=== PATIENT | male | born 1955 | race Caucasian/White ===

== ENCOUNTER 2018-06-07 09:14 | Observation (INO) | payer OTHER ==
[2018-06-07] MEDS ORDERED: NITROGLYCERIN 0.4 MG/TAB SL ONE (09:34)
[2018-06-07] MEDS ORDERED: MORPHINE 4 MG/ML SYR ONE (09:34)
[2018-06-07] MEDS ORDERED: ONDANSETRON 4 MG/2 ML VIAL ONE (09:34)
[2018-06-07 09:40] LABS: Absolute Lymphocytes (CBC) 2.1 K/uL (0.7-4.9); Absolute Neutrophil 13.1 K/uL (1.8-8.0); Basophils % 0.5 % (0-1.3); Eosinophils % 2.1 % (0-4.4); Hematocrit 50.8 % (39.6-49.0); Lymphocytes % 12.6 % (15.3-44.8); RBC Red Blood Cell Count 5.46 M/uL (4.33-5.43)
[2018-06-07] MEDS ORDERED: FAMOTIDINE 20 MG/2 ML VIAL IV ONE (09:57)
[2018-06-07 09:59] LABS: Protime INR 0.97
[2018-06-07] MEDS ORDERED: FENTANYL CITR 100 MCG/2 ML ONE (10:04)
[2018-06-07 10:05] LABS: ALT/SGPT 112 U/L (12-78); AST/SGOT 50 U/L (15-37); Albumin 4.1 g/dL (3.4-5.0); Alkaline Phosphatase 109 U/L (45-117); BUN Blood Urea Nitrogen 12 mg/dL (7-18); Bicarbonate 28 mmol/L (21-32); Bilirubin Direct 0.1 mg/dL (0-0.2); Bilirubin Total 0.6 mg/dL (0.2-1.0); Glucose Level 91 mg/dL (74-106); Magnesium 2.2 mg/dL (1.8-2.4); NT PRO-BNP 6 pg/mL (<125); Potassium 4.6 mmol/L (3.5-5.1); Protein, Total 7.5 g/dL (6.4-8.2); Sodium Level 137 mmol/L (136-145); Troponin (Emerg Dept Use Only) < 0.02 ng/mL (0.0-0.045)
[2018-06-07 10:26] LABS: Blood Morphology Comment NOT SEEN (NOT SEEN); Platelet Estimate ADEQ
--- NOTE | 2018-06-07 10:53 | RAD REPORT ---
EXAM DESCRIPTION: CT - Chest Angio - 06/07/2018 10:25 am CLINICAL HISTORY: Chest pain COMPARISON: None. TECHNIQUE: Dynamically enhanced axial 3 mm thick images of the chest were obtained during administra tion of <100> mL Isovue 370 IV contrast. Coronal and oblique reconstruction images were generated and reviewed. Exam utilizes a protocol for optimal evaluation of pulmonary arterial tree. Maximum intensity projections 3D imaging was utilized All CT scans are performed using dose optimization technique as appropriate and may include automated exposure control or mA/KV adjustment according to patient size. FINDINGS: The opacification of the pulmonary arteries is suboptimal. A central pulmonary embolus is not seen. Evaluation of segmental and subsegmental branches is limited Ascending aorta has an AP diameter of 3.9 centimeters. A pleural effusion is not seen. A pericardial effusion is not seen. A lung consolidation is not present. A fatty liver is present. IMPRESSION: Negative for a central pulmonary embolus. Evaluation of segmental and subsegmental branc hes is limited
--- NOTE | 2018-06-07 11:09 | RAD REPORT ---
EXAM DESCRIPTION: Amanda Single View06/07/2018 9:44 am CLINICAL HISTORY: Chest pain COMPARISON: 2012 FINDINGS: The lungs appear clear of acute infiltrate. The heart is normal size IMPRESSION: No acute abnormalities displayed
[2018-06-07] MEDS ORDERED: NA CHLORIDE 0.9% 500 ML ONE (11:17)
--- NOTE | 2018-06-07 11:26 | EKG ---
Test Date: 2018-06-07 Test Time: 09:22:00 Collar Trimmer: JAYLENE MEASUREMENT RESULTS: Intervals: Rate: 100 WI: 186 QRSD: 84 QT: 348 QTc: 448 [place]: P: 59 WI: 186 QRS: -33 T: 44 INTERPRETIVE STATEMENTS: Normal sinus rhythm Left axis deviation Possible Inferior infarct, age undetermined Abnormal ECG Compared to ECG 04/25/2012 23:06:50 Left-axis deviation now present Myocardial infarct finding now present Incomplete right bundle-branch block no longer present Electronically Signed On 06-07-18 11:25:55 [employer] by Jose Jennings
--- NOTE | 2018-06-07 11:53 | ER ---
Nurse's Notes [facility] Name: Bandar Mayo Age: 63 yrs Sex: Male : 1955 Arrival Date: 06/07/2018 Time: 09:15 Bed 4 Private MD: Diagnosis: Chest pain, unspecified Presentation: 06/07 09:22 Presenting complaint: Patient states: Sudden onset severe substernal chest pain that hb radiates to right neck that started at 0300 today. Transition of care: patient was not received from another setting of care. Onset of symptoms was June 07, 2018. Risk Assessment: Do you want to hurt yourself or someone else? Patient reports no desire to harm self or others. Care prior to arrival: None. 09:22 Method Of Arrival: Ambulatory 09:22 Acuity: SAMUEL 2 hb 09:37 Initial Sepsis Screen: Does the patient meet any 2 criteria? No. Patient's initial ph sepsis screen is negative. Does the patient have a suspected source of infection? No. Patient's initial sepsis screen is negative. Triage Assessment: 09:24 General: Appears distressed, uncomfortable, Behavior is cooperative, anxious. Pain: hb Pain currently is 7 out of 10 on a pain scale. Neuro: Level of Consciousness is awake, alert, obeys commands, Oriented to person, place, time, situation. Cardiovascular: Reports chest pain, shortness of breath. Respiratory: Airway is patent Respiratory effort is even, pursed lip, Respiratory pattern is regular, symmetrical. Historical: - Allergies: 09:24 No Known Allergies; hb - Home Meds: 09:24 None [Active]; hb - PMHx: 09:24 None; hb - Immunization history:: Adult Immunizations up to date. - Social history:: Smoking status: Patient/guardian denies using tobacco. - Ebola Screening: : No symptoms or risks identified at this time. Screenin:37 Abuse screen: Denies threats or abuse. Denies injuries from another. Nutritional ph screening: No deficits noted. Tuberculosis screening: No symptoms or risk factors identified. Fall Risk None identified. Assessment: 09:30 General: Appears in no apparent distress. uncomfortable, obese, well groomed, Behavior ph is calm, cooperative, appropriate for age, Denies fever, feeling ill. Pain: Complains of pain in mid-sternal area Pain radiates to right supraclavicular area and back Pain currently is 8 out of 10 on a pain scale. Pain began 0300 today Aggravated by deep breathing. Neuro: Level of Consciousness is awake, alert, obeys commands, Oriented to person, place, time, situation. Cardiovascular: Reports chest pain, nausea, shortness of breath, Denies syncope, vomiting, Capillary refill < 3 seconds in bilateral fingers Patient's skin is warm and dry. Rhythm is sinus tachycardia Chest pain is described as severe, quality is pressure, is located in substernal area radiates to right back neck began suddenly, at 0300 this morning is aggravated by breathing. Respiratory: Airway is patent Respiratory effort is even, unlabored, Respiratory pattern is regular, symmetrical. GI: No signs and/or symptoms were reported involving the gastrointestinal system. Derm: Skin is intact, is healthy with good turgor, Skin is pink, warm \\T\\ dry. Musculoskeletal: Circulation, motion, and sensation intact. Range of motion: intact in all extremities. 09:42 Reassessment: Patient appears in no apparent distress at this time. Patient and/or ph family updated on plan of care and expected duration. Pain level reassessed. Patient is alert, oriented x 3, equal unlabored respirations, skin warm/dry/pink. Pt reports that pain has decreased to 1/10 after medications, BP also decreased to 122/87, rhythm remains sinus tach at 103 bpm. 10:01 Reassessment: Pt reports that pain is returning, states, " It's like at a 3 and then it ph shoots up to a 9, it comes and goes." ERP notified and at bedside, see MAR. 11:00 Reassessment: Patient appears in no apparent distress at this time. Patient and/or ph family updated on plan of care and expected duration. Pain level reassessed. Patient is alert, oriented x 3, equal unlabored respirations, skin warm/dry/pink. Pt rates pain 3/10 at this time, VSS, will continue to monitor. 12:00 Reassessment: Patient appears in no apparent distress at this time. Patient and/or ph family updated on plan of care and expected duration. Pain level reassessed. Patient is alert, oriented x 3, equal unlabored respirations, skin warm/dry/pink. Pt reports that pain is 2/10 at this time, denies nausea or SOB, awaiting room assignment, VSS, at bedside. 13:00 Reassessment: Patient appears in no apparent distress at this time. Patient and/or ph family updated on plan of care and expected duration. Pain level reassessed. Patient is alert, oriented x 3, equal unlabored respirations, skin warm/dry/pink. Pt resting quietly, reports pain 2/10 and ninfa nausea or SOB at this time. 14:00 Reassessment: Patient appears in no apparent distress at this time. Patient and/or ph family updated on plan of care and expected duration. Pain level reassessed. Patient is alert, oriented x 3, equal unlabored respirations, skin warm/dry/pink. Pt taken to inpatient room by tech, accompanied by family. Vital Signs: 09:23 BP 167 / 107; Pulse 104; Resp 20; Temp 98.2; Pulse Ox 97% on R/A; Pain 7/10; hb 09:36 BP 122 / 87; Pulse 112; Resp 20; Pulse Ox 95% on R/A; Pain 1/10; ph 11:00 BP 109 / 80; Pulse 79; Resp 18; Pulse Ox 96% on 2 lpm NC; ph 12:04 BP 125 / 72; Pulse 80; Resp 18; Pulse Ox 97% on 2 lpm NC; ph 13:00 BP 118 / 68; Pulse 81; Resp 18; Pulse Ox 99% on 2 lpm NC; ph 13:45 BP 120 / 71; Pulse 78; Resp 16; Temp 98.0; Pulse Ox 99% on 2 lpm NC; ph Vitals: 11:00 Cardiac Rhythm Assessment Sinus rhythm. ph ED Course: 09:15 Patient arrived in ED. as 09:21 Param Faust MD is Attending Physician. kdr 09:21 Preethi Nolan, GABRIELA is Primary Nurse. ph 09:22 Arm band placed on. hb 09:23 Triage completed. hb 09:25 Initial lab(s) drawn, by me, held in ED. Inserted saline lock: 20 gauge in right sg antecubital area, using aseptic technique. Blood collected. Oxygen administration via nasal cannula \\T\\ 2L/min. 09:28 EKG done, by business technology architect. reviewed by Param Faust MD. sm3 09:37 Patient has correct armband on for positive identification. Placed in gown. Bed in low ph position. Call light in reach. Side rails up X 1. bus monitor on. Pulse ox on. NIBP on. 09:38 X-ray completed. Portable x-ray completed in exam room. Patient tolerated procedure jb2 well. 09:41 XRAY Chest (1 view) In Process Unspecified. EDMS 10:23 CT completed. Patient tolerated procedure well. Patient moved to CT via wheelchair. Patient moved back from CT. 10:24 CT Chest Angio In Process Unspecified. EDMS 11:29 EKG done, by business technology architect. reviewed by Param Faust MD. sm3 11:51 Lorenza Mccain MD is Hospitalizing Provider. kdr 14:00 No provider procedures requiring assistance completed. Patient admitted, IV remains in ph place. Administered Medications: 09:33 Drug: Zofran 4 mg Route: IVP; Site: right antecubital; ph 09:35 Drug: morphine 4 mg Route: IVP; Site: right antecubital; ph 09:35 Drug: Nitroglycerin 0.4 mg Route: Sublingual; ph 09:55 Drug: Pepcid 20 mg Route: IVP; Site: right antecubital; ph 10:03 Drug: fentaNYL (PF) 25 mcg Route: IVP; Site: right antecubital; ph 12:40 Drug: fentaNYL (PF) 25 mcg Route: IVP; Site: right antecubital; ph 14:05 Not Given (Hemodynamic Parameters): NS 0.9% 500 ml IV at bolus once ph Outcome: 11:51 Decision to Hospitalize by Provider. kdr 14:05 Patient left the ED. ph 14:05 Admitted to Tele accompanied by tech, family with patient, via wheelchair, with oxygen, ph with chart. 14:05 Condition: stable 14:05 Instructed on the need for admit. Signatures: Dispatcher [employer] EDMS Maxx Lugo RN RN Param Faust MD MD [facility] Antony Renee Susan sj Martinez, Amelia as Hall, Patricia, RN RN Cecilia Worthy RN RN Vanessa Lange sm3
--- NOTE | 2018-06-07 11:53 | EDPHYS ---
Physician Documentation [facility] Name: Bandar Mayo Age: 63 yrs Sex: Male : 1955 Arrival Date: 06/07/2018 Time: 09:15 Bed 4 Private MD: ED Physician Param Faust HPI: 06/07 11:51 This 63 yrs old Male presents to ER via Ambulatory with complaints of Chest kdr Pain. 11:51 The patient or guardian reports chest pain that is located primarily in the substernal kdr area, anterior chest wall. Onset: acutely, suddenly, at 07:00. The pain radiates to neck, Associated signs and symptoms: Pertinent positives: nausea, shortness of breath, Pertinent negatives: abdominal pain, syncope, vomiting. The chest pain is described as aching, sharp, stabbing. Duration: The patient or guardian reports a single episode, that is still ongoing, and worsening. Modifying factors: The symptoms are alleviated by nothing. the symptoms are aggravated by activity, movement. Severity of pain: At its worst the pain was incapacitating in the emergency department the pain is unchanged Intermittent, waxes and wanes. The patient has not recently seen a physician. Historical: - Allergies: 09:24 No Known Allergies; hb - Home Meds: 09:24 None [Active]; hb - PMHx: 09:24 None; hb - Immunization history:: Adult Immunizations up to date. - Social history:: Smoking status: Patient/guardian denies using tobacco. - Ebola Screening: : No symptoms or risks identified at this time. ROS: 11:51 Constitutional: Negative for fever, chills, and weight loss, Eyes: Negative for injury, kdr pain, redness, and discharge, ENT: Negative for injury, pain, and discharge, Neck: Negative for injury, pain, and swelling, Respiratory: Negative for shortness of breath, cough, wheezing, and pleuritic chest pain, Abdomen/GI: Negative for abdominal pain, nausea, vomiting, diarrhea, and constipation, Back: Negative for injury and pain, : Negative for injury, bleeding, discharge, and swelling, MS/Extremity: Negative for injury and deformity, Skin: Negative for injury, rash, and discoloration, Neuro: Negative for headache, weakness, numbness, tingling, and seizure activity. Psych: Negative for depression, anxiety, suicide ideation, homicidal ideation, and hallucinations, Allergy/Immunology: Negative for hives, rash, and allergies, Endocrine: Negative for neck swelling, polydipsia, polyuria, polyphagia, and marked weight changes, Hematologic/Lymphatic: Negative for swollen nodes, abnormal bleeding, and unusual bruising. 11:51 Cardiovascular: Positive for chest pain, Negative for edema, orthopnea, palpitations, paroxysmal nocturnal dyspnea. Exam: 11:51 Constitutional: This is a well developed, well nourished patient who is awake, alert, kdr and in moderate to severe distress. Head/Face: Normocephalic, atraumatic. Eyes: Pupils equal round and reactive to light, extra-ocular motions intact. Lids and lashes normal. Conjunctiva and sclera are non-icteric and not injected. Cornea within normal limits. Periorbital areas with no swelling, redness, or edema. Neck: Trachea midline, no thyromegaly or masses palpated, and no cervical lymphadenopathy. Supple, full range of motion without nuchal rigidity, or vertebral point tenderness. No Meningismus. Chest/axilla: Normal chest wall appearance and motion. Nontender with no deformity. No lesions are appreciated. Cardiovascular: Regular rate and rhythm with a normal S1 and S2. No gallops, murmurs, or rubs. Normal PMI, no JVD. No pulse deficits. Respiratory: Lungs have equal breath sounds bilaterally, clear to auscultation and percussion. No rales, rhonchi or wheezes noted. No increased work of breathing, no retractions or nasal flaring. Abdomen/GI: Soft, non-tender, with normal bowel sounds. No distension or tympany. No guarding or rebound. No evidence of tenderness throughout. Back: No spinal tenderness. No costovertebral tenderness. Full range of motion. Skin: Warm, dry with normal turgor. Normal color with no rashes, no lesions, and no evidence of cellulitis. MS/ Extremity: Pulses equal, no cyanosis. Neurovascular intact. Full, normal range of motion. Neuro: Awake and alert, GCS 15, oriented to person, place, time, and situation. Cranial nerves II-XII grossly intact. Motor strength 5/5 in all extremities. Sensory grossly intact. Cerebellar exam normal. Normal gait. Psych: Awake, alert, with orientation to person, place and time. Behavior, mood, and affect are within normal limits. Vital Signs: 09:23 BP 167 / 107; Pulse 104; Resp 20; Temp 98.2; Pulse Ox 97% on R/A; Pain 7/10; hb 09:36 BP 122 / 87; Pulse 112; Resp 20; Pulse Ox 95% on R/A; Pain 1/10; ph 11:00 BP 109 / 80; Pulse 79; Resp 18; Pulse Ox 96% on 2 lpm NC; ph 12:04 BP 125 / 72; Pulse 80; Resp 18; Pulse Ox 97% on 2 lpm NC; ph 13:00 BP 118 / 68; Pulse 81; Resp 18; Pulse Ox 99% on 2 lpm NC; ph 13:45 BP 120 / 71; Pulse 78; Resp 16; Temp 98.0; Pulse Ox 99% on 2 lpm NC; ph MDM: 11:51 Patient medically screened. kdr 11:51 ROLANDA Risk Score: 1 - patient's age is greater or equal to 65 years. Data reviewed: [facility] vital signs, nurses notes. Counseling: I had a detailed discussion with the patient and/or guardian regarding: lab results, radiology results, the need for further work-up and treatment in the hospital. 06/07 09:21 Order name: Basic Metabolic Panel; Complete Time: 11:00 [facility] 06/07 09:21 Order name: CBC with Diff; Complete Time: 11:00 [facility] 06/07 09:21 Order name: LFT's; Complete Time: 11:00 [facility] 06/07 09:21 Order name: Magnesium; Complete Time: 11:00 [facility] 06/07 09:21 Order name: NT PRO-BNP; Complete Time: 11:00 [facility] 06/07 09:21 Order name: PT-INR; Complete Time: 11:00 [facility] 06/07 09:21 Order name: Troponin (emerg Dept Use Only); Complete Time: 11:00 [facility] 06/07 09:21 Order name: XRAY Chest (1 view); Complete Time: 11:42 kdr 06/07 09:30 Order name: CT Chest Angio; Complete Time: 11:42 kdr 06/07 10:00 Order name: Manual Differential; Complete Time: 11:00 EDMS 06/07 12:17 Order name: Echo with Doppler EDMS 06/07 12:17 Order name: Abdomen Exam Complete EDMS 06/07 09:21 Order name: EKG; Complete Time: 09:23 [facility] 06/07 09:21 Order name: Cardiac monitoring; Complete Time: :36 [facility] 06/07 09:21 Order name: EKG - Nurse/Tech; Complete Time: :36 [facility] 06/07 09:21 Order name: IV Saline Lock; Complete Time: :36 [facility] 06/07 09:21 Order name: Labs collected and sent; Complete Time: [facility] 06/07 09:21 Order name: O2 Per Protocol; Complete Time: :36 [facility] 06/07 09:21 Order name: O2 Sat Monitoring; Complete Time: :36 [facility] 06/07 11:31 Order name: EKG Electrocardiogram EDMS 06/07 12:17 Order name: CONS Physician Consult [facility] Administered Medications: 09:33 Drug: Zofran 4 mg Route: IVP; Site: right antecubital; ph 09:35 Drug: morphine 4 mg Route: IVP; Site: right antecubital; ph 09:35 Drug: Nitroglycerin 0.4 mg Route: Sublingual; ph 09:55 Drug: Pepcid 20 mg Route: IVP; Site: right antecubital; ph 10:03 Drug: fentaNYL (PF) 25 mcg Route: IVP; Site: right antecubital; ph 12:40 Drug: fentaNYL (PF) 25 mcg Route: IVP; Site: right antecubital; ph 14:05 Not Given (Hemodynamic Parameters): NS 0.9% 500 ml IV at bolus once ph Disposition: 06/07/18 11:51 Hospitalization ordered by Lorenza Mccain for Observation. Preliminary diagnosis is Chest pain, unspecified. - Bed requested for Telemetry/MedSurg (observation). - Status is Observation. ph - Condition is Fair. - Problem is new. - Symptoms have improved. UTI on Admission? No Signatures: Dispatcher [employer] [facility] Pam Chin RN RN dw Rittger, Kevin, MD MD [facility] Preethi Nolan RN RN Cecilia Worthy RN RN Corrections: (The following items were deleted from the chart) 12:54 11:51 Hospitalization Ordered by Lorenza Mccain MD for Observation. Preliminary diagnosis is Chest pain, unspecified. Bed requested for Telemetry/MedSurg (observation). Status is Observation. Condition is Fair. Problem is new. Symptoms have improved. UTI on Admission? No. kdr 14:05 12:54 06/07/2018 11:51 Hospitalization Ordered by Lorenza Mccain MD for Observation. ph Preliminary diagnosis is Chest pain, unspecified. Bed requested for Telemetry/MedSurg (observation). Status is Observation. Condition is Fair. Problem is new. Symptoms have improved. UTI on Admission? No. dw
--- NOTE | 2018-06-07 13:32 | RAD REPORT ---
EXAM DESCRIPTION: US - Abdomen Exam Complete - 06/07/2018 12:57 pm CLINICAL HISTORY: Abnormal LFTs COMPARISON: MRI May 2012 FINDINGS: Gallbladder is absent. Common bile duct is normal at 4 mm with no common duct stone identi fied. Liver is 17-18 cm in maximum dimension. There is a coarsened, increased echogenicity throughout the liver parenchyma with a poor sonographic penetrance. This is a common presentation of diffuse fa tty infiltration of the liver. Sensitivity for liver lesion detection is significantly reduced with t his degree of fatty infiltration. No focal liver lesions seen. No acute splenic finding. The pancreas is obscured. No hydronephrosis or suspicious mass in either kidney. Aorta and IVC are mostly obscured. No abnormality suspected. No ascites or bulky lymphadenopathy. IMPRESSION: Diffuse fatty infiltration of a prominent sized liver. The degree of fatty infiltration decreases sensitivity for liver lesion detection. Cholecystectomy changes are present. No biliary tree dilatation. Pancreas, IVC and aorta were too obscured to allow adequate assessment.
[2018-06-07] MEDS ORDERED: ONDANSETRON 4 MG/2 ML VIAL IV PRN (13:42)
--- NOTE | 2018-06-07 14:37 | P.HP ---
Certification for Inpatient Patient admitted to: Observation With expected LOS: <2 Midnights Patient will require the following post-hospital care: None Practitioner: I am a practitioner with admitting privileges, knowledge of patient current condition, hospital course, and medical plan of care. Services: Services provided to patient in accordance with Admission requirements found in Title 42 Section 412.3 of the Code of Federal Regulations Patient History Date of Service: 06/07/18 Reason for admission: Chest pain History of Present Illness: This is a 63-year-old male with significant past medical history of hypertension who presented to the ED complaining of having some chest pain and shortness of breath. Patient stated that last night he was sleeping and around 3:00 a.m. noted that he was having some sharp shooting chest pain and the epigastric area which was staying in the mid sternum area afterwards. Patient took Tylenol however did not help with chest pain eventually he did fall asleep and woke up around 6:00 a.m. again with sharp shooting chest pain and thus decided to come to the ER. Chest pain at its worst was a 10/10 and was sharp in nature. Patient has not had similar episodes in the past. Patient states that the pain does not radiate anywhere and remains in the substernal area. Patient also noted having some dyspnea along with chest pain. No other complaints to offer at this time. Denies having any nausea vomiting or any other acute abnormality. Patient is denies smoking or drugs however does state that he uses 2 beers of alcohol every night. Allergies No Known Allergies Allergy (Unverified 04/25/12 23:14) Home Medications: NK [No Home Meds] 06/07/18 - Past Medical/Surgical History Past Medical History: Reviewed- Non-Contributory -: Hypertension Past Surgical History: Patient denies surgical history - Family History Family History: Reviewed- Non-Contributory - Family History Father Notes: lung cancer - Social History Smoking Status: Never smoker Alcohol use: Yes CD- Drugs: No Caffeine use: No Place of Residence: Home Review of Systems 10-point ROS is otherwise unremarkable Physical Examination - Vital Signs Temperature: 98.2 F Blood Pressure: 122/87 Pulse: 112 Respirations: 20 - Physical Exam General: Alert, In no apparent distress HEENT: Atraumatic, PERRLA, Mucous membr. moist/pink, EOMI, Sclerae nonicteric Neck: Supple, 2+ carotid pulse no bruit, No LAD, Without JVD or thyroid abnormality Respiratory: Clear to auscultation bilaterally, Normal air movement Cardiovascular: Regular rate/rhythm, Normal S1 S2 Gastrointestinal: Normal bowel sounds, No tenderness Musculoskeletal: No tenderness Integumentary: No rashes Neurological: Normal gait, Normal speech, Normal strength at 5/5 x4 extr, Normal tone, Normal affect Lymphatics: No axilla or inguinal lymphadenopathy - Studies Laboratory Data (last 24 hrs) 06/07/18 09:30: PT 11.5, INR 0.97 06/07/18 09:30: WBC 16.6 H, Hgb 17.1, Hct 50.8 H, Plt Count 295 06/07/18 09:30: Sodium 137, Potassium 4.6, BUN 12, Creatinine 0.98, Glucose 91, Magnesium 2.2, Total Bilirubin 0.6, AST 50 H, ALT 112 H, Alkaline Phosphatase 109 Assessment and Plan - Problems (Diagnosis) (1) Chest pain Current Visit: Yes Status: Acute Plan: Chest pain most likely secondary to demand ischemia secondary to elevated blood pressure versus undiagnosed LEONA -troponin x2 ordered at this time -cardiology consulted. Appreciated recommendations -echocardiogram and stress test for tomorrow -started on aspirin and beta-lacy at this time -patient will need to get his blood pressure within normal ranges and have outpatient sleep study -will follow up with patient after echocardiogram and stress test was done Qualifiers: Chest pain type: unspecified Qualified Code(s): R07.9 - Chest pain, unspecified (2) Elevated LFTs Current Visit: Yes Status: Acute Plan: Elevated LFTs. Patient does have alcoholic beverage 2 beers every night. -abdominal ultrasound consistent with fatty infiltrate. -alcohol cessation given to the patient (3) Hypertension Current Visit: Yes Status: Chronic Plan: Will restart home medication at this time -elevated initially in the ER causing demand ischemia. Qualifiers: Hypertension type: essential hypertension Qualified Code(s): I10 - Essential (primary) hypertension (4) LEONA (obstructive sleep apnea) Current Visit: Yes Status: Acute Plan: Undiagnosed LEONA. -patient states that he does snore at night time and has been having tiredness during the daytime. -Patient's has noticed him having apneic episodes at night time as well. -patient will need outpatient sleep study done to be evaluated for LEONA and have a CPAP mask ordered if he does qualify for it. (5) Alcohol abuse Current Visit: Yes Status: Acute Plan: Patient takes about 2-3 bottles of beer every night. Has been doing it for more than 20 years. - Plan Patient will be admitted to medical-surgical floor for chest pain and elevated LFTs. Will get a echocardiogram and firm stress test done along with liver ultrasound. Will follow up with patient post diagnostic test. Discharge Plan: Home Plan to discharge in: 48 Hours - Advance Directives Does patient have a Living Will: No Does patient have a Durable POA for Healthcare: No - Code Status/Comfort Care Code Status Assessed: Yes Critical Care: No
[2018-06-07 14:52] VITALS: BMI 29.6
[2018-06-07] MEDS: ACETAMINOPHEN 500 MG TAB PO PRN ×2 (15:00→18:33)
[2018-06-07] MEDS: ENOXAPARIN 40 MG/0.4 ML SQ SCH (15:01)
[2018-06-07] MEDS ORDERED: INFLUENZA VACCINE (for 3y+) 0.5 ML DOSE IMVAC ONE (16:00)
[2018-06-07] MEDS ORDERED: PNEUMOCOCCAL VACCINE 0.5 ML IMVAC ONE (16:00)
[2018-06-07 18:02] LABS: Urine Appearance CLEAR; Urine Bilirubin NEGATIVE (NEG); Urine Blood NEGATIVE (NEG); Urine Color YELLOW; Urine Glucose NEGATIVE (NEG); Urine Protein NEGATIVE (NEG); Urine Specific Gravity >=1.030 (1.005-1.030); Urine Urobilinogen 0.2 mg/dL (0.2-1.0)
[2018-06-07 20:26] LABS: Urine Bacteria <20 /HPF (NONE SEEN); Urine Culture Reflex Order NOT NEEDED; Urine RBC <5 /HPF (NONE SEEN)
[2018-06-07] MEDS ORDERED: ATORVASTATIN 40 MG TAB PO SCH (21:00)
[2018-06-07 21:59] VITALS: O2SAT 94
[2018-06-08] MEDS ORDERED: METOPROLOL TAR 25 MG TAB PO SCH (06:00)
[2018-06-08 06:42] LABS: Albumin 3.4 g/dL (3.4-5.0); Potassium 4.5 mmol/L (3.5-5.1); Protein, Total 6.7 g/dL (6.4-8.2)
[2018-06-08] MEDS ORDERED: REGADENOSON 0.4 MG/5 ML SYR IV ONE (07:57)
[2018-06-08 08:49] VITALS: BP 127/69; TEMP 98
[2018-06-08] MEDS ORDERED: ASPIRIN EC 81 MG TAB PO SCH (09:00)
--- NOTE | 2018-06-08 09:35 | RAD REPORT ---
EXAM DESCRIPTION: NM - Rest Stress Cardiac Imaging - 06/08/2018 9:15 am CLINICAL HISTORY: CP Chest pain. COMPARISON: No comparisons TECHNIQUE: The patient was administered approximately 10mCi of Tc 99m Sestamibi prior to resting SPE CT imaging of the heart. The patient was then administered approximately 30 mCi of Tc 99m Sestamibi f ollowing exercise or pharmacologic stress. Multiplanar SPECT images were reviewed. FINDINGS: No stress induced ischemic defect is seen to suggest stress induced ischemia. No fixed def ect is seen to suggest hibernating myocardium or scarred myocardium. The end diastolic volume is 99 ml, the end systolic volume is 41 ml, and the ejection fraction is 58 %. IMPRESSION: No stress induced ischemia.
[2018-06-08] MEDS: ENOXAPARIN 40 MG/0.4 ML SQ SCH (09:45)
--- NOTE | 2018-06-08 13:20 | P.SSS ---
Patient History Date of Service: 06/08/18 Reason for admission: Chest pain History of Present Illness: This is a 63-year-old male with significant past medical history of hypertension who presented to the ED complaining of having some chest pain and shortness of breath. Patient stated that last night he was sleeping and around 3:00 a.m. noted that he was having some sharp shooting chest pain and the epigastric area which was staying in the mid sternum area afterwards. Patient took Tylenol however did not help with chest pain eventually he did fall asleep and woke up around 6:00 a.m. again with sharp shooting chest pain and thus decided to come to the ER. Chest pain at its worst was a 10/10 and was sharp in nature. Patient has not had similar episodes in the past. Patient states that the pain does not radiate anywhere and remains in the substernal area. Patient also noted having some dyspnea along with chest pain. No other complaints to offer at this time. Denies having any nausea vomiting or any other acute abnormality. Patient is denies smoking or drugs however does state that he uses 2 beers of alcohol every night. Allergies No Known Allergies Allergy (Unverified 04/25/12 23:14) Home Medications: NK [No Home Meds] 06/07/18 - Past Medical/Surgical History Has patient received pneumonia vaccine in the past: No Diabetic: No -: Hypertension -: Carpal Tunnel Surgery both hands -: Bilateral elbow surgery -: Bilateral Shoulder Tear Surgery -: Cholecystectomy -: Appendectomy -: Bilateral knee surgery - Family History Family History: Reviewed- Non-Contributory - Family History Father Notes: lung cancer - Social History Smoking Status: Never smoker Alcohol use: Yes CD- Drugs: No Caffeine use: No Place of Residence: Home Review of Systems 10-point ROS is otherwise unremarkable Physical Examination - Vital Signs Temperature: 98.0 F Blood Pressure: 127/69 Pulse: 65 Respirations: 18 Pulse Ox (%): 93 - Physical Exam General: Alert, In no apparent distress HEENT: Atraumatic, PERRLA, Mucous membr. moist/pink, EOMI, Sclerae nonicteric Neck: Supple, 2+ carotid pulse no bruit, No LAD, Without JVD or thyroid abnormality Respiratory: Clear to auscultation bilaterally, Normal air movement Cardiovascular: Regular rate/rhythm, Normal S1 S2 Gastrointestinal: Normal bowel sounds, No tenderness Musculoskeletal: No tenderness Integumentary: No rashes Neurological: Normal gait, Normal speech, Normal strength at 5/5 x4 extr, Normal tone, Normal affect Lymphatics: No axilla or inguinal lymphadenopathy - Diagnosis (Problem(s)) (1) Chest pain Onset Date: 06/08/18 Current Visit: Yes Status: Acute Qualifiers: Chest pain type: unspecified Qualified Code(s): R07.9 - Chest pain, unspecified (2) Elevated LFTs Onset Date: 06/08/18 Current Visit: Yes Status: Acute (3) Hypertension Onset Date: 06/08/18 Current Visit: Yes Status: Chronic Qualifiers: Hypertension type: essential hypertension Qualified Code(s): I10 - Essential (primary) hypertension (4) LEONA (obstructive sleep apnea) Onset Date: 06/08/18 Current Visit: Yes Status: Acute (5) Alcohol abuse Onset Date: 06/08/18 Current Visit: Yes Status: Acute Treatment Summary: Overall during the hospital stay patient remained stable The patient was initially admitted to the hospital for chest pain and elevated liver enzymes. Patient's troponin x2 was negative. EKG had nonspecific changes. Patient had ACS workup done here in the hospital with echocardiogram and stress test which were both within normal limits. Patient also had elevated liver enzymes most likely secondary to his alcohol abuse. Liver ultrasound was negative for any acute abnormality except fatty infiltration. Patient's chest pain was most likely secondary to demand ischemia from the elevated blood pressure and possible underlying LEONA that has been untreated. Patient was advised to follow up with primary care provider and get as outpatient sleep study done and have a better control of his blood pressure. Patient demonstrated understanding and thus was discharged home under stable condition. - Disposition Disposition: ROUTINE DISCHARGE Condition: GOOD Patient Discharge Instructions: Please f.u with PCP and Pulmonology in 1 to 2 week post discharge. No New medication. You Will need to F.u with PCP to get sleep study done to be evaluated for LEONA Diet: Regular Activity: Ad emilia
--- NOTE | 2018-06-08 14:05 | EKG ---
Test Date: 2018-06-07 Test Time: 11:11:08 Sash Repairer: JAYLENE MEASUREMENT RESULTS: Intervals: Rate: 77 MD: 218 QRSD: 90 QT: 368 QTc: 416 [place]: P: 51 MD: 218 QRS: 4 T: 38 INTERPRETIVE STATEMENTS: Sinus rhythm with 1st degree AV block Otherwise normal ECG Compared to ECG 06/07/2018 09:22:00 First degree AV block now present Left-axis deviation no longer present Myocardial infarct finding no longer present Electronically Signed On 06-08-18 13:59:16 CONCRETE FLOAT MAKER by Jose Jennings
--- NOTE | 2018-06-08 14:34 | ECHO ---
HEIGHT: 5 ft 8 in WEIGHT: 195 lb 2 oz DATE OF STUDY: 06/07/[address]: Lorenza Mccain MD 2-DIMENSIONAL: YES M.MODE: YES DOPPLER: YES COLOR FLOW: YES TDS: YES PORTABLE: DEFINITY: BUBBLE STUDY: DIAGNOSIS: CHEST PAIN CARDIAC HISTORY: CATHERIZATION: NO SURGERY: NO PROSTHETIC VALVE: NO PACEMAKER: NO MEASUREMENTS (cm) DIASTOLIC (NORMALS) SYSTOLIC (NORMALS) IVSd 1.2 (0.6-1.2) LA Diam 3.9 (1.9-4.0) LVEF 28% LVIDd 3.6 (3.5-5.7) LVIDs 2.6 (2.0-3.5) %FS 28% LVPWd 1.3 (0.6-1.2) Ao Diam 2.8 (2.0-3.7) 2 DIMENSIONAL ASSESSMENT: RIGHT ATRIUM: NORMAL LEFT ATRIUM: NORMAL RIGHT VENTRICLE: NORMAL LEFT VENTRICLE: NORMAL TRICUSPID VALVE: NORMAL MITRAL VALVE: NORMAL PULMONIC VALVE: NORMAL AORTIC VALVE: NORMAL PERICARDIAL EFFUSION: NONE AORTIC ROOT: NORMAL LEFT VENTRICULAR WALL MOTION: NORMAL DOPPLER/COLOR FLOW: NORMAL COMMENTS: NORMAL TWO DIMENSIONAL ECHOCARDIOGRAM WITH DOPPLER. NO WALL MOTION ABNORMALITY. NO EFFUSION. TECHNOLOGIST: STANLEY LEBLANC
--- NOTE | 2018-06-08 15:55 | TREADPHA ---
DX: CHEST PAIN Date of Study: 06/08/08 Ht: 5 8 Wt: 195 lb 2 oz Consulting Physician: DENAE MEDICATIONS: TYLENOL, ASPIRIN, LIPITOR, LOVENOX, LOPRESSOR, ZOFRAN. HISTORY: 63 YEAR MALE, COMPLAINTS OF CHEST PAIN, HISTORY, NONE. NON-SMOKER, DRINKS TWO BEERS DAILY. PHYSICIAL EXAMINATION: RESTING B.P.: 126/96 RESTING H.R.: 64 RESTING EKG: NORMAL SINUS RHYTHM, FIRST-DEGREE AV BLOCK. PROTOCOL: LEXISCAN EXERCISE TIME: 3:30 B.P. AT PEAK STRESS: 115/83 IMPRESSION: LEXISCAN INJECTED, FOLLOWED BY CARDIOLITE PER PROTOCOL, SEE NUCLEAR MEDICINE REPORT. NO SUPRAVENTRICULAR TACHYCARDIA. NO VENTRICULAR TACHYCARDIA. NO PREMATURE ATRIAL COMPLEXS. NO PREMATURE VENTRICULAR COMPLEXS. PATIENT REPORTED NO CHEST PAIN, OR TIGHTNESS THROUGHOUT PROCEDURE AND DURING RECOVERY.
[2018-06-08] MEDS ORDERED: PNEUMOCOCCAL VACCINE 0.5 ML IMVAC ONE (16:00)
[2018-06-08] MEDS ORDERED: INFLUENZA VACCINE (for 3y+) 0.5 ML DOSE IMVAC ONE (16:00)
--- NOTE | 2018-06-08 23:41 | CON ---
Date of Consultation: 06/08/[address] Mccain's service for chest pain on 06/07/2018. I saw the patient on 06/08/2018. Reason For Consultation: Chest pain. History Of Present Illness: Mr. Mayo is a 63-year-old male, has really no significant past medi juliana history. He developed a substernal chest pressure that has been going on for approximately 48 ho urs, radiating to the right neck and the back of his head. Had some nausea. No vomiting. No diapho resis. No shortness of breath. Denied PND, orthopnea, pedal edema, palpitation, or syncope. He had a white count of 16,000. Chest x-ray was negative. EKG showed possible old inferior NE. Chest thaddeus n persist. Past Medical History: Otherwise negative. Allergies: NONE. Review of Systems: Negative. Social History: Positive for tobacco. Family History: Negative. Medications: At home are none. Physical Examination: General: Mr. Mayo was still in mild discomfort, anxious. Vital Signs: Stable otherwise. Afebrile. HEENT: Negative. Neck: Supple with no bruit. Chest: Clear to auscultation and percussion. Cardiac: Revealed a regular rhythm and rate without any murmurs, gallops, or rubs. Abdomen: Benign. Extremities: Revealed no clubbing, cyanosis, or edema. Diagnostic Data: As stated earlier. Impression And Plan: Atypical chest pain in that symptoms have lasted for almost 2 days continuously without any relief and without any relationship to food, exertion. I think his symptoms are more li harrison to be related to gastroesophageal reflux disease. The patient actually woke up with his symptom s. Nevertheless, he is 63, smoker, and I think a stress test and an echocardiogram are necessary to rule out coronary artery disease. We will see what those show prior to making final decisions. SYDNIE/RAN Voice ID: [id number] Report ID: [id number]
== END 2018-06-08 15:35 | disposition home or self-care (01) ==
LOC: ER 09:14 → ERHOLD 12:14 → 4TH 13:30
PROVIDERS: ADMIT Family Medicine; ATTEND Family Medicine
DX: R07.9 Chest pain, unspecified (principal); I10 Essential (primary) hypertension; R79.89 Other specified abnormal findings of blood chemistry; F10.10 Alcohol abuse, uncomplicated; Z23 Encounter for immunization
CPT/HCPCS: 36415; 71045; 71275; 76700; 78452; 80048; 80053; 80061; 80076; 81001; 83036; 83735; 83880; 84484 ×3; 85025 ×2; 85610; 90670; 93005 ×2; 93017; 93306; 96374; 96375; A9500; G0008; G0009; G0378; J1650 ×2; J2405; J2785; J3010; Q2035; Q9967

== ENCOUNTER 2020-07-27 15:14 | Observation (INO) | payer OTHER ==
--- OUTSIDE RECORDS SUMMARY | 2020-07-27 15:17 | XMS REPORT | Continuity of Care Document ---
:1955 Author Organization [facility] t Address [address] [place] [address] Care Team Providers Name Role Phone Unavailable Unavailable Unavailable Problems This patient has no known problems. Allergies, Adverse Reactions, Alerts This patient has no known allergies or adverse reactions. Medications Ordered Filled Start Stop Current Ordering Indication Dosage Frequency Signature Comments Components Source Medication Medication Date Date Medication? Clinician (SIG) Name Name Vitamin D Vitamin D Yes Harinder [address] [facility] Magdalena Root Magdalena Root Yes Harinder as [facility] Tumersaid Tumersaid Yes Harinder not [facility] Glucosamine Glucosamine Yes Harinder not [facility] Procedures This patient has no known procedures. Encounters Start End Encounter Admission Attending Care Care Encounter Source Date/Time Date/Time Type Type Clinicians Facility Department ID 2020-06-11 2020-06-11 Outpatient [facility] [id number] [facility] 2020-06-11 2020-06-11 Outpatient [facility] [id number] [facility] 2020-06-01 2020-06-01 [id number] 2020-05-27 2020-05-27 [facility] [id number] [facility] 2020-05-18 2020-05-18 [facility] [id number] [facility] 2020-05-05 2020-05-05 [facility] [id number] [facility] 2020-05-04 2020-05-04 [facility] [id number] [facility] 2020-02-12 2020-02-12 [facility] [id number] [facility] 2019-11-18 2019-11-18 [facility] [id number] 2019-10-28 2019-10-28 [facility] [id number] 09:30[facility] 09[facility]30[facility] 2019-10-10 2019-10-10 [facility] [id number] [facility] 09:[facility]:[address] [facility] 2019-10-10 2019-10-10 [facility] [id number] 08[facility]45[facility] 08:45:[address] [facility] 2019-05-27 2019-05-27 [facility] [id number] 08:15:[facility] 08:15:[address] [facility] Results This patient has no known results.
[2020-07-27 16:21] LABS: Absolute Lymphocytes (CBC) 1.8 K/uL (0.7-4.9); Hematocrit 47.6 % (39.6-49.0); Lymphocytes % 24.4 % (15.3-44.8); MPV 8.6 fL (7.6-11.3); RBC Red Blood Cell Count 5.06 M/uL (4.33-5.43)
[2020-07-27 16:30] LABS: Protime INR 0.97
[2020-07-27 16:46] LABS: ALT/SGPT 109 U/L (12-78); AST/SGOT 45 U/L (15-37); Albumin 3.9 g/dL (3.4-5.0); Alkaline Phosphatase 114 U/L (45-117); BUN Blood Urea Nitrogen 11 mg/dL (7-18); Bicarbonate 26 mmol/L (21-32); Bilirubin Direct 0.1 mg/dL (0-0.2); Bilirubin Total 0.4 mg/dL (0.2-1.0); Glucose Level 93 mg/dL (74-106); Lipase 237 U/L (73-393); Magnesium 2.3 mg/dL (1.8-2.4); NT PRO-BNP 29 pg/mL (<125); Potassium 3.7 mmol/L (3.5-5.1); Protein, Total 7.3 g/dL (6.4-8.2); Sodium Level 141 mmol/L (136-145); Troponin (Emerg Dept Use Only) < 0.02 ng/mL (0.0-0.045)
--- NOTE | 2020-07-27 17:06 | ER ---
Nurse's Notes [facility] Name: Bandar Mayo Age: 65 yrs Sex: Male : 1955 Arrival Date: 07/27/2020 Time: 15:15 Bed 18 Private MD: Diagnosis: Chest pain, unspecified;Essential (primary) hypertension;Dyspnea Presentation: 07/27 15:28 Chief complaint: Patient states: CP for 2 weeks. CP and SOB got so severe today his ll1 made him come in. No fever or cough. Coronavirus screen: Client denies travel out of the [place] in the last 14 days. At this time, the client does not indicate any symptoms associated with coronavirus-19. Ebola Screen: Patient denies travel to an Ebola-affected area in the 21 days before illness onset. Initial Sepsis Screen: Does the patient meet any 2 criteria? No. Patient's initial sepsis screen is negative. Does the patient have a suspected source of infection? Yes: Other: chest pain. Risk Assessment: Do you want to hurt yourself or someone else? Patient reports no desire to harm self or others. Onset of symptoms was July 13, 2020. 15:28 Method Of Arrival: Wheelchair ll1 15:28 Acuity: SAMUEL 2 ll1 Triage Assessment: 19:51 General: Appears in no apparent distress. Behavior is calm, cooperative, appropriate ll2 for age. Pain: Complains of pain in chest and back and right scapular area. Historical: - Allergies: 15:30 No Known Allergies; ll1 - PMHx: 15:30 None; ll1 - PSHx: 15:30 None; ll1 - Immunization history:: Flu vaccine is up to date. - Social history:: Smoking status: Patient denies any tobacco usage or history of. - Family history:: not pertinent. Screenin:00 Abuse screen: Denies threats or abuse. Nutritional screening: No deficits noted. Tuberculosis screening: No symptoms or risk factors identified. Fall Risk None identified. Assessment: 15:42 Reassessment: Family Contact: Micaela Mayo [phone]. 16:00 Reassessment: Patient appears in no apparent distress at this time. No changes from previously documented assessment. Patient and/or family updated on plan of care and expected duration. Pain level reassessed. Patient is alert, oriented x 3, equal unlabored respirations, skin warm/dry/pink. Pain: Pain does not radiate. Pain began 4 hours ago. Cardiovascular: Reports chest pain, diaphoresis, shortness of breath. 17:00 Reassessment: Patient appears in no apparent distress at this time. No changes from bw previously documented assessment. Patient and/or family updated on plan of care and expected duration. Pain level reassessed. Patient is alert, oriented x 3, equal unlabored respirations, skin warm/dry/pink. 18:00 Reassessment: Patient appears in no apparent distress at this time. No changes from bw previously documented assessment. Patient and/or family updated on plan of care and expected duration. Pain level reassessed. Patient is alert, oriented x 3, equal unlabored respirations, skin warm/dry/pink. 19:51 Reassessment: Patient and/or family updated on plan of care and expected duration. Pain ll2 level reassessed. Patient is alert, oriented x 3, equal unlabored respirations, skin warm/dry/pink. report given to GABRIELA Hu. Vital Signs: 15:28 BP 168 / 96; Pulse 72; Resp 18; Temp 98.2; Pulse Ox 96% on R/A; Pain 10/10; ll1 16:05 BP 139 / 71; Pulse 70; Resp 18; Pulse Ox 98% on R/A; bw 17:05 BP 143 / 74; Pulse 18; Resp 20; Pulse Ox 97% on R/A; bw 18:05 BP 148 / 74; Pulse 67; Resp 20; Pulse Ox 98% ; bw 18:05 BP 142 / 79; Pulse 66; Resp 18; Pulse Ox 99% on R/A; bw 19:07 BP 141 / 77; Pulse 65; Resp 20; Pulse Ox 97% on R/A; bw 19:43 Weight 94.8 kg; ll2 ED Course: 15:15 Patient arrived in ED. ds1 15:26 Red Do MD is Attending Physician. candi 15:29 Triage completed. ll1 15:30 Arm band placed on Patient placed in an exam room, on a stretcher. ll1 15:52 XRAY Chest (1 view) In Process Unspecified. EDMS 15:55 Dania Cheek RN is Primary Nurse. bw 16:00 Patient has correct armband on for positive identification. Bed in low position. Call bw light in reach. residential monitor on. Pulse ox on. NIBP on. 16:00 No provider procedures requiring assistance completed. Inserted saline lock: 20 gauge bw in right antecubital area, using aseptic technique. Patient maintains SpO2 saturation greater than 95% on room air. 16:26 CT Aorta for Dissection In Process Unspecified. EDWA 17:03 Robbie Connolly MD is Hospitalizing Provider[facility] 18:26 Basic Metabolic Panel Sent. bw 20:21 Patient admitted, IV remains in place. ll2 Administered Medications: 18:00 Drug: Aspirin Chewable Tablet 324 mg Route: PO; bw 19:14 Follow up: Response: No adverse reaction bw 18:00 Drug: morphine 2 mg Route: IVP; Site: right antecubital; bw 19:14 Follow up: Response: No adverse reaction; Marked relief of symptoms bw 18:00 Drug: Zofran (Ondansetron) 4 mg Route: IVP; Site: right antecubital; bw 19:13 Follow up: Response: No adverse reaction bw 18:00 Drug: Lopressor (metoprolol TARTRATE) 50 mg Route: PO; bw 19:13 Follow up: Response: No adverse reaction bw 18:00 Drug: Pepcid 20 mg Route: IVP; Site: right antecubital; bw 19:13 Follow up: Response: No adverse reaction bw 19:13 Follow up: Response: No adverse reaction bw 18:00 Drug: Norvasc 10 mg Route: PO; bw 19:13 Follow up: Response: No adverse reaction bw 19:30 Drug: Lovenox 1 mg/kg Route: Sub-Q; Site: abdomen; ll2 Outcome: 17:05 Decision to Hospitalize by Provider. candi 20:20 Admitted to Tele accompanied by tech, via wheelchair, Report called to GABRIELA Hu ll2 20:20 Condition: stable 20:20 Instructed on the need for admit. 20:21 Patient left the ED. ll2 Signatures: Dispatcher [employer] Red Urena MD MD cha Sanford, Demi ds1 Cecilia Worthy RN RN Lily Fuentes RN RN ll2 Peggy Madden RN RN ll1 Dania Cheek RN RN Corrections: (The following items were deleted from the chart) 18:25 18:00 morphine 2 mg IVP in right antecubital bw bw
--- NOTE | 2020-07-27 17:06 | EDPHYS ---
Physician Documentation [facility] Name: Bandar Mayo Age: 65 yrs Sex: Male : 1955 Arrival Date: 07/27/2020 Time: 15:15 Bed 18 Private MD: ED Physician Red Do HPI: 07/27 15:42 This 65 yrs old Male presents to ER via Wheelchair with complaints of Chest candi Pain. 15:42 The patient or guardian reports chest pain that is located primarily in the anterior candi chest wall, bilaterally. Onset: this morning. The pain radiates to right scapular area. Associated signs and symptoms: Pertinent positives: lightheadedness, shortness of breath. The chest pain is described as a heaviness, sharp. Modifying factors: The symptoms are alleviated by remaining still, the symptoms are aggravated by deep breath. Severity of pain: At its worst the pain was moderate in the emergency department the pain has improved mildly. The patient has not experienced similar symptoms in the past. Historical: - Allergies: 15:30 No Known Allergies; ll1 - PMHx: 15:30 None; ll1 - PSHx: 15:30 None; ll1 - Immunization history:: Flu vaccine is up to date. - Social history:: Smoking status: Patient denies any tobacco usage or history of. - Family history:: not pertinent. ROS: 15:42 Constitutional: Negative for fever, chills, and weight loss, Eyes: Negative for injury, candi pain, redness, and discharge, ENT: Negative for injury, pain, and discharge, Neck: Negative for injury, pain, and swelling, Abdomen/GI: Negative for abdominal pain, nausea, vomiting, diarrhea, and constipation, Back: Negative for injury and pain, : Negative for injury, bleeding, discharge, and swelling, MS/Extremity: Negative for injury and deformity, Skin: Negative for injury, rash, and discoloration, Neuro: Negative for headache, weakness, numbness, tingling, and seizure, Psych: Negative for depression, anxiety, suicide ideation, homicidal ideation, and hallucinations, Allergy/Immunology: Negative for hives, rash, and allergies, Endocrine: Negative for neck swelling, polydipsia, polyuria, polyphagia, and marked weight changes, Hematologic/Lymphatic: Negative for swollen nodes, abnormal bleeding, and unusual bruising. 15:42 Cardiovascular: Positive for chest pain, of the chest. 15:42 Respiratory: Positive for pleurisy, shortness of breath, at rest. 15:42 MS/extremity: Negative for acute changes, injury or acute deformity, abrasion, bite, contusion, decreased range of motion, deformity, ecchymosis, erythema, laceration. Exam: 15:42 Constitutional: This is a well developed, well nourished patient who is awake, alert, candi and in no acute distress. Head/Face: Normocephalic, atraumatic. Eyes: Pupils equal round and reactive to light, extra-ocular motions intact. Lids and lashes normal. Conjunctiva and sclera are non-icteric and not injected. Cornea within normal limits. Periorbital areas with no swelling, redness, or edema. ENT: Nares patent. No nasal discharge, no septal abnormalities noted. Tympanic membranes are normal and external auditory canals are clear. Oropharynx with no redness, swelling, or masses, exudates, or evidence of obstruction, uvula midline. Mucous membranes moist. Neck: Trachea midline, no thyromegaly or masses palpated, and no cervical lymphadenopathy. Supple, full range of motion without nuchal rigidity, or vertebral point tenderness. No Meningismus. Chest/axilla: Normal chest wall appearance and motion. Nontender with no deformity. No lesions are appreciated. Cardiovascular: Regular rate and rhythm with a normal S1 and S2. No gallops, murmurs, or rubs. Normal PMI, no JVD. No pulse deficits. Respiratory: Lungs have equal breath sounds bilaterally, clear to auscultation and percussion. No rales, rhonchi or wheezes noted. No increased work of breathing, no retractions or nasal flaring. Abdomen/GI: Soft, non-tender, with normal bowel sounds. No distension or tympany. No guarding or rebound. No evidence of tenderness throughout. Back: No spinal tenderness. No costovertebral tenderness. Full range of motion. Male : Normal genitalia with no discharge or lesions. Skin: Warm, dry with normal turgor. Normal color with no rashes, no lesions, and no evidence of cellulitis. MS/ Extremity: Pulses equal, no cyanosis. Neurovascular intact. Full, normal range of motion. Neuro: Awake and alert, GCS 15, oriented to person, place, time, and situation. Cranial nerves II-XII grossly intact. Motor strength 5/5 in all extremities. Sensory grossly intact. Cerebellar exam normal. Normal gait. Psych: Awake, alert, with orientation to person, place and time. Behavior, mood, and affect are within normal limits. 17:14 ECG was reviewed by the Attending Physician. candi Vital Signs: 15:28 BP 168 / 96; Pulse 72; Resp 18; Temp 98.2; Pulse Ox 96% on R/A; Pain 10/10; ll1 16:05 BP 139 / 71; Pulse 70; Resp 18; Pulse Ox 98% on R/A; bw 17:05 BP 143 / 74; Pulse 18; Resp 20; Pulse Ox 97% on R/A; bw 18:05 BP 148 / 74; Pulse 67; Resp 20; Pulse Ox 98% ; bw 18:05 BP 142 / 79; Pulse 66; Resp 18; Pulse Ox 99% on R/A; bw 19:07 BP 141 / 77; Pulse 65; Resp 20; Pulse Ox 97% on R/A; bw 19:43 Weight 94.8 kg; ll2 MDM: 15:26 Patient medically screened. candi 15:45 Differential diagnosis: abnormal EKG, acute myocardial infarction, acute pericarditis, candi congestive heart failure cholecystitis, Cholelithiasis costochondritis, esophagitis, herpes zoster, hiatal hernia, myocarditis, pancreatitis, pericarditis, pleurisy, pneumonia, pneumothorax, pulmonary embolus, stable angina, thoracic aortic disection, unstable angina. HEART Score: History: Moderately Suspicious (1), ECG: Non specific repolarization disturbance / LBTB / PM (1), Age: > or = 65 years (2), Risk Factors: > or = 3 Risk factors for atherosclerotic disease (2), [Hypertension] [+ Family HX] [Obesity] Troponin: < or = 1 x Normal Limit (0). The patient was given aspirin in the Emergency Department. The patient's deep vein thrombosis risk score was calculated as follows: Total Score: 0. This patient was found to be at low risk for a deep vein thrombosis by using the Well's assessment criteria. The patient's pulmonary embolism risk score was calculated as follows: Total Score: 0-2 points. This patient was found to be at low risk for a pulmonary embolism by using the Well's assessment criteria. ROLANDA Risk Score: 1 - patient's age is greater or equal to 65 years, 1 - Three or more CAD risk factors, TOTAL SCORE = 2. Data reviewed: vital signs, nurses notes, lab test result(s), EKG, radiologic studies, CT scan, plain films. 07/27 15:41 Order name: Basic Metabolic Panel [facility] 07/27 15:41 Order name: CBC with Diff; Complete Time: 16:59 [facility] 07/27 15:41 Order name: LFT's; Complete Time: 16:59 [facility] 07/27 15:41 Order name: Magnesium; Complete Time: 16:59 [facility] 07/27 15:41 Order name: NT PRO-BNP; Complete Time: 16:59 [facility] 07/27 15:41 Order name: PT-INR; Complete Time: 16:59 [facility] 07/27 15:41 Order name: Troponin (emerg Dept Use Only); Complete Time: 16:59 [facility] 07/27 15:41 Order name: Lipase; Complete Time: 16:59 [facility] 07/27 15:42 Order name: Basic Metabolic Panel; Complete Time: 16:59 [facility] 07/27 17:16 Order name: SARS-COV-2 RT PCR [facility] 07/27 18:17 Order name: Basic Metabolic Panel [facility] 07/27 18:17 Order name: Basic Metabolic Panel [facility] 07/27 18:17 Order name: Lipid Profile [facility] 07/27 15:41 Order name: XRAY Chest (1 view) [facility] 07/27 15:41 Order name: CT Aorta for Dissection [facility] 07/27 18:17 Order name: Echo with Doppler [facility] 07/27 18:17 Order name: Lipid Profile [facility] 07/27 18:17 Order name: Troponin I [facility] 07/27 18:17 Order name: Troponin I [facility] 07/27 18:17 Order name: Troponin I [facility] 07/27 18:17 Order name: CBC with Automated Diff [facility] 07/27 18:17 Order name: CBC with Automated Diff [facility] 07/27 15:41 Order name: EKG; Complete Time: 15:43 [facility] 07/27 15:41 Order name: Cardiac monitoring; Complete Time: 18:26 [facility] 07/27 15:41 Order name: EKG - Nurse/Tech; Complete Time: 18:26 [facility] 07/27 15:41 Order name: IV Saline Lock; Complete Time: 18:26 [facility] 07/27 15:41 Order name: Labs collected and sent; Complete Time: 18:26 [facility] 07/27 15:41 Order name: O2 Per Protocol; Complete Time: 18: [facility] 07/27 15:41 Order name: O2 Sat Monitoring; Complete Time: 18:26 [facility] 07/27 15:42 Order name: Urine Dipstick-Ancillary (obtain specimen); Complete Time: 19:11 [facility] 07/27 18:17 Order name: CONS Physician Consult [facility] 07/27 18:17 Order name: Heart Healthy [facility] 07/27 18:17 Order name: EKG Electrocardiogram [facility] 07/27 18:17 Order name: EKG Electrocardiogram [facility] EC:14 Rate is 66 beats/min. Rhythm is regular. QRS [place] is Normal. AL interval is normal. QRS candi interval is normal. QT interval is normal. No Q waves. T waves are Normal. No ST changes noted. Clinical impression: NSR w/ Non-specific ST/T Changes and No evidence of ischemia. Interpreted by me. Reviewed by me. Administered Medications: 18:00 Drug: Aspirin Chewable Tablet 324 mg Route: PO; bw 19:14 Follow up: Response: No adverse reaction bw 18:00 Drug: morphine 2 mg Route: IVP; Site: right antecubital; bw 19:14 Follow up: Response: No adverse reaction; Marked relief of symptoms bw 18:00 Drug: Zofran (Ondansetron) 4 mg Route: IVP; Site: right antecubital; bw 19:13 Follow up: Response: No adverse reaction bw 18:00 Drug: Lopressor (metoprolol TARTRATE) 50 mg Route: PO; bw 19:13 Follow up: Response: No adverse reaction bw 18:00 Drug: Pepcid 20 mg Route: IVP; Site: right antecubital; bw 19:13 Follow up: Response: No adverse reaction bw 19:13 Follow up: Response: No adverse reaction bw 18:00 Drug: Norvasc 10 mg Route: PO; bw 19:13 Follow up: Response: No adverse reaction bw 19:30 Drug: Lovenox 1 mg/kg Route: Sub-Q; Site: abdomen; ll2 Disposition: 07/27/20 17:05 Hospitalization ordered by Robbie Connolly for Observation. Preliminary diagnosis are Chest pain, unspecified, Essential (primary) hypertension, Dyspnea. - Bed requested for Telemetry/MedSurg (observation). - Status is Observation. ll2 - Condition is Fair. - Problem is new. - Symptoms have improved. Signatures: Dispatcher [employer] EDMS Selam Jaramillo Red Garcia MD MD cha [place], Lacie, RN RN ll2 Peggy Madden RN RN ll1 Dania Cheek RN RN Corrections: (The following items were deleted from the chart) 16:35 15:42 CORONAVIRUS+MR.LAB.BRZ ordered. EDMS EDMS 17:29 17:08 Abdomen Limited+US.RAD.BRZ ordered. [facility] EDMS 18:43 17:05 Hospitalization Ordered by Robbie Connolly MD for Observation. Preliminary bd diagnosis is Chest pain, unspecified; Essential (primary) hypertension; Dyspnea. Bed requested for Telemetry/MedSurg (observation). Status is Observation. Condition is Fair. Problem is new. Symptoms have improved. [facility] 20:21 18:43 07/27/2020 17:05 Hospitalization Ordered by Robbie Connolly MD for Observation. ll2 Preliminary diagnosis is Chest pain, unspecified; Essential (primary) hypertension; Dyspnea. Bed requested for Telemetry/MedSurg (observation). Status is Observation. Condition is Fair. Problem is new. Symptoms have improved. bd
--- NOTE | 2020-07-27 17:21 | RAD REPORT ---
EXAM DESCRIPTION: CT - Angio Aorta For Dissection - 07/27/2020 4:26 pm CLINICAL HISTORY: Chest pain radiating to the back. CHEST PAIN COMPARISON: No comparisons TECHNIQUE: CT angiography of the aorta was performed with MIPs. All CT scans are performed using dose optimization technique as appropriate and may include automated exposure control or mA/KV adjustment according to patient size. FINDINGS: A left aortic arch is present with normal branching pattern of the great vessels.No acute aortic finding is seen such as aneurysm, penetrating ulcer or dissection. The celiac axis, SMA, SONAL and renal arteries are patent. No evidence of pulmonary embolism. The lungs are clear. Diffuse fatty liver is present. Cholecystectomy clips are evident.The spleen, pancreas, adrenal gland s and kidneys are within normal limits for arterial phase imaging. No bowel obstruction, free fluid or abscess.No pathologic enlarged lymphadenopathy identified. Hardware is in place lower lumbar spine with degenerative changes noted. IMPRESSION: No acute aortic finding is demonstrated.No evidence of pulmonary thromboembolism. Diffuse fatty liver.
--- NOTE | 2020-07-27 17:27 | RAD REPORT ---
EXAM DESCRIPTION: RAD - Chest Single View - 07/27/2020 3:52 pm CLINICAL HISTORY: CHEST PAIN Chest pain. COMPARISON: Chest Single View dated 06/07/2018; CHEST PA AND LAT 2 VIEW dated 10/29/2012; CHEST SINGLE VIEW dated 04/25/2012 FINDINGS: Portable technique limits examination quality. The lungs are grossly clear. The heart is upper limit of normal in size. No displaced fractures.
[2020-07-27] MEDS ORDERED: MORPHINE 2 MG/ML SYR ONE (17:56)
[2020-07-27] MEDS ORDERED: METOPROLOL TAR 50 MG TAB ONE (17:56)
[2020-07-27] MEDS ORDERED: ASPIRIN 81 MG CHEWABLE TABLET ONE (17:56)
[2020-07-27] MEDS ORDERED: AMLODIPINE 10 MG TAB ONE (17:57)
[2020-07-27] MEDS ORDERED: FAMOTIDINE 20 MG/2 ML VIAL IV ONE (17:57)
[2020-07-27] MEDS ORDERED: ONDANSETRON 4 MG/2 ML VIAL ONE (17:57)
[2020-07-27] MEDS ORDERED: ENOXAPARIN 100 MG/ML SYR SQ ONE (17:57)
[2020-07-27] MEDS ORDERED: ALPRAZOLAM 0.25 MG TABLET PO PRN (18:14)
[2020-07-27] MEDS ORDERED: ACETAMINOPHEN 500 MG TAB PO PRN (18:14)
[2020-07-27] MEDS ORDERED: MORPHINE 4 MG/ML SYR IV PRN (18:14)
[2020-07-27] MEDS: ENOXAPARIN 40 MG/0.4 ML SQ SCH (20:00)
[2020-07-27] MEDS: METOPROLOL TAR 25 MG TAB PO SCH ×2 (20:51→21:00)
[2020-07-27 22:15] VITALS: BMI 31.6
[2020-07-28 04:57] LABS: Absolute Lymphocytes (CBC) 2.7 K/uL (0.7-4.9); Basophils % 0.7 % (0-1.3); Hematocrit 45.4 % (39.6-49.0); Lymphocytes % 30.5 % (15.3-44.8); MPV 9.4 fL (7.6-11.3); RBC Red Blood Cell Count 4.77 M/uL (4.33-5.43)
[2020-07-28 05:25] LABS: BUN Blood Urea Nitrogen 11 mg/dL (7-18); Bicarbonate 25 mmol/L (21-32); Glucose Level 79 mg/dL (74-106); HDL Cholesterol 81 mg/dL (40-60); LDL Cholesterol, Calculated 77 (<130); Sodium Level 139 mmol/L (136-145); Troponin I < 0.02 ng/mL (0.0-0.045)
--- NOTE | 2020-07-28 07:10 | P.HP ---
Certification for Inpatient Patient admitted to: Observation With expected LOS: <2 Midnights Patient will require the following post-hospital care: None Practitioner: I am a practitioner with admitting privileges, knowledge of patient current condition, hospital course, and medical plan of care. Services: Services provided to patient in accordance with Admission requirements found in Title 42 Section 412.3 of the Code of Federal Regulations Patient History Date of Service: 07/27/20 Reason for admission: Chest pain rule out acute coronary syndrome History of Present Illness: Patient is a 65-year-old gentleman who came to the hospital with chest discomfort. Pain was mainly in the sternal region. It was more towards the right side of the chest. Patient came to the hospital for further evaluation. In the emergency room, patient had CT scan of the chest that was negative. There was no pulmonary embolism were no other abnormalities. Patient also has some lab testing that was unremarkable. Serial troponins and EKGs have been negative. Patient still having some pressure to the right side of the chest. Patient was also having some diaphoresis. Patient will be admitted to the hospital and will be worked up. Allergies No Known Allergies Allergy (Unverified 04/25/12 23:14) Home Medications: NK [No Home Meds] 07/27/20 - Past Medical/Surgical History Has patient received pneumonia vaccine in the past: Yes Diabetic: No -: Hypertension -: Carpal Tunnel Surgery both hands -: Bilateral elbow surgery -: Bilateral Shoulder Tear Surgery -: Cholecystectomy -: Appendectomy -: Bilateral knee surgery - Family History Father Notes: lung cancer - Social History Smoking Status: Former smoker Alcohol use: Yes CD- Drugs: No Caffeine use: Yes Place of Residence: Home Review of Systems 10-point ROS is otherwise unremarkable Physical Examination - Vital Signs Temperature: 97.3 F Blood Pressure: 114/55 Pulse: 56 Respirations: 20 Pulse Ox (%): 96 - Physical Exam General: Alert, In no apparent distress, Oriented x3 HEENT: Atraumatic, PERRLA, Mucous membr. moist/pink, EOMI, Sclerae nonicteric Neck: Supple, 2+ carotid pulse no bruit, No LAD, Without JVD or thyroid abn ormality Respiratory: Clear to auscultation bilaterally, Normal air movement Cardiovascular: Regular rate/rhythm, Normal S1 S2, No murmurs Gastrointestinal: Normal bowel sounds, Soft and benign, Non-distended, No tenderness Musculoskeletal: No clubbing, No swelling, No tenderness Integumentary: No rashes Neurological: Normal gait, Normal speech, Normal strength at 5/5 x4 extr, Normal tone, Sensation intact, Cranial nerves 3-12 intact Lymphatics: No axilla or inguinal lymphadenopathy - Studies Laboratory Data (last 24 hrs) 07/27/20 16:05: PT 11.1, INR 0.97 07/27/20 16:05: WBC 7.60, Hgb 16.0, Hct 47.6, Plt Count 225 07/27/20 16:05: Sodium 141, Potassium 3.7, BUN 11, Creatinine 0.75, Glucose 93, Magnesium 2.3, Total Bilirubin 0.4, AST 45 H, ALT 109 H, Alkaline Phosphatase 114, Lipase 237 Assessment & Plan - Problems (Diagnosis) (1) Chest pain, rule out acute myocardial infarction Current Visit: Yes Status: Acute (2) History of alcohol abuse Current Visit: Yes Status: Acute (3) Hypertension Onset Date: 06/08/18 Current Visit: No Status: Chronic Qualifiers: Hypertension type: essential hypertension Qualified Code(s): I10 - Essential (primary) hypertension - Plan 1. Serial troponins and EKG 2. Cardiology consultation 3. Echocardiogram and stress test 4. Anti-platelet therapy, anti coagulation, beta-lacy, statin, and O2 as needed 5. IV morphine for pain 6. Nitro p.r.n. 7. GI and DVT prophylaxis Discharge Plan: Home Plan to discharge in: 24 Hours - Advance Directives Does patient have a Living Will: Yes Does patient have a Durable POA for Healthcare: Yes - Code Status/Comfort Care Code Status Assessed: Yes Code Status: Full Code Critical Care: No Time Spent Managing PTS Care (In Minutes): 45
[2020-07-28] MEDS: ENOXAPARIN 40 MG/0.4 ML SQ SCH (08:35)
[2020-07-28] MEDS: METOPROLOL TAR 25 MG TAB PO SCH (08:36)
[2020-07-28] MEDS ORDERED: ASPIRIN EC 81 MG TAB PO SCH (09:00)
[2020-07-28] MEDS ORDERED: REGADENOSON 0.4 MG/5 ML SYR IV ONE (09:16)
--- NOTE | 2020-07-28 10:57 | CON ---
Date of Consultation: 07/28/2020 Reason For Consultation: Atypical chest pain. History Of Present Illness: Mr. Mayo is a 65-year-old white male. He is a patient of Dr. Michael Mccain. He is actually pretty healthy. Does not have any past medical history of any significance. He came in with right-sided chest pressure fullness that radiated to the right shoulder and the rig ht back without any nausea, vomiting, diaphoresis, PND, orthopnea, pedal edema, palpitations, or sync ope. Symptoms are sometimes exertional, sometimes not exertional. Denied any fever or chills or cou gh. In May 2018, he underwent a normal echocardiogram and a normal stress test. He is asymptoma tic right now. Past Medical History: None. Allergies: NONE. Review of Systems: Negative. Social History: Negative. Family History: Negative. Medications: At home none. Physical Examination: Vital Signs: Stable, afebrile. HEENT: Negative. Neck: Supple with no bruit. Chest: Clear to auscultation and percussion. Cardiac: revealed a regular rhythm and rate. No murmurs, gallops, or rubs. Abdomen: Benign. Extremities: Reveal no clubbing, cyanosis or edema. Diagnostic Data: All within normal limit. Impression And Plan: Atypical chest pain. A stress test has already been ordered by Dr. Connolly. We w ill see what that shows before making further decisions. We will make a plan for continuing his pres ent regimen now and we will hold his Lovenox after tonight. Hopefully, the stress test will be teodora l, if not, we will do a catheterization in the morning. SYDNIE/RAN Voice ID: [id number] Report ID: [id number]
[2020-07-28 12:06] VITALS: BP 100/55; TEMP 97.9
[2020-07-28 12:18] VITALS: O2SAT 100
--- NOTE | 2020-07-28 13:17 | RAD REPORT ---
EXAM DESCRIPTION: NM - Rest Stress Cardiac Imaging - 07/28/2020 1:01 pm CLINICAL HISTORY: Chest pain COMPARISON: May 2018 TECHNIQUE: The patient was administered 10.9 mCi of Tc 99m Sestamibi prior to resting SPECT imaging of the heart. The patient was then administered 31.6 mCi of Tc 99m Sestamibi following exercise or ph armacologic stress. Multiplanar SPECT images were reviewed. FINDINGS: The end diastolic volume is 120 ml, the end systolic volume is 51 ml, and the ejection fra ction is 58 %. End-diastolic volume is increased slightly from comparison. Ejection fraction remains stable. No stress-induced ischemic changes identifiable. Anteroseptal wall near the apex shows small mildly a noa of diminished activity not clearly different between the rest and stress sequencing. This could b e scarring, soft tissue attenuation artifact or a combination. No other areas of fixed defects. IMPRESSION: No stress-induced ischemic change identifiable. End-diastolic volume is 120 mL, increase from 99 mL seen on the 2019 study. Ejection fraction is 58% similar to the prior examination.
[2020-07-28] MEDS ORDERED: METHYLPREDNISOLONE 125 MG INJ IV ONE (14:17)
--- NOTE | 2020-07-29 05:04 | EKG ---
Test Date: 2020-07-28 Test Time: 07:25:20 Electrical Laboratory Technician: KOFI MEASUREMENT RESULTS: Intervals: Rate: 51 SC: 230 QRSD: 98 QT: 424 QTc: 390 [place]: P: 39 SC: 230 QRS: -24 T: 20 INTERPRETIVE STATEMENTS: Sinus bradycardia with 1st degree AV block Otherwise normal ECG Compared to ECG 07/27/2020 16:13:54 First degree AV block now present Sinus rhythm no longer present Incomplete right bundle-branch block no longer present Electronically Signed On 07-29-20 05:03:41 APPRENTICE by Jose Jennings
--- NOTE | 2020-07-29 05:04 | EKG ---
Test Date: 2020-07-28 Test Time: 07:27:14 Sheather: KOFI MEASUREMENT RESULTS: Intervals: Rate: 0 ND: QRSD: 0 QT: 0 QTc: 0 [place]: P: ND: QRS: 0 T: 0 INTERPRETIVE STATEMENTS: No QRS complexes found, no ECG analysis possible Compared to ECG 07/28/2020 07:25:20 Sinus bradycardia no longer present First degree AV block no longer present Electronically Signed On 07-29-20 05:03:40 PROOF OPERATOR by Jose Jennings
--- NOTE | 2020-07-29 05:05 | EKG ---
Test Date: 2020-07-27 Test Time: 16:13:54 Crime Analyst: TAWANA MEASUREMENT RESULTS: Intervals: Rate: 66 ND: 206 QRSD: 100 QT: 392 QTc: 410 [place]: P: 48 ND: 206 QRS: -23 T: 30 INTERPRETIVE STATEMENTS: Normal sinus rhythm Incomplete right bundle branch block Borderline ECG Compared to ECG 06/07/2018 11:11:08 Incomplete right bundle-branch block now present First degree AV block no longer present Electronically Signed On 07-29-20 05:03:51 HEATER PLANER OPERATOR by Jose Jennings
--- NOTE | 2020-07-29 08:44 | ECHO ---
HEIGHT: 5 ft 8 in WEIGHT: 208 lb 3.2 oz DATE OF STUDY: 07/28/[address]: Robbie Connolly MD 2-DIMENSIONAL: YES M.MODE: YES DOPPLER: YES COLOR FLOW: YES TDS: YES PORTABLE: NO DEFINITY: NO BUBBLE STUDY: NO DIAGNOSIS: CHEST PAIN, RULE OUT ACS CARDIAC HISTORY: CATHERIZATION: NO SURGERY: NO PROSTHETIC VALVE: NO PACEMAKER: NO MEASUREMENTS (cm) DIASTOLIC (NORMALS) SYSTOLIC (NORMALS) IVSd (0.6-1.2) LA Diam (1.9-4.0) LVEF 55-60 % LVIDd (3.5-5.7) LVIDs (2.0-3.5) %FS % LVPWd (0.6-1.2) Ao Diam (2.0-3.7) 2 DIMENSIONAL ASSESSMENT: RIGHT ATRIUM: NORMAL LEFT ATRIUM: NORMAL RIGHT VENTRICLE: NORMAL LEFT VENTRICLE: NORMAL TRICUSPID VALVE: NORMAL MITRAL VALVE: NORMAL PULMONIC VALVE: NORMAL AORTIC VALVE: NORMAL PERICARDIAL EFFUSION: NONE AORTIC ROOT: NORMAL LEFT VENTRICULAR WALL MOTION: NORMAL DOPPLER/COLOR FLOW: NORMAL COMMENTS: TECHNICALLY DIFFICULT STUDY. NORMAL LEFT VENTRICULAR SIZE AND FUNCTION. LEFT VENTRICULAR EJECTION FRACTION 55-60%. NO WALL MOTION ABNORMALITY. TECHNOLOGIST: Beto MOON
--- NOTE | 2020-07-29 09:11 | TREADPHA ---
DX: CHEST PAIN Date of Study: 07/28/2020 Ht: 5' 8 " Wt: 208 lb 3.2 oz Consulting Physician: DENAE MEDICATIONS: TYLENOL, ASPIRIN, LOVENOX, LOPRESSOR, XANAX HISTORY: PHYSICIAL EXAMINATION: RESTING B.P.: 131/86 RESTING H.R.: 54 RESTING EKG: SINUS RHYTHM PROTOCOL: LEXISCAN EXERCISE TIME: 3:30 B.P. AT PEAK STRESS: 125/80 IMPRESSION: SEE REPORT.
--- NOTE | 2020-08-18 00:36 | P.DS ---
Discharge Date: 07/28/20 Disposition: ROUTINE DISCHARGE Discharge Condition: GOOD Reason for Admission: Chest pain rule out acute coronary syndrome - Problems (1) Chest pain, rule out acute myocardial infarction Status: Acute (2) History of alcohol abuse Status: Acute (3) Hypertension Onset Date: 06/08/18 Status: Chronic Qualifiers: Hypertension type: essential hypertension Qualified Code(s): I10 - Essential (primary) hypertension Brief History of Present Illness: Patient is a 65-year-old gentleman who came to the hospital with chest discomfort. Pain was mainly in the sternal region. It was more towards the right side of the chest. Patient came to the hospital for further evaluation. In the emergency room, patient had CT scan of the chest that was negative. There was no pulmonary embolism were no other abnormalities. Patient also has some lab testing that was unremarkable. Serial troponins and EKGs have been negative. Patient still having some pressure to the right side of the chest. Patient was also having some diaphoresis. Patient will be admitted to the hospital and will be worked up. Hospital Course: Patient had a stress test and was ruled out for acute coronary syndrome. Donovan jessica's stress test was unremarkable. Patient's echocardiogram was unremarkable. At this time, patient is stable for discharge home. Vital Signs/Physical Exam: Temp Pulse Resp BP Pulse Ox 97.9 F 65 20 100/55 L 95 07/28/20 12:00 07/28/20 12:00 07/28/20 12:00 07/28/20 12:00 07/28/20 12:00 General: Alert, In no apparent distress, Oriented x3 Laboratory Data at Discharge: WBC 9.00 K/uL (4.3-10.9) D 07/28/20 03:25 Hgb 15.1 g/dL (13.6-17.9) 07/28/20 03:25 Hct 45.4 % (39.6-49.0) 07/28/20 03:25 Plt Count 218 K/uL (152-406) 07/28/20 03:25 PT 11.1 SECONDS (9.5-12.5) 07/27/20 16:05 INR 0.97 07/27/20 16:05 Sodium 139 mmol/L (136-145) 07/28/20 03:39 Potassium 4.0 mmol/L (3.5-5.1) 07/28/20 03:39 BUN 11 mg/dL (7-18) 07/28/20 03:39 Creatinine 0.75 mg/dL (0.55-1.3) 07/28/20 03:39 Glucose 79 mg/dL (74-106) 07/28/20 03:39 Magnesium 2.3 mg/dL (1.8-2.4) 07/27/20 16:05 Total Bilirubin 0.4 mg/dL (0.2-1.0) 07/27/20 16:05 AST 45 U/L (15-37) H 07/27/20 16:05 ALT 109 U/L (12-78) H 07/27/20 16:05 Alkaline Phosphatase 114 U/L (45-117) 07/27/20 16:05 Troponin I < 0.02 ng/mL (0.0-0.045) 07/28/20 03:39 Triglycerides Cancelled 07/28/20 05:00 Cholesterol Cancelled 07/28/20 05:00 HDL Cholesterol Cancelled 07/28/20 05:00 Cholesterol/HDL Ratio Cancelled 07/28/20 05:00 Lipase 237 U/L (73-393) 07/27/20 16:05 Home Medications: Aspirin [Aspirin EC 81 MG] 81 mg PO DAILY #30 tablet. 07/28/20 Codeine/APAP [Tylenol W/Codeine #3 tab] 1 tab PO Q6HP PRN #30 tab 07/28/20 New Medications: Aspirin [Aspirin EC 81 MG] 81 mg PO DAILY #30 tablet. Codeine/APAP [Tylenol W/Codeine #3 tab] 1 tab PO Q6HP PRN #30 tab PRN Reason: Pain Physician Discharge Instructions: OK TO DC IV AND DC HOME FOLLOW-UP WITH PRIMARY CARE PROVIDER IN 1-2 WEEKS FOLLOW-UP WITH CARDIOLOGY IN 1-2 weeks if symptoms do not resolve RETURN TO THE ER IF symptoms worsen CALL or TEXT DR. CHAN AT [phone] IF ANY QUESTIONS REGARDING HOSPITAL STAY. PLEASE CALL THE FLOOR AT [phone] IF ANY MEDICATION OR NURSING QUESTIONS. Diet: AHA Activity: Fall precautions Followup: Jose Jennings MD [ACTIVE - CAN ADMIT] - 1-2 Weeks (Call for appointment) Unknown,U [Primary Care Provider] - 1-2 Weeks (call for appointment) Time spent managing pt's care (in minutes): 35
== END 2020-07-28 15:45 | disposition home or self-care (01) ==
LOC: ER 15:14 → ERHOLD 18:14 → 4TH 19:51
PROVIDERS: ADMIT Hospitalist; ATTEND Hospitalist
DX: R07.89 Other chest pain (principal); I10 Essential (primary) hypertension; Z87.891 Personal history of nicotine dependence; Z20.822 Contact with and (suspected) exposure to COVID-19
CPT/HCPCS: 93005 ×2; 93306; 85025 ×2; 80048 ×2; 36415; 83735; 85610; 80061; 82565; 80076; 84484 ×3; 83690; 83880; 71275; 74175; 71045; 78452; 96375; 96372; 96374; 99285; U0003; Q9967; J1650; J2270; J2785; J2930; J2405; A9500; G0378 ×3; 93017

== ENCOUNTER 2022-07-29 08:56 | Emergency (ER) | payer OTHER ==
--- OUTSIDE RECORDS SUMMARY | 2022-07-29 09:04 | XMS REPORT | Continuity of Care Document ---
:1955 Author Organization [facility] t Address [address] [facility] [address] [place] [address] Care Team Providers Name Role Phone Pcp, Patient Does Not Have A Primary Care Physician [id number] Earl Mccain Attending Clinician Unavailable KATHIA DE LA VEGA Attending Clinician Unavailable Eugenio FINLEY, Kathia Attending Clinician Payers Payer Name Policy Type Policy Number Effective Date Expiration Date S eun MEDICARE PART A [id number] 2018 \T\ B 00:00:00 COMMERCIAL [id number] 2021 NON-CONTRACT 00:00:00 GENERIC MEDICARE NOVITAS MB [id number] [facility] [place] [id number] [facility] - [facility] [place] [id number] [facility] - [facility] MEDICARE NOVITAS MB [id number] [facility] Problems Condition Condition Condition Status Onset Resolution Last Treating Co mments Source Name Details Category Date Date Treatment Clinician Date [id number] Primary Problem Comm on osteoarthr Spirit itis, - [facility] right [facility] shoulder [facility] [id number] Tear of Problem Commo n right Spirit rotator - [facility] cuff[facility] extent, Center unspecifie d whether traumatic Incomplete Problem Co mmon tear of Spirit right - [facility] rotator [facility] cuff, [facility] whether Center traumatic [id number] Alcohol Problem Common use Spirit disorder, - [facility] mild, [facility] [id number] Fatigue, Problem Commo n unspecifie Spirit d type - [facility] [id number] [place] [address] heavy Spirit tobacco - [facility] smoker [facility] [id number] Fatty Problem Common liver, Spirit alcoholic - [facility] [id number] Mixed Problem Common hyperlipid Spirit emia - [facility] [id number] HTN Problem Common (hypertens Spirit ion), - [facility] benign [facility] [id number] LEONA Problem Common (obstructi Spirit ve sleep - CHI apnea) [facility] [id number] Primary Problem Comm on osteoarthr Spirit itis of - [facility] left [facility] [id number] Adult BMI Problem Com mon 31.0-31.9 Spirit kg/sq m - [facility] [id number] Diverticul Problem C ommon 078247 osis large Spirit intestine - [facility] w/o perforatio [facility] n or Medical abscess Center w/bleeding [id number] Repetitive Problem Co mmon intrusions Spirit of sleep - [facility] [id number] Vitamin D Problem Comm on deficiency Spirit disease [facility] [id number] Other Problem Common chronic Spirit pain - [facility] [id number] 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 tear Center extent No known No known Disease Unive rs active active ity of problems problems [facility] Allergies, Adverse Reactions, Alerts This patient has no known allergies or adverse reactions. Social History Social Habit Start Date Stop Date Quantity Comments Source History of [facility] - Tobacco Use [facility] Sex Assigned At Common Sp kami - [facility] Exposure to 2021-12-15 2021-12-25 Yes University of SARS-CoV-2 00:00:00 17:05:00 [facility] (event) Branch Tobacco use and 2021-12-25 2021-12-25 Smokeless tobacco Un iversity of exposure 00:00:00 00:00:00 non-user [facility] Smoking Status Start Date Stop Date Source Former Smoker 2022-06-10 00:00:00 2022-06-10 00:00:00 Common S pirit - [facility] Medications Ordered Filled Start Stop Current Ordering Indication Dosage Frequency Signature Comments Components Source Medication Medication Date Date Medication? Clinician (SIG) Name Name Ralph Rosas 0 No 40mg Common (Triamcinol (Triamcinol 8-25 S pirit one) one) 00:00: - [facility] Bupivicaine Bupivicaine 2021-0 No 5mg [facility] Spirit 00:00: - [facility] Ralph Rosas 2021-0 No 40mg Common (Triamcinol (Triamcinol 8-25 S pirit one) one) 00:00: - [facility] Bupivicaine Bupivicaine 2021-0 No 5mg [facility] [place] 8[facility]25 Spirit 00:00: - [facility] Ralph Rosas 2021-0 No 40mg Common (Triamcinol (Triamcinol 8-25 S pirit one) one) 00:00: - [facility] Bupivicaine Bupivicaine 2021-0 No 5mg [facility] 8[facility]25 Spirit 00:00: - [facility] 00 [facility] Ralph Rosas 2021-0 No 40mg Common (Triamcinol (Triamcinol 8-25 S pirit one) one) 00:00: - [facility] Bupivicaine Bupivicaine 2-0 No 5mg [facility] [place] 8-25 Spirit 00:00: - [facility] 00 [facility] Ralph Rosas 2021-0 No 40mg Common (Triamcinol (Triamcinol 8-25 S pirit one) one) 00:00: - [facility] Bupivicaine Bupivicaine 2-0 No 5mg [facility] [place] 8-25 Spirit 00:00: - [facility] Ralph Rosas 2021-0 No 40mg Common (Triamcinol (Triamcinol 8-25 S pirit one) one) 00:00: - CHI 00 [facility] Bupivicaine Bupivicaine 2021-0 No 5mg [facility] [place] 8-25 Spirit 00:00: - [facility] Kenalog Kenalog 2021-0 No 40mg Common (Triamcinol (Triamcinol 8-25 S pirit one) one) 00:00: - CHI 00 [facility] Bupivicaine Bupivicaine 2021-0 No 5mg [facility] [place] 8-25 Spirit 00:00: - [facility] 00 [facility] bromphenira 2021-0 Yes [id number] 5mL Take 5 mL Univers mine-pseudo 8-06 by mouth 4 it y of ephedrine-D 00:00: ([place] (BROMF[place] 00 times Medical DM) 2-30-10 daily as Bran ch mg/5 mL needed for syrup Congestion /Allergies . nirmatrelvi 0 Yes [id number] 3{tbl} Take 3 Univers r-ritonavir 8-06 tablets by it y of (PAXLOVID, 00:00: mouth in [place] as EUA,) 150 00 the Medical mg x 2- 100 morning Branc h mg tablet and 3 tablets in the evening. Kenalog Kenalog 0 No 40mg Common (Triamcinol (Triamcinol 6-06 S pirit one) one) 00:00: - [facility] Bupivicaine Bupivicaine 2021-0 No 2.5mg [facility] [place] [facility] [place] 6-06 Spirit 00:00: - [facility] Kenalog Kenalog 2021-0 No 40mg Common (Triamcinol (Triamcinol 6-06 S pirit one) one) 00:00: - [facility]I 00 [facility] Bupivicaine Bupivicaine 2021-0 No 2.5mg [facility] [place] 6-06 Spirit 00:00: - [facility] Kenalog Kenalog 2021-0 No 40mg Common (Triamcinol (Triamcinol 6-06 S pirit one) one) 00:00: - [facility] Bupivicaine Bupivicaine 2021-0 No 2.5mg [facility] [place] 6-06 Spirit 00:00: - [facility]I 00 [facility] Kenalog Kenalog 2-0 No 40mg Common (Triamcinol (Triamcinol 6-06 S pirit one) one) 00:00: - CHI 00 [facility] Bupivicaine Bupivicaine 2-0 No 2.5mg [facility] [place] 6-06 Spirit 00:00: - [facility]I 00 [facility] Kenalog Kenalog 2-0 No 40mg Common (Triamcinol (Triamcinol 6-06 S pirit one) one) 00:00: - [facility]I 00 [facility] Bupivicaine Bupivicaine 2-0 No 2.5mg [facility] [place] [facility] [place] 6-06 Spirit 00:00: - [facility]I 00 [facility] Kenalog Kenalog 2-0 No 40mg Common (Triamcinol (Triamcinol 6-06 S pirit one) one) 00:00: - [facility]I 00 [facility] Bupivicaine Bupivicaine 2-0 No 2.5mg [facility] [place] 6-06 Spirit 00:00: - [facility]I 00 [facility] Kenalog Kenalog 2-0 No 40mg Common (Triamcinol (Triamcinol 6-06 S pirit one) one) 00:00: - CHI 00 [facility] Bupivicaine Bupivicaine 2-0 No 2.5mg [facility] [place] 6-06 Spirit 00:00: - [facility]I 00 [facility] Kenalog Kenalog 2-0 No 40mg Common (Triamcinol (Triamcinol 6-06 S pirit one) one) 00:00: - [facility]I 00 [facility] Bupivicaine Bupivicaine 2-0 No 2.5mg [facility] [place] [facility] [place] 6-06 Spirit 00:00: - [facility]I 00 [facility] Kenalog Kenalog 2-0 No 40mg Common (Triamcinol (Triamcinol 6-06 S pirit one) one) 00:00: - [facility]I 00 [facility] Bupivicaine Bupivicaine 2-0 No 2.5mg [facility] [place] 6-06 Spirit 00:00: - [facility]I 00 [facility] Kenalog Kenalog 2021-0 No 40mg Common (Triamcinol (Triamcinol 6-06 S pirit one) one) 00:00: - [facility]I 00 [facility] Bupivicaine Bupivicaine 2021-0 No 2.5mg [facility] [place] [facility] [place] 6- Spirit 00:00: - [facility]I 00 [facility] Kenalog Kenalog 2021-0 No 40mg Common (Triamcinol (Triamcinol 6-06 S pirit one) one) 00:00: - [facility]I 00 [facility] Bupivicaine Bupivicaine 2021-0 No 2.5mg [facility] [place] [facility] [place] 6- Spirit 00:00: - [facility]I 00 [facility] Bupivicaine Bupivicaine 2020-0 No 2.5mg [facility] [place] [facility] [place] - Spirit 00:00: - [facility]I 00 [facility] Alexanderalog Kenalog 2020-0 No 40mg Common (Triamcinol (Triamcinol 1-21 S pirit one) one) 00:00: - CHI 00 [facility] Bupivicaine Bupivicaine 2020-0 No 2.5mg [facility] [place] - Spirit 00:00: - [facility]I 00 [facility] Alexanderalog Kenalog 2020-0 No 40mg Common (Triamcinol (Triamcinol 1-21 S pirit one) one) 00:00: - CHI 00 [facility] Bupivicaine Bupivicaine 2020-0 No 2.5mg [facility] [place] [facility] [place] -21 Spirit 00:00: - [facility]I 00 [facility] Kenalog Kenalog 2020-0 No 40mg Common (Triamcinol (Triamcinol 1-21 S pirit one) one) 00:00: - [facility]I 00 [facility] Bupivicaine Bupivicaine 2020-0 No 2.5mg [facility] [place] 1-21 Spirit 00:00: - [facility] 00 [facility] Kenalog Kenalog 2020-0 No 40mg Common (Triamcinol (Triamcinol 1-21 S pirit one) one) 00:00: - CHI 00 [facility] Bupivicaine Bupivicaine 2020-0 No 2.5mg [facility] [place] 1-21 Spirit 00:00: - [facility]I 00 [facility] Kenalog Kenalog 2020-0 No 40mg Common (Triamcinol (Triamcinol 1-21 S pirit one) one) 00:00: - CHI 00 [facility] Bupivicaine Bupivicaine 2020-0 No 2.5mg [facility] [place] 1-21 Spirit 00:00: - [facility]I 00 [facility] Kenalog Kenalog 2020-0 No 40mg Common (Triamcinol (Triamcinol 1-21 S pirit one) one) 00:00: - CHI 00 [facility] Bupivicaine Bupivicaine 2020-0 No 2.5mg [facility] [place] [facility] [place] 1-21 Spirit 00:00: - [facility]I 00 [facility] Kenalog Kenalog 2020-0 No 40mg Common (Triamcinol (Triamcinol 1-21 S pirit one) one) 00:00: - CHI 00 [facility] Bupivicaine Bupivicaine 2020-0 No 2.5mg [facility] [place] 1-21 Spirit 00:00: - [facility]I 00 [facility] Kenalog Kenalog 2020-0 No 40mg Common (Triamcinol (Triamcinol 1-21 S pirit one) one) 00:00: - CHI 00 [facility] Bupivicaine Bupivicaine 2020-0 No 2.5mg [facility] [place] [facility] [place] 1-21 Spirit 00:00: - [facility]I 00 [facility] Kenalog Kenalog 2020-0 No 40mg Common (Triamcinol (Triamcinol 1-21 S pirit one) one) 00:00: - [facility]I 00 [facility] Bupivicaine Bupivicaine 2020-0 No 2.5mg [facility] [place] 1-21 Spirit 00:00: - [facility] 00 [facility] Kenalog Kenalog 2020-0 No 40mg Common (Triamcinol (Triamcinol 1-21 S pirit one) one) 00:00: - [facility]I 00 [facility] Bupivicaine Bupivicaine 2020-0 No 2.5mg [facility] [place] [facility] [place] 1-21 Spirit 00:00: - [facility]I 00 [facility] Kenalog Kenalog 2020-0 No 40mg Common (Triamcinol (Triamcinol 1-21 S pirit one) one) 00:00: - [facility]I 00 [facility] Bupivicaine Bupivicaine 2020-0 No 5mL [facility] [place] 6-29 Spirit 00:00: - [facility] 00 [facility] Kenalog Kenalog 2020-0 No 40mg Common (Triamcinol (Triamcinol 6-29 S pirit one) one) 00:00: - [facility]I 00 [facility] Bupivicaine Bupivicaine 2020-0 No 5mL [facility] [place] [facility] [place] 6-29 Spirit 00:00: - [facility] 00 [facility] Kenalog Kenalog 2020-0 No 40mg Common (Triamcinol (Triamcinol 6-29 S pirit one) one) 00:00: - [facility]I 00 [facility] Bupivicaine Bupivicaine 2020-0 No 5mL [facility] [place] [facility] [place] 6-29 Spirit 00:00: - [facility]I 00 [facility] Kenalog Kenalog 2020-0 No 40mg Common (Triamcinol (Triamcinol 6-29 S pirit one) one) 00:00: - [facility]I 00 [facility] Bupivicaine Bupivicaine 2020-0 No 5mL [facility] [place] 6-29 Spirit 00:00: - [facility]I 00 [facility] Kenalog Kenalog 2020-0 No 40mg Common (Triamcinol (Triamcinol 6-29 S pirit one) one) 00:00: - [facility]I 00 [facility] Bupivicaine Bupivicaine 2020-0 No 5mL [facility] [place] [facility] [place] 6-29 Spirit 00:00: - [facility]I 00 [facility] Kenalog Kenalog 2020-0 No 40mg Common (Triamcinol (Triamcinol 6-29 S pirit one) one) 00:00: - [facility]I 00 [facility] Bupivicaine Bupivicaine 2020-0 No 5mL [facility] [place] [facility] [place] 6-29 Spirit 00:00: - [facility]I 00 [facility] Kenalog Kenalog 2020-0 No 40mg Common (Triamcinol (Triamcinol 6-29 S pirit one) one) 00:00: - CHI 00 [facility] Bupivicaine Bupivicaine 2020-0 No 5mL [facility] [place] [facility] [place] 6-29 Spirit 00:00: - [facility]I 00 [facility] Kenalog Kenalog 2020-0 No 40mg Common (Triamcinol (Triamcinol 6-29 S pirit one) one) 00:00: - [facility]I 00 [facility] Bupivicaine Bupivicaine 2020-0 No 5mL [facility] [place] [facility] [place] 6-29 Spirit 00:00: - [facility]I 00 [facility] Kenalog Kenalog 2020-0 No 40mg Common (Triamcinol (Triamcinol 6-29 S pirit one) one) 00:00: - [facility]I 00 [facility] Bupivicaine Bupivicaine 2020-0 No 5mL [facility] [place] [facility] [place] 6-29 Spirit 00:00: - [facility]I 00 [facility] Kenalog Kenalog 2020-0 No 40mg Common (Triamcinol (Triamcinol 6-29 S pirit one) one) 00:00: - CHI 00 [facility] Bupivicaine Bupivicaine 2020-0 No 5mL [facility] [place] [facility] [place] 6-29 Spirit 00:00: - [facility]I 00 [facility] Kenalog Kenalog 2020-0 No 40mg Common (Triamcinol (Triamcinol 6-29 S pirit one) one) 00:00: - [facility]I 00 [facility] Bupivicaine Bupivicaine 2020-0 No 5mL [facility] [place] 6-29 Spirit 00:00: - [facility]I 00 [facility] Kenalog Kenalog 2020-0 No 40mg Common (Triamcinol (Triamcinol 6-29 S pirit one) one) 00:00: - CHI 00 [facility] Vitamin D Vitamin D Yes Harinder 1 tablet Common Zaman [facility] Magdalena Root Magdalena Root Yes Harinder as Common Zaman directed [facility] Tumersaid Tumersaid Yes Harinder not Co mmon Zaman defined [facility] Glucosamine Glucosamine Yes Harinder not Common Zaman defined [facility] Magdalena Root Magdalena Root No Magdalena 550 MG 550 MG Root 550 MG Vitamin D Vitamin D No 1{table QD Vitamin D 2000 UNIT 2000 UNIT t} 2000 UNIT Tumersaid Tumersaid No Tumersaid Zinc Zinc No Zinc Vitamin D Vitamin D No 1{table QD Vitamin D 2000 UNIT 1999 UNIT t} 1999 UNIT Magdalena Root Magdalena Root No Magdalena 550 MG 550 MG Root 550 MG Glucosamine Glucosamine No Glucosamin e Vitamin D Vitamin D No 1{table QD Vitamin D 2000 UNIT 1999 UNIT t} 2000 UNIT Tumersaid Tumersaid No Tumersaid Zinc Zinc No Zinc Glucosamine Glucosamine No Glucosamin e Magdalena Root Magdalena Root No Magdalena 550 MG 550 MG Root 550 MG Vitamin D Vitamin D No 1{table QD Vitamin D 2000 UNIT 1999 UNIT t} 2000 UNIT Tumersaid Tumersaid No Tumersaid Zinc Zinc No Zinc Glucosamine Glucosamine No Glucosamin e Magdalena Root Magdalena Root No Magdalena 550 MG 550 MG Root 550 MG Vitamin D Vitamin D No 1{table QD Vitamin D 2000 UNIT 2000 UNIT t} 2000 UNIT Tumersaid Tumersaid No Tumersaid Zinc Zinc No Zinc Glucosamine Glucosamine No Glucosamin e Magdalena Root Magdalena Root No Magdalena 550 MG 550 MG Root 550 MG Zinc Zinc No Zinc Glucosamine Glucosamine No Glucosamin e Magdalena Root Magdalena Root No Magdalena 550 MG 550 MG Root 550 MG Vitamin D Vitamin D No 1{table QD Vitamin D 2000 UNIT 2000 UNIT t} 2000 UNIT Tumersaid Tumersaid No Tumersaid Zinc Zinc No Zinc Glucosamine Glucosamine No Glucosamin e Magdalena Root Magdalena Root No Magdalena 550 MG 550 MG Root 550 MG Vitamin D Vitamin D No 1{table QD Vitamin D 2000 UNIT 2000 UNIT t} 2000 UNIT Tumersaid Tumersaid No Tumersaid Glucosamine Glucosamine No Glucosamin e Zinc Zinc No Zinc Magdalena Root Magdalena Root No Magdalena 550 MG 550 MG Root 550 MG Tumersaid Tumersaid No Tumersaid Vitamin D Vitamin D No 1{table QD Vitamin D 2000 UNIT 2000 UNIT t} 2000 UNIT Glucosamine Glucosamine No Glucosamin e Zinc Zinc No Zinc Magdalena Root Magdalena Root No Magdalena 550 MG 550 MG Root 550 MG Tumersaid Tumersaid No Tumersaid Vitamin D Vitamin D No 1{table QD Vitamin D 2000 UNIT 2000 UNIT t} 2000 UNIT Vitamin D Vitamin D No 1{table QD Vitamin D 2000 UNIT 2000 UNIT t} 2000 UNIT Magdalena Root Magdalena Root No Magdalena 550 MG 550 MG Root 550 MG Glucosamine Glucosamine No Glucosamin e Zinc Zinc No Zinc Tumersaid Tumersaid No Tumersaid Vitamin D Vitamin D No 1{table QD Vitamin D 2000 UNIT 2000 UNIT t} 2000 UNIT Magdalena Root Magdalena Root No Magdalena 550 MG 550 MG Root 550 MG Glucosamine Glucosamine No Glucosamin e Zinc Zinc No Zinc Tumersaid Tumersaid No Tumersaid Tumersaid Tumersaid No Tumersaid Vitamin D Vitamin D No 1{table QD Vitamin D 2000 UNIT 2000 UNIT t} 2000 UNIT Zinc Zinc No Zinc Magdalena Root Magdalena Root No Magdalena 550 MG 550 MG Root 550 MG Glucosamine Glucosamine No Glucosamin e Glucosamine Glucosamine No Glucosamin e Zinc Zinc No Zinc Tumersaid Tumersaid No Tumersaid Magdalena Root Magdalena Root No Magdalena 550 MG 550 MG Root 550 MG Vitamin D Vitamin D No 1{table QD Vitamin D 2000 UNIT 2000 UNIT t} 2000 UNIT Glucosamine Glucosamine No Glucosamin e Zinc Zinc No Zinc Tumersaid Tumersaid No Tumersaid Immunizations Ordered Immunization Filled Immunization Date Status Commen ts Source Name Name [facility] [place] [facility] [place] 2020-06-11 Completed [facility] 16:37:00 - [facility] [place] [facility] [place] 2020-06-11 Completed [facility] 16:37:00 [facility] Ralph Rosas 2020-06-11 Completed [facility] (Triamcinolone) (Triamcinolone) 16:36:00 [facility] Kenwendy Rosas 2020-06-11 Completed [facility] (Triamcinolone) (Triamcinolone) 16:36:00 [facility] FluAD FluAD 2020-02-12 Completed [facility] 08:25:00 - [facility] FluAD FluAD 2020-02-12 Completed [facility] 08:25:00 - [facility] FluAD FluAD 2020-02-12 Completed [facility] 08:25:00 - [facility] FluAD FluAD 2020-02-12 Completed [facility] 08:25:00 - [facility] FluAD FluAD 2020-02-12 Completed [facility] 08:25:00 - [facility] FluAD FluAD 2020-02-12 Completed [facility] 08:25:00 - [facility] FluAD FluAD 2020-02-12 Completed [facility] 08:25:00 - [facility] FluAD FluAD 2020-02-12 Completed [facility] 08:25:00 - [facility] FluAD FluAD 2020-02-12 Completed [facility] 08:25:00 - [facility] FluAD FluAD 2020-02-12 Completed [facility] 08:25:00 - [facility] FluAD FluAD 2020-02-12 Completed [facility] 08:25:00 - [facility] FluAD FluAD 2020-02-12 Completed [facility] 08:25:00 - [facility] FluAD FluAD 2020-02-12 Completed [facility] 08:25:00 - [facility] Kenalog Kenalog 2019-11-18 Completed [facility] (Triamcinolone) (Triamcinolone) 08:43:00 [facility] Kenalog Kenalog 2019-11-18 Completed [facility] (Triamcinolone) (Triamcinolone) 08:43:00 [facility] [place] [facility] [place] 2019-11-18 Completed [facility] 08:42:00 - [facility]ivicaine [facility] [place] B[facility]aine [facility] [place] 2019-11-18 Completed [facility] 08:42:00 - [facility] FLUZONE HIGH DOSE FLUZONE HIGH DOSE 2019-01-28 Completed [facility] OVER 65 OVER 65 08:37:00 - [facility] FLUZONE HIGH DOSE FLUZONE HIGH DOSE 2019-01-28 Completed [facility] OVER 65 OVER 65 08:37:00 - [facility] FLUZONE HIGH DOSE FLUZONE HIGH DOSE 2019-01-28 Completed [facility] OVER 65 OVER 65 08:37:00 - [facility] FLUZONE HIGH DOSE FLUZONE HIGH DOSE 2019-01-28 Completed [facility] OVER 65 OVER 65 08:37:00 - [facility] FLUZONE HIGH DOSE FLUZONE HIGH DOSE 2019-01-28 Completed [facility] OVER 65 OVER 65 08:37:00 - [facility] FLUZONE HIGH DOSE FLUZONE HIGH DOSE 2019-01-28 Completed [facility] OVER 65 OVER 65 08:37:00 - [facility] FLUZONE HIGH DOSE FLUZONE HIGH DOSE 2019-01-28 Completed [facility] OVER 65 OVER 65 08:37:00 - [facility] FLUZONE HIGH DOSE FLUZONE HIGH DOSE 2019-01-28 Completed [facility] OVER 65 OVER 65 08:37:00 - [facility] FLUZONE HIGH DOSE FLUZONE HIGH DOSE 2019-01-28 Completed [facility] OVER 65 OVER 65 08:37:00 - [facility] FLUZONE HIGH DOSE FLUZONE HIGH DOSE 2019-01-28 Completed [facility] OVER 65 OVER 65 08:37:00 - [facility] FLUZONE HIGH DOSE FLUZONE HIGH DOSE 2019-01-28 Completed [facility] OVER 65 OVER 65 08:37:00 - [facility] FLUZONE HIGH DOSE FLUZONE HIGH DOSE 2019-01-28 Completed [facility] OVER 65 OVER 65 08:37:00 - [facility] FLUZONE HIGH DOSE FLUZONE HIGH DOSE 2019-01-28 Completed [facility] OVER 65 OVER 65 08:37:00 - [facility] Vital Signs Vital Name Observation Time Observation Value Comments Source height 2022-06-16 08:20:00 68 [in_i] [facility] weight 2022-06-16 08:20:00 211.4 [lb_av] [facility] temperature 2022-06-16 08:20:00 97.2 [degF] [facility] bmi 2022-06-16 08:20:00 32.14 kg/m2 [facility] oximetry 2022-06-16 08:20:00 98 % [facility] respiratory rate 2022-06-16 08:20:00 18 /min Comm on [facility] blood pressure 2022-06-16 08:20:00 138 mm[Hg] Common [facility] - systolic [facility] blood pressure 2022-06-16 08:20:00 79 mm[Hg] Common [facility] - diastolic [facility] height 2022-03-14 08:00:00 68 [in_i] Common [facility] weight 2022-03-14 08:00:00 210.0 [lb_av] [facility] - [facility] temperature 2022-03-14 08:00:00 97.9 [degF] Common S pirit - [facility] bmi 2022-03-14 08:00:00 31.93 kg/m2 Common S pirit [facility] blood pressure 2022-03-14 08:00:00 134 mm[Hg] [facility] - systolic [facility] blood pressure 2022-03-14 08:00:00 84 mm[Hg] [facility] - diastolic [facility] height 2022-01-31 13:45:00 68 [in_i] Common [facility] weight 2022-01-31 13:45:00 207.7 [lb_av] [facility] temperature 2022-01-31 13:45:00 96.3 [degF] [facility] bmi 2022-01-31 13:45:00 31.58 kg/m2 [facility] S pirit [facility] blood pressure 2022-01-31 13:45:00 138 mm[Hg] [facility] - systolic [facility] blood pressure 2022-01-31 13:45:00 84 mm[Hg] [facility] - diastolic [facility] height 2022-01-27 08:50:00 66.5 [in_i] Common S [facility] weight 2022-01-27 08:50:00 203 [lb_av] Common S [facility] temperature 2022-01-27 08:50:00 98.3 [degF] Common [facility] bmi 2022-01-27 08:50:00 32.27 kg/m2 [facility] oximetry 2022-01-27 08:50:00 95 % [facility] S pirit [facility] respiratory rate 2022-01-27 08:50:00 18 /min Comm on [facility] blood pressure 2022-01-27 08:50:00 136 mm[Hg] Common [facility] - systolic [facility] blood pressure 2022-01-27 08:50:00 82 mm[Hg] [facility] - diastolic [facility] height 2022-01-27 09:00:00 68 [in_i] Common [facility] weight 2022-01-27 09:00:00 203 [lb_av] Common [facility] temperature 2022-01-27 09:00:00 98.3 [degF] Common [facility] bmi 2022-01-27 09:00:00 30.86 kg/m2 [facility] oximetry 2022-01-27 09:00:00 95 % [facility] respiratory rate 2022-01-27 09:00:00 18 /min Comm on [facility] blood pressure 2022-01-27 09:00:00 136 mm[Hg] Common [facility] - systolic [facility] blood pressure 2022-01-27 09:00:00 82 mm[Hg] Common [facility] - diastolic [facility] height 2022-01-13 08:15:00 68 [in_i] Common [facility] weight 2022-01-13 08:15:00 209 [lb_av] [facility] temperature 2022-01-13 08:15:00 97.6 [degF] [facility] bmi 2022-01-13 08:15:00 31.77 kg/m2 Common [facility] blood pressure 2022-01-13 08:15:00 138 mm[Hg] Common [facility] - systolic [facility] blood pressure 2022-01-13 08:15:00 84 mm[Hg] Common [facility] - diastolic [facility] Systolic blood 2021-12-25 22:09:00 157 mm[Hg] [facility] Diastolic blood 2021-12-25 22:09:00 85 mm[Hg] [facility] Heart rate 2021-12-25 22:09:00 76 /min [facility] Body temperature 2021-12-25 22:09:00 37 [facility] Respiratory rate 2021-12-25 22:09:00 18 /min [facility] Body height 2021-12-25 22:09:00 172.7 cm [facility] Body weight 2021-12-25 22:09:[address] [facility] BMI 2021-12-25 22:09:00 31.63 kg/m2 [facility] Oxygen saturation in 2021-12-25 22:09:00 97 /min [facility] Arterial blood by [facility] Pulse oximetry Branch height 2021-12-21 08:00:00 68 [in_i] Common [facility] weight 2021-12-21 08:00:00 209.1 [lb_av] Common [facility] temperature 2021-12-21 08:00:00 97.2 [degF] Common [facility] bmi 2021-12-21 08:00:00 31.79 kg/m2 Common [facility] blood pressure 2021-12-21 08:00:00 138 mm[Hg] [facility] - systolic [facility] blood pressure 2021-12-21 08:00:00 84 mm[Hg] [facility] - diastolic [facility] height 2021-10-25 08:00:00 68 [in_i] Common [facility] weight 2021-10-25 08:00:00 207 [lb_av] Common [facility] temperature 2021-10-25 08:00:00 97.3 [degF] Common [facility] bmi 2021-10-25 08:00:00 31.47 kg/m2 Common [facility] blood pressure 2021-10-25 08:00:00 146 mm[Hg] [facility] - systolic [facility] blood pressure 2021-10-25 08:00:00 84 mm[Hg] [facility] - diastolic [facility] height 2021-02-08 08:40:00 68 [in_i] [facility] weight 2021-02-08 08:40:00 209.1 [lb_av] [facility] temperature 2021-02-08 08:40:00 98.0 [degF] [facility] bmi 2021-02-08 08:40:00 31.79 kg/m2 [facility] oximetry 2021-02-08 08:40:00 97 % [facility] respiratory rate 2021-02-08 08:40:00 18 /min Comm on [facility] blood pressure 2021-02-08 08:40:00 138 mm[Hg] Common [facility] systolic [facility] blood pressure 2021-02-08 08:40:00 72 mm[Hg] [facility] diastolic [facility] Procedures Procedure Date / Time Performed Performing Clinician Sourc e POCT SARS-COV-2 2021-12-25 22:20:00 Maria Guadalupe Cardozo [facility] ANTIGEN (BINAX NOW) Medical Bran ch Encounters Start End Encounter Admission Attending Care Care Encounter Source Date/Time Date/Time Type Type Clinicians Facility Department ID 2022-07-28 Outpatient Mccain, STLMLC STLC [id number] Common 10:49:01 Earl 82421 [facility] 2022-06-16 Outpatient Mccain, STLMLC STLC [id number] Common 07:33:00 Earl [id number] [facility] 2022-01-17 Outpatient Mccain, STLMLC STLC [id number] Common 11:09:01 Earl 06039 [facility] 2021-10-25 Outpatient Mccain, STLMLC STLC [id number] Common 07:53:00 Earl 32084 [facility] 2021-06-16 Outpatient Mccain, STLMLC STLC [id number] Common 14:27:53 Earl [id number] [facility] 2021-06-16 Outpatient Mccain, STLMLC STLMLC [id number] Common 13:51:26 Earl 85580 [facility] 2021-06-16 Outpatient Mccain, STLMLC STLMLC [id number] Common 13:50:23 Earl 25015 [facility] 2021-06-16 Outpatient Mccain, STLMLC STLMLC [id number] Common 13:03:35 Earl 27603 [facility] 2021-06-16 Outpatient Mccain, STLMLC STLMLC [id number] Common 12:43:15 Earl 20520 [facility] 2021-06-16 Outpatient Mccain, STLMLC STLMLC [id number] Common 12:25:45 Earl 42781 [facility] 2021-06-16 Outpatient Mccain, STLMLC STLMLC [id number] Common 12:23:39 Earl 54607 [facility] 2021-06-16 Outpatient Mccain, STLMLC STLMLC [id number] Common 12:23:14 Earl [id number] [facility] 2021-06-16 Outpatient Mccain, STLMLC STLMLC [id number] Common 12:22:53 Earl [id number] [facility] 2021-06-16 Outpatient Mccain, STLMLC STLMLC [id number] Common 12:18:10 Earl 62289 [facility] 2021-06-16 Outpatient Mccain, STLMLC STLMLC [id number] Common 12:13:36 Earl [id number] [facility] 2021-06-16 Outpatient Mccain, STLMLC STLMLC [id number] Common 11:28:23 Earl [id number] [facility] 2022-06-16 2022-06-16 OFFICE STLMLC STLMLC [id number] Co mmon 00:00:00 00:00:00 VISIT Spirit ESTAB PT - CHI LEVEL 4 [facility] 2022-03-14 2022-03-14 OFFICE STLMLC STLMLC [id number] Co mmon 00:00:00 00:00:00 VISIT EST Spir it PT LEVEL 3 - CHI [facility] 2022-01-31 2022-01-31 OFFICE STLMLC STLMLC [id number] Co mmon 00:00:00 00:00:00 VISIT Spirit ESTAB PT - CHI LEVEL 4 [facility] 2022-01-27 2022-01-27 OFFICE STLMLC STLMLC [id number] Co mmon 00:00:00 00:00:00 VISIT Spirit ESTAB PT - CHI LEVEL 4 [facility] 2022-01-27 2022-01-27 SUB ANNUAL STLMLC STLMLC [id number] Common 00:00:00 00:00:00 MCR Spirit WELLNESS - CHI VISIT [facility] 2022-01-13 2022-01-13 OFFICE STLMLC STLMLC [id number] Co mmon 00:00:00 00:00:00 VISIT Spirit ESTAB PT - CHI LEVEL 4 [facility] 2021-12-27 2021-12-27 (TEL) [facility] STLC [id number] Co mmon 00:00:00 00:00:00 [facility] 2021-12-25 2021-12-25 Outpatient R EUGENIO [facility] [id number] Univers 17:00:00 17:25:45 [facility] 2021-12-25 2021-12-25 [facility] [id number] Univers 17:00:00 17:25:45 Care [facility] [id number] it y [facility] [id number] [place] as TIERRA?BLEA [id number] [address] MEDICAL OFFICE BUILDING 2021-12-21 2021-12-21 (TEL) STLC STLC [id number] Co mmon 00:00:00 00:00:00 Spirit [facility] 2021-12-21 2021-12-21 OFFICE STLMLC STLMLC [id number] Co mmon 00:00:00 00:00:00 VISIT [facility] ESTAB PT - CHI LEVEL 4 [facility] 2021-11-12 2021-11-12 (TEL) STLMLC STLMLC [id number] Co mmon 00:00:00 00:00:00 [facility] 2021-10-25 2021-10-25 OFFICE STLMLC STLMLC [id number] Co mmon 00:00:00 00:00:00 VISIT [facility] PT - [facility] LEVEL 4 [facility] 2021-03-10 2021-03-10 (TEL) STLMLC STLMLC [id number] Co mmon 00:00:00 00:00:00 [facility] 2021-02-08 2021-02-08 OFFICE STLMLC STLMLC [id number] Co mmon 00:00:00 00:00:00 VISIT [facility] PT - [facility] 4 [facility] 2020-10-05 2020-10-05 Outpatient STLMLC STLMLC [id number] Common 00:00:00 00:00:00 [facility] 2020-10-05 2020-10-05 Outpatient STLMLC STLMLC [id number] Common 00:00:00 00:00:00 [facility] 2020-08-12 2020-08-12 Outpatient STLMLC STLMLC [id number] Common 00:00:00 00:00:00 [facility] 2020-07-28 2020-07-28 Outpatient STLMLC STLMLC [id number] Common 00:00:00 00:00:00 [facility] 2020-06-11 2020-06-11 Outpatient STLMLC STLMLC [id number] Common 00:00:00 00:00:00 [facility] 2020-06-11 2020-06-11 Outpatient STLMLC STLMLC [id number] Common 00:00:00 00:00:00 [facility] 2020-06-01 2020-06-01 Outpatient STLMLC STLMLC [id number] Common 00:00:00 00:00:00 [facility] 2020-05-27 2020-05-27 Outpatient STLMLC STLMLC [id number] Common 00:00:00 00:00:00 [facility] 2020-05-18 2020-05-18 Outpatient STLMLC STLMLC [id number] Common 00:00:00 00:00:00 [facility] 2020-05-05 2020-05-05 Outpatient STLMLC STLMLC [id number] Common 00:00:00 00:00:00 [facility] 2020-05-04 2020-05-04 Outpatient STLMLC STLMLC [id number] Common 00:00:00 00:00:00 [facility] 2020-02-12 2020-02-12 Outpatient STLMLC STLMLC [id number] Common 00:00:00 00:00:00 [facility] 2019-11-18 2019-11-18 [facility] [id number] Common 08:15:00 08:15:00 [facility] 2019-10-28 2019-10-28 [facility] [id number] Common 09:30:00 09:30:00 [facility] 2019-10-10 2019-10-10 [facility] [id number] Common 09:00:00 09:00:[address] [place] [address] [facility] 2019-10-10 2019-10-10 [facility] [id number] Common 08:45:00 08:45:[address] [place] [address] [facility] 2019-05-27 2019-05-27 [facility] [id number] Common 08:15:00 08:15:[address] [place] [address] [facility] Results Test Description Test Time Test Comments Results Result Comments Source POCT SARS-COV-2 ANTIGEN (BINAX NOW) 2021-12-25 22:20:00 Test Item Value Reference Range Interpretation Comme nts POCT SARS-COV-2 ANTIGEN (test code Positive Not Detected A = 5076) On board controls acceptable with Yes C Line (test code = 3574) RAYO (test code = RAYO) accurate development and interpretation of all internal controls Lab Interpretation (test code = Abnormal 97195-4) [facility] ContMRI Shoulder Rt Wo Cont
[2022-07-29 09:56] LABS: Absolute Lymphocytes (CBC) 1.5 K/uL (0.7-4.9); Hematocrit 47.2 % (39.6-49.0); Lymphocytes % 22.8 % (15.3-44.8); MCV 94.1 fL (80-100); RBC Red Blood Cell Count 5.02 M/uL (4.33-5.43)
[2022-07-29 10:18] LABS: Albumin 3.9 g/dL (3.4-5.0); Bilirubin Total 0.7 mg/dL (0.2-1.0); Potassium 4.3 mmol/L (3.5-5.1); Protein, Total 6.8 g/dL (6.4-8.2)
[2022-07-29] MEDS ORDERED: ONDANSETRON 4 MG/2 ML VIAL ONE (10:18)
[2022-07-29] MEDS ORDERED: dexAMETHasone 10 MG/ML VIAL ONE (10:18)
[2022-07-29] MEDS ORDERED: MORPHINE 4 MG/ML SYR ONE ×2 (10:18→11:26)
[2022-07-29 10:32] LABS: Urine Blood Negative (Negative); Urine Glucose Negative (Negative); Urine Protein Negative (Negative)
--- NOTE | 2022-07-29 10:47 | RAD REPORT ---
EXAM DESCRIPTION: CTAbdomen Pelvis W Contrast - 07/29/2022 10:33 am CLINICAL HISTORY: back pain with radiation COMPARISON: No comparisonsAngio Aorta For Dissection dated 07/27/2020 TECHNIQUE: CT of the abdomen and pelvis was performed with IV contrast. All CT scans are performed using dose optimization technique as appropriate and may include automated exposure control or mA/KV adjustment according to patient size. FINDINGS: Lower chest: Coronary artery stent. Liver: Hepatic steatosis. Unchanged low-density liver lesions which are statistically benign. Biliary: Cholecystectomy Stomach: No significant focal abnormality. Duodenum: No significant focal abnormality. Pancreas: No significant abnormality. Spleen: No significant abnormality. Adrenal: No suspicious lesions. Kidney/ureter: No hydronephrosis. No renal calculi. Too small to characterize and/or benign appearing renal lesions are noted. Retroperitoneum: No retroperitoneal adenopathy. Vascular: No aneurysm. Atherosclerosis Bowel: No significant focal abnormality. Peritoneum: No ascites or free air. Bladder: Grossly unremarkable. Reproductive: No adnexal masses. Bones: No acute fracture. L5-S1 fusion. Multilevel degenerative changes are present in the spine. Other: n/a IMPRESSION: No acute intra-abdominal or pelvic finding. No renal or ureteral calculi identified.
[2022-07-29] MEDS ORDERED: KETOROLAC 30 MG/ML INJ ONE (11:27)
[2022-07-29 12:35] VITALS: TEMP 98.3
[2022-07-29 12:39] VITALS: BP 158/79; O2SAT 98
--- NOTE | 2022-08-12 16:27 | EDPHYS ---
Physician Documentation [facility] Name: Bandar Mayo Age: 67 yrs Sex: Male : 1955 Arrival Date: 07/29/2022 Time: 09:01 Bed 11 Private MD: Frantz Mccainh ED Physician Hardik You HPI: 07/29 10:14 This 67 yrs old Male presents to ER via Wheelchair with complaints of Back Pain. rn 10:14 The patient presents with pain that is acute, with no known mechanism of injury. rn 10:14 The symptoms are located in the low back. Onset: The symptoms/episode began/occurred 2 rn day(s) ago. The pain radiates to the left leg. Associated signs and symptoms: Pertinent positives: tingling, Pertinent negatives: abdominal pain, chest pain, fever, incontinence, urinary retention, weakness. Modifying factors: The patient symptoms are alleviated by remaining still, the patient symptoms are aggravated by any movement, movement. Severity of symptoms: At their worst the symptoms were moderate, in the emergency department the symptoms are unchanged. The patient has experienced a previous episode. The patient has not recently seen a physician. Pt reports low back pain, began 2 days ago, has had back problems before with surgery. No weakness. No fever. NO bowel/bladder problems. . Historical: - Allergies: 09:11 No Known Allergies; ph - Immunization history:: Adult Immunizations unknown. - Family history:: not pertinent. - Social history:: Smoking status: Patient denies any tobacco usage or history of. - Hospitalizations: : No recent hospitalization is reported. ROS: 10:19 Constitutional: Negative for fever, chills, and weight loss, Cardiovascular: Negative rn for chest pain, palpitations, and edema, Respiratory: Negative for shortness of breath, cough, wheezing, and pleuritic chest pain, Abdomen/GI: Negative for abdominal pain, nausea, vomiting, diarrhea, and constipation, Back: Negative for injury MS/Extremity: Negative for injury and deformity, Skin: Negative for injury, rash, and discoloration, Neuro: Negative for headache, weakness, and seizure. Exam: 10:19 Constitutional: This is a well developed, well nourished patient who is awake, alert, rn appears uncomfortable Head/Face: Normocephalic, atraumatic. Cardiovascular: Bradycardic, regular. No pulse deficits. Respiratory: No increased work of breathing, no retractions or nasal flaring. Abdomen/GI: Soft, non-tender Back: No spinal tenderness. No CVA. + bilateral perilumbar tenderness, no skin changes, no masses Skin: Warm, dry MS/ Extremity: Pulses equal, no cyanosis. Neurovascular intact. Full, normal range of motion. Equal circumference. Neuro: Awake and alert, GCS 15, oriented to person, place, time, and situation. Motor strength 5/5 in all extremities. Sensory grossly intact. Vital Signs: 09:15 BP 165 / 74; Pulse 58; Resp 18; Temp 98.3; Pulse Ox 100% on R/A; Weight 93.89 kg; ph Height 5 ft. 8 in. ; 10:36 BP 143 / 96; Pulse 74; Resp 18; Pulse Ox 99% on R/A; ph 11:25 BP 159 / 87; Pulse 58; Resp 18; Pulse Ox 97% ; Pain 3/10; nj1 12:00 BP 158 / 79; Pulse 65; Resp 18; Pulse Ox 98% on R/A; Pain 1/10; nj1 09:15 Body Mass Index 31.47 (93.89 kg, 172.72 cm) ph 11:25 Pain Scale: Adult nj1 12:00 Pain Scale: Adult nj1 11:25 Pt rates pain at 3/10 currently with no movement, states if he attempts to move to nj1 reposition self, pain increases to "15" out of 10. MDM: 09:08 Patient medically screened. rn 11:14 Differential diagnosis: arthritis, Osteoarthritis Pyelonephritis ruptured disc, spinal rn injury, sprain, Ureterolithiasis vertebral fracture, radiculopathy, disc disorder, muscle spasm. Data reviewed: vital signs, nurses notes, lab test result(s), radiologic studies, CT scan, and as a result, I will discharge patient. I considered the following discharge prescriptions or medication management in the emergency department Medications were administered in the Emergency Department. See MAR. Counseling: I had a detailed discussion with the patient and/or guardian regarding: the historical points, exam findings, and any diagnostic results supporting the discharge/admit diagnosis, lab results, radiology results, the need for outpatient follow up, to return to the emergency department if symptoms worsen or persist or if there are any questions or concerns that arise at home. Special discussion: I discussed with the patient/guardian in detail that at this point there is no indication for admission to the hospital. It is understood, however, that if the symptoms persist or worsen the patient needs to return immediately for re-evaluation. Further emergent ED testing is not indicated at this point in time. I discussed with the patient/guardian in detail the need to arrange with the PCP or specialist further outpatient testing, MRI, Based on the history and exam findings, there is no indication for further emergent testing or inpatient evaluation. I discussed with the patient/guardian the need to see the back specialist for further evaluation of the symptoms. 11:16 ED course: Pt already on muscle relaxer, recommend addition of steroids and pain academic intern as well as OTC anti-inflammatories and heating pad. Return precautions given and understood.. 07/29 09:16 Order name: CBC with Diff; Complete Time: 10:37 rn 07/29 09:16 Order name: CMP; Complete Time: 10:37 rn 07/29 09:16 Order name: Lipase; Complete Time: 10:37 rn 07/29 10:32 Order name: Urine Dipstick-Ancillary; Complete Time: 10:37 EDMS 07/29 09:16 Order name: CT Abd/Pelvis - IV Contrast Only; Complete Time: 10:52 rn 07/29 09:16 Order name: IV Saline Lock; Complete Time: 09:49 rn 07/29 09:16 Order name: Labs collected and sent; Complete Time: 09:50 rn 07/29 09:16 Order name: Urine Dipstick-Ancillary (obtain specimen); Complete Time: 10:35 rn Administered Medications: 10:15 Drug: Ondansetron IVP 4 mg Route: IVP; Site: right antecubital; ph 10:38 Follow up: Response: No adverse reaction ph 10:20 Drug: Decadron - Dexamethasone IVP 10 mg Route: IVP; Site: right antecubital; ph 10:38 Follow up: Response: No adverse reaction ph 10:38 Drug: morphine IVP or IV 4 mg Route: IVP; Infused Over: 4 mins; Site: right antecubital;ph 10:38 Follow up: Response: No adverse reaction; Pain is decreased; RASS: Alert and Calm (0) ph 11:25 Drug: morphine IVP or IV 4 mg Route: IVP; Infused Over: 4 mins; Site: right antecubital;nj1 12:00 Follow up: Response: No adverse reaction; Pain is decreased nj1 11:25 Drug: Ketorolac IVP 15 mg Route: IVP; Site: right antecubital; nj1 12:00 Follow up: Response: No adverse reaction; Pain is decreased nj1 Disposition Summary: 07/29/22 11:16 Discharge Ordered Location: Home rn Problem: new rn Symptoms: have improved rn Condition: Stable rn Diagnosis - Low back pain rn - Muscle spasm of back rn Followup: rn - With: Private Physician - When: As needed - Reason: Recheck today's complaints, Re-evaluation by your physician Discharge Instructions: - Discharge Summary Sheet rn - Acute Back Pain, Adult rn - Muscle Cramps and Spasms rn - Back Exercises rn Forms: - Medication Reconciliation Form rn - Thank You Letter rn - Antibiotic it intern - Prescription Opioid Use rn Prescriptions: - Tramadol 50 mg Oral Tablet - take 1 tablet by ORAL route every 8 hours as needed; 12 tablet; Refills: 0, rn Product Selection Permitted - Medrol (Redd) 4 mg Oral Tablets, Dose Pack - take 1 tablet by ORAL route as directed - follow package instructions; 1 rn packet; Refills: 0, Product Selection Permitted Signatures: Dispatcher [employer] Hardik Chairez MD MD rn Hall, Patricia, RN RN ph Jaco, Norma, RN RN nj1
--- NOTE | 2022-08-12 16:27 | ER ---
Nurse's Notes [facility] Name: Bandar Mayo Age: 67 yrs Sex: Male : 1955 Arrival Date: 07/29/2022 Time: 09:01 Bed 11 Private MD: Earl Mccain Diagnosis: Low back pain;Muscle spasm of back Presentation: 07/29 09:09 Chief complaint: Patient states: Hx of back issues, started having upper back pain Wed ph that progressively got worse, went to see Dr Mccain and "got an injection" and prescriptions that have not helped, was told to come to ED. Ebola Screen: No symptoms or risks identified at this time. Initial Sepsis Screen: Does the patient meet any 2 criteria? No. Patient's initial sepsis screen is negative. Does the patient have a suspected source of infection? No. Patient's initial sepsis screen is negative. Risk Assessment: Do you want to hurt yourself or someone else? Patient reports no desire to harm self or others. Onset of symptoms was July 29, 2022. 09:09 Method Of Arrival: Wheelchair ph 09:09 Acuity: SAMUEL 3 ph 09:15 Coronavirus screen: Vaccine status: Patient reports receiving the 2nd dose of the covid ph vaccine. Triage Assessment: 09:11 General: Appears in no apparent distress. ph Historical: - Allergies: 09:11 No Known Allergies; ph - Immunization history:: Adult Immunizations unknown. - Family history:: not pertinent. - Social history:: Smoking status: Patient denies any tobacco usage or history of. - Hospitalizations: : No recent hospitalization is reported. Screenin:35 [facility] ED Fall Risk Assessment (Adult) History of falling in the last 3 months, ph including since admission No falls in past 3 months (0 pts) Confusion or Disorientation No (0 pts) Intoxicated or Sedated No (0 pts) Impaired Gait Yes (1 pt) Mobility Assist Device Used Yes (1 pt) Altered Elimination No (0 pt) Score/Fall Risk Level 0 - 2 = Low Risk Oriented to surroundings, Maintained a safe environment, Hourly rounding (assess needs \\T\\ fall precautionary measures) done. Abuse screen: Denies threats or abuse. Denies injuries from another. Nutritional screening: No deficits noted. Tuberculosis screening: No symptoms or risk factors identified. Assessment: 10:34 General: Appears in no apparent distress. uncomfortable, Behavior is calm, cooperative, ph appropriate for age, Denies fever, feeling ill. Pain: Complains of pain in lumbar area. Neuro: Shanks Agitation-Sedation Scale (RASS): 0 - Alert and Calm Level of Consciousness is awake, alert, obeys commands, Oriented to person, place, time, situation. Cardiovascular: Capillary refill < 3 seconds in bilateral fingers Patient's skin is warm and dry. Respiratory: Airway is patent Respiratory effort is even, unlabored. GI: No signs and/or symptoms were reported involving the gastrointestinal system. Derm: Skin is healthy with good turgor, Skin is pink, warm \\T\\ dry. Musculoskeletal: Reports pain in back. 10:39 Reassessment: Patient appears in no apparent distress at this time. Patient and/or ph family updated on plan of care and expected duration. Pain level reassessed. Patient is alert, oriented x 3, equal unlabored respirations, skin warm/dry/pink. Pt returned from CT, reports that pain improved after IV pain medication, RASS 0. 11:25 Reassessment: Patient appears in no apparent distress at this time. Patient and/or nj1 family updated on plan of care and expected duration. Pain level reassessed. Patient is alert, oriented x 3, equal unlabored respirations, skin warm/dry/pink. Family/friend at bedside. 12:00 Reassessment: Patient appears in no apparent distress at this time. Patient and/or nj1 family updated on plan of care and expected duration. Pain level reassessed. Patient is alert, oriented x 3, equal unlabored respirations, skin warm/dry/pink. Patient states feeling better. Vital Signs: 09:15 BP 165 / 74; Pulse 58; Resp 18; Temp 98.3; Pulse Ox 100% on R/A; Weight 93.89 kg; ph Height 5 ft. 8 in. ; 10:36 BP 143 / 96; Pulse 74; Resp 18; Pulse Ox 99% on R/A; ph 11:25 BP 159 / 87; Pulse 58; Resp 18; Pulse Ox 97% ; Pain 3/10; nj1 12:00 BP 158 / 79; Pulse 65; Resp 18; Pulse Ox 98% on R/A; Pain 1/10; nj1 09:15 Body Mass Index 31.47 (93.89 kg, 172.72 cm) ph 11:25 Pain Scale: Adult nj1 12:00 Pain Scale: Adult nj1 11:25 Pt rates pain at 3/10 currently with no movement, states if he attempts to move to nj1 reposition self, pain increases to "15" out of 10. ED Course: 09:01 Patient arrived in ED. mr 09:01 Earl Mccain, is Private Physician. mr 09:08 Hardik You MD is Attending Physician. rn 09:11 Triage completed. ph 09:16 Arm band placed on Patient placed in an exam room. ph 09:50 CBC with Diff Sent. zm 09:50 CMP Sent. zm 09:50 Lipase Sent. zm 09:50 Inserted saline lock: 20 gauge in right antecubital area, using aseptic technique. zm Blood collected. 10:07 Preethi Nolan, RN is Primary Nurse. ph 10:35 CT Abd/Pelvis - IV Contrast Only In Process Unspecified. EDMS 10:36 Patient has correct armband on for positive identification. Bed in low position. Call ph light in reach. Side rails up X 1. Pulse ox on. NIBP on. Door closed. Noise minimized. Warm blanket given. 12:00 No provider procedures requiring assistance completed. nj1 12:00 IV discontinued, bleeding controlled. nj1 Administered Medications: 10:15 Drug: Ondansetron IVP 4 mg Route: IVP; Site: right antecubital; ph 10:38 Follow up: Response: No adverse reaction ph 10:20 Drug: Decadron - Dexamethasone IVP 10 mg Route: IVP; Site: right antecubital; ph 10:38 Follow up: Response: No adverse reaction ph 10:38 Drug: morphine IVP or IV 4 mg Route: IVP; Infused Over: 4 mins; Site: right antecubital;ph 10:38 Follow up: Response: No adverse reaction; Pain is decreased; RASS: Alert and Calm (0) ph 11:25 Drug: morphine IVP or IV 4 mg Route: IVP; Infused Over: 4 mins; Site: right antecubital;nj1 12:00 Follow up: Response: No adverse reaction; Pain is decreased nj1 11:25 Drug: Ketorolac IVP 15 mg Route: IVP; Site: right antecubital; nj1 12:00 Follow up: Response: No adverse reaction; Pain is decreased nj1 Medication: 10:35 VIS not applicable for this client. ph Outcome: 11:16 Discharge ordered by . rn 12:05 Discharged to home via wheelchair. nj1 12:05 Condition: stable 12:05 Discharge instructions given to patient, family, friend, Instructed on discharge nj1 instructions, follow up and referral plans. medication usage, safety practices, Demonstrated understanding of instructions, follow-up care, medications, Prescriptions given X 2. 12:13 Patient left the ED. nj1 Signatures: Dispatcher [employer] Elayne Dixon Roman, MD MD rn Hall, Patricia, RN RN Tye, Maria Victoria Clancy RN RN nj1
== END 2022-07-29 12:13 | disposition home or self-care (01) ==
LOC: ER 08:56
DX: M54.50 Low back pain, unspecified (principal); M62.830 Muscle spasm of back
CPT/HCPCS: 85025; 36415; 81003; 83690; 80053; 74177; 96375; 96374; 99284; Q9967; J1100; J2405

== ENCOUNTER 2023-03-27 12:34 | Inpatient (IN) | payer OTHER ==
--- OUTSIDE RECORDS SUMMARY | 2023-03-27 12:38 | XMS REPORT | Continuity of Care Document ---
:1955 Author Organization [facility] t Address [address] [place] [address] [address] [place] [address] Care Team Providers Name Role Phone Pcp, Patient Does Not Have A Primary Care Physician [id number] Earl Mccain Attending Clinician Unavailable ANT BURT Attending Clinician Unavailable Ant Lezama Attending Clinician Unknown, Attending Attending Clinician Unavailable Doctor Unassigned, Siren Attending Clinician Unavailable KATHIA DE LA VEGA Attending Clinician Unavailable Kathia De La Vega MD Attending Clinician Payers Payer Name Policy Type Policy Number Effective Date Expiration Date S eun MEDICARE PART A [id number] 2018 \T\ B 00:00:00 COMMERCIAL [id number] 2022 NON-CONTRACT 00:00:00 GENERIC MEDICARE LAWITAS MB [id number] [facility] C1 [id number] Common INS[facility]ANCE [facility] - [facility] COMPANY [facility] C1 [id number] [facility] - [facility] MEDICARE NOVITAS MB [id number] [facility] Problems Condition Condition Condition Status Onset Resolution Last Treating Co mments Source Name Details Category Date Date Treatment Clinician Date No known No known Disease Unive rs active active ity of problems problems [facility] [id number] Primary Problem Comm on osteoarthr Spirit itis, - CHI right [facility] [id number] Tear of Problem Commo n right Spirit rotator [facility], Center unspecifie d whether traumatic [id number] Incomplete Problem Co mmon tear of Spirit right - CHI rotator [facility] cuff, [facility] unspecifie Medica l d whether Center traumatic [id number] Alcohol Problem Common use Spirit disorder, - [facility]I mild, [facility] [id number] Fatigue, Problem Commo n unspecifie Spirit d type - [facility]I [facility] [id number] [place] [address] heavy Spirit tobacco - CHI smoker [facility] [id number] Fatty Problem Common liver, Spirit alcoholic - [facility] [id number] Mixed Problem Common hyperlipid Spirit emia [facility] [id number] HTN Problem Common (hypertens Spirit ion), [facility] benign [facility] [id number] LEONA Problem Common (obstructi Spirit ve sleep - CHI apnea) [facility] [id number] Primary Problem Comm on osteoarthr Spirit itis of - CHI left [facility] [id number] Adult BMI Problem Com mon 31.0-31.9 Spirit kg/sq m - [facility] [id number] Diverticul Problem C ommon 800650 osis large Spirit intestine - 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 unspecifie Medica l d tear Center extent Allergies, Adverse Reactions, Alerts Allergy Allergy Status Severity Reaction(s) Onset Inactive Treating Comm ents Source Name Type Date Date Clinician NO KNOWN Drug Active Univers ALLERGIE Class ity of S [facility] Social History Social Habit Start Date Stop Date Quantity Comments Source History of [facility] - Tobacco Use [facility] Sex Assigned At Common Sp kami - [facility] Exposure to 2021-12-15 2021-12-25 Yes University SARS-CoV-2 00:00:00 17:05:00 [facility] (event) Branch Tobacco use and 2021-12-25 2021-12-25 Smokeless tobacco Un iversity of exposure 00:00:00 00:00:00 non-user [facility] Smoking Status Start Date Stop Date Source Ex-smoker 2021-12-25 00:00:00 2021-12-25 00:00:00 Universi ty of [facility] Medications Ordered Filled Start Stop Current Ordering Indication Dosage Frequency Signature Comments Components Source Medication Medication Date Date Medication? Clinician (SIG) Name Name ciprofloxac 2022- No [id number] 500mg Take 1 Univers in HCl 500 11-26 tablet by ity of mg tablet 00:00: 04:59 mouth [place] 00 :00 every 12 Medical (twelve) Branch hours for 7 days. ciprofloxac 2022- No [id number] 500mg Take 1 Univers in HCl 500 11-26 tablet by ity of mg tablet 00:00: 04:59 mouth [place] 00 :00 every 12 Medical (twelve) Branch hours for 7 days. ciprofloxac 2022- No [id number] 500mg Take 1 Univers in HCl 500 11-26 tablet by ity of mg tablet 00:00: 04:59 mouth [place] 00 :00 every 12 Medical (twelve) Branch hours for 7 days. Kenalog Kenalog No 40mg Common (Triamcinol (Triamcinol 3-09 S pirit one) one) 00:00: - CH[facility] Kenalog Kenalog No 40mg Common (Triamcinol (Triamcinol 3-09 S pirit one) one) 00:00: - CHI [facility] Kenalog Kenalog No 40mg Common (Triamcinol (Triamcinol 8-25 S pirit one) one) 00:00: - [facility] Bupivicaine Bupivicaine No 5mg Common [place] 8-25 Spirit 00:00: - CHI [facility] Kenalog Kenalog 2021-0 No 40mg Common (Triamcinol (Triamcinol 8-25 S pirit one) one) 00:00: - CHI 00 [facility] Bupivicaine Bupivicaine 2-0 No 5mg Common [place] 8-25 Spirit 00:00: - CHI 00 [facility] Kenalog Kenalog 2021-0 No 40mg Common (Triamcinol (Triamcinol 8-25 S pirit one) one) 00:00: - CHI 00 [facility] Bupivicaine Bupivicaine 2021-0 No 5mg Common [place] 8-25 Spirit 00:00: - CHI 00 [facility] Kenalog Kenalog 2021-0 No 40mg Common (Triamcinol (Triamcinol 8-25 S pirit one) one) 00:00: - CHI 00 [facility] Bupivicaine Bupivicaine 2-0 No 5mg Common [place] 8-25 Spirit 00:00: - CHI 00 [facility] Kenalog Kenalog 2021-0 No 40mg Common (Triamcinol (Triamcinol 8-25 S pirit one) one) 00:00: - CHI 00 [facility] Bupivicaine Bupivicaine 2021-0 No 5mg Common [place] 8-25 Spirit 00:00: - CHI 00 [facility] Kenalog Kenalog 2-0 No 40mg Common (Triamcinol (Triamcinol 8-25 S pirit one) one) 00:00: - CHI 00 [facility] Bupivicaine Bupivicaine 2-0 No 5mg Common [place] 8-25 Spirit 00:00: - CHI 00 [facility] Kenalog Kenalog 2-0 No 40mg Common (Triamcinol (Triamcinol 8-25 S pirit one) one) 00:00: - CHI 00 [facility] Bupivicaine Bupivicaine 2-0 No 5mg Common [place] 8-25 Spirit 00:00: - CHI 00 [facility] Kenalog Kenalog 2-0 No 40mg Common (Triamcinol (Triamcinol 8-25 S pirit one) one) 00:00: - CHI [facility] Bupivicaine Bupivicaine 2021-0 No 5mg Common [place] 8-25 Spirit 00:00: - CHI [facility] Kenalog Kenalog 2021-0 No 40mg Common (Triamcinol (Triamcinol 8-25 S pirit one) one) 00:00: - CHI [facility] Bupivicaine Bupivicaine 2021-0 No 5mg Common [place] 8-25 Spirit 00:00: - [facility] nirmatrelvi 2021-0 Yes [id number] 3{tbl} Take 3 Univers r-ritonavir 8-06 tablets by it y of (PAXLOVID, 00:00: mouth in [place] as EUA,) 150 00 the Medical mg x 2- 100 morning Branc h mg tablet and 3 tablets in the evening. bromphenira 2021-0 Yes [id number] 5mL Take 5 mL Univers mine-pseudo 8-06 by mouth 4 it y of ephedrine-D 00:00: [place] ([place]OMF[place] 00 times Medical DM) 2-30-10 daily as Bran ch mg/5 mL needed for syrup Congestion /Allergies . nirmatrelvi 0 Yes [id number] 3{tbl} Take 3 Univers r-ritonavir 8-06 tablets by it y of (PAXLOVID, 00:00: mouth in [place] as EUA,) 150 00 the Medical mg x 2- 100 morning Branc h mg tablet and 3 tablets in the evening. bromphenira 2021-0 Yes [id number] 5mL Take 5 mL Univers mine-pseudo 8-06 by mouth 4 it y of ephedrine-D 00:00: ([place] (BROMF[place] 00 times Medical DM) 2-30-10 daily as Bran ch mg/5 mL needed for syrup Congestion /Allergies . nirmatrelvi 0 Yes [id number] 3{tbl} Take 3 Univers r-ritonavir 8-06 tablets by it y of (PAXLOVID, 00:00: mouth in [place] as EUA,) 150 00 the Medical mg x 2- 100 morning Branc h mg tablet and 3 tablets in the evening. bromphenira 2021-0 Yes [id number] 5mL Take 5 mL Univers mine-pseudo 8-06 by mouth 4 it y of ephedrine-D 00:00: ([place] (BROMF[place] 00 times Medical DM) 2-30-10 daily as Bran ch mg/5 mL needed for syrup Congestion /Allergies . nirmatrelvi 2021-0 Yes [id number] 3{tbl} Take 3 Univers r-ritonavir 8-06 tablets by it y of (PAXLOVID, 00:00: mouth in [place] as EUA,) 150 00 the Medical mg x 2- 100 morning Branc h mg tablet and 3 tablets in the evening. bromphenira 2021-0 Yes [id number] 5mL Take 5 mL Univers mine-pseudo 8-06 by mouth 4 it y of ephedrine-D 00:00: (four[place] (BROMF[place] 00 times Medical DM) 2-30-10 daily as Bran ch mg/5 mL needed for syrup Congestion /Allergies . nirmatrelvi 2021-0 Yes [id number] 3{tbl} Take 3 Univers r-ritonavir 8-06 tablets by it y of (PAXLOVID, 00:00: mouth in [place] as EUA,) 150 00 the Medical mg x 2- 100 morning Branc h mg tablet and 3 tablets in the evening. bromphenira 2021-0 Yes [id number] 5mL Take 5 mL Univers mine-pseudo 8-06 by mouth 4 it y of ephedrine-D 00:00: (four[place] (BROMFED 00 times Medical DM) 2-30-10 daily as Bran ch mg/5 mL needed for syrup Congestion /Allergies . Kenalog Kenalog 2021-0 No 40mg Common (Triamcinol (Triamcinol 6-06 S pirit one) one) 00:00: - CHI 00 [facility] Bupivicaine Bupivicaine 2-0 No 2.5mg Common [place] 6-06 Spirit 00:00: - CHI 00 [facility] Kenalog Kenalog 2-0 No 40mg Common (Triamcinol (Triamcinol 6-06 S pirit one) one) 00:00: - CHI 00 [facility] Bupivicaine Bupivicaine 2-0 No 2.5mg Common [place] 6-06 Spirit 00:00: - CHI 00 [facility] Kenalog Kenalog 2021-0 No 40mg Common (Triamcinol (Triamcinol 6-06 S pirit one) one) 00:00: - CHI 00 [facility] Bupivicaine Bupivicaine 2-0 No 2.5mg Common [place] 6-06 Spirit 00:00: - CHI 00 [facility] Kenalog Kenalog 2021-0 No 40mg Common (Triamcinol (Triamcinol 6-06 S pirit one) one) 00:00: - CHI 00 [facility] Bupivicaine Bupivicaine 2-0 No 2.5mg Common [place] 6- Spirit 00:00: - CHI 00 [facility] Kenalog Kenalog 2021-0 No 40mg Common (Triamcinol (Triamcinol 6-06 S pirit one) one) 00:00: - CHI 00 [facility] Bupivicaine Bupivicaine 2-0 No 2.5mg Common [place] 6- Spirit 00:00: - CHI 00 [facility] Kenalog Kenalog 2021-0 No 40mg Common (Triamcinol (Triamcinol 6-06 S pirit one) one) 00:00: - CHI 00 [facility] Bupivicaine Bupivicaine 2-0 No 2.5mg Common [place] 6- Spirit 00:00: - CHI 00 [facility] Kenalog Kenalog 2-0 No 40mg Common (Triamcinol (Triamcinol 6-06 S pirit one) one) 00:00: - CHI 00 [facility] Bupivicaine Bupivicaine 2-0 No 2.5mg Common [place] 6-06 Spirit 00:00: - CHI 00 [facility] Kenalog Kenalog 2-0 No 40mg Common (Triamcinol (Triamcinol 6-06 S pirit one) one) 00:00: - CHI 00 [facility] Bupivicaine Bupivicaine 2-0 No 2.5mg Common [place] 6-06 Spirit 00:00: - CHI 00 [facility] Kenalog Kenalog 2021-0 No 40mg Common (Triamcinol (Triamcinol 6-06 S pirit one) one) 00:00: - CHI 00 [facility] Bupivicaine Bupivicaine 2-0 No 2.5mg Common [place] 6-06 Spirit 00:00: - CHI 00 [facility] Kenalog Kenalog 2021-0 No 40mg Common (Triamcinol (Triamcinol 6-06 S pirit one) one) 00:00: - CHI 00 [facility] Bupivicaine Bupivicaine 2021-0 No 2.5mg Common [place] 6-06 Spirit 00:00: - CHI 00 [facility] Kenalog Kenalog 2021-0 No 40mg Common (Triamcinol (Triamcinol 6-06 S pirit one) one) 00:00: - CHI 00 [facility] Bupivicaine Bupivicaine 2021-0 No 2.5mg Common [place] 6-06 Spirit 00:00: - CHI 00 [facility] Kenalog Kenalog 2021-0 No 40mg Common (Triamcinol (Triamcinol 6-06 S pirit one) one) 00:00: - CHI 00 [facility] Bupivicaine Bupivicaine 2021-0 No 2.5mg Common [place] 6-06 Spirit 00:00: - CHI 00 [facility] Kenalog Kenalog 2021-0 No 40mg Common (Triamcinol (Triamcinol 6-06 S pirit one) one) 00:00: - CHI 00 [facility] Bupivicaine Bupivicaine 2021-0 No 2.5mg Common [place] 6-06 Spirit 00:00: - CHI 00 [facility] Bupivicaine Bupivicaine 2020-0 No 2.5mg Common [place] 1-21 Spirit 00:00: - CHI 00 [facility] Kenalog Kenalog 2020-0 No 40mg Common (Triamcinol (Triamcinol 1-21 S pirit one) one) 00:00: - CHI 00 [facility] Bupivicaine Bupivicaine 2020-0 No 2.5mg Common [place] 1-21 Spirit 00:00: - CHI 00 [facility] Kenalog Kenalog 2020-0 No 40mg Common (Triamcinol (Triamcinol 1-21 S pirit one) one) 00:00: - CHI 00 [facility] Bupivicaine Bupivicaine 2020-0 No 2.5mg Common [place] 1-21 Spirit 00:00: - CHI 00 [facility] Kenalog Kenalog 2020-0 No 40mg Common (Triamcinol (Triamcinol 1-21 S pirit one) one) 00:00: - CHI 00 [facility] Bupivicaine Bupivicaine 2020-0 No 2.5mg Common [place] 1-21 Spirit 00:00: - CHI 00 [facility] Alexanderalog Kenalog 2020-0 No 40mg Common (Triamcinol (Triamcinol 1-21 S pirit one) one) 00:00: - CHI 00 [facility] Bupivicaine Bupivicaine 2020-0 No 2.5mg Common [place] 1-21 Spirit 00:00: - CHI 00 [facility] Alexanderalog Kenalog 2020-0 No 40mg Common (Triamcinol (Triamcinol 1-21 S pirit one) one) 00:00: - CHI 00 [facility] Bupivicaine Bupivicaine 2020-0 No 2.5mg Common [place] 1-21 Spirit 00:00: - CHI 00 [facility] Kenalog Kenalog 2020-0 No 40mg Common (Triamcinol (Triamcinol 1-21 S pirit one) one) 00:00: - CHI 00 [facility] Bupivicaine Bupivicaine 2020-0 No 2.5mg Common [place] 1-21 Spirit 00:00: - CHI 00 [facility] Kenalog Kenalog 2020-0 No 40mg Common (Triamcinol (Triamcinol 1-21 S pirit one) one) 00:00: - CHI 00 [facility] Bupivicaine Bupivicaine 2020-0 No 2.5mg Common [place] 1-21 Spirit 00:00: - CHI 00 [facility] Kenalog Kenalog 2020-0 No 40mg Common (Triamcinol (Triamcinol 1-21 S pirit one) one) 00:00: - CHI 00 [facility] Bupivicaine Bupivicaine 2020-0 No 2.5mg Common [place] 1-21 Spirit 00:00: - CHI 00 [facility] Kenalog Kenalog 2020-0 No 40mg Common (Triamcinol (Triamcinol 1-21 S pirit one) one) 00:00: - CHI 00 [facility] Bupivicaine Bupivicaine 2020-0 No 2.5mg Common [place] 1-21 Spirit 00:00: - CHI 00 [facility] Kenalog Kenalog 2020-0 No 40mg Common (Triamcinol (Triamcinol 1-21 S pirit one) one) 00:00: - CHI 00 [facility] Bupivicaine Bupivicaine 2020-0 No 2.5mg Common [place] 1-21 Spirit 00:00: - CHI 00 [facility] Kenalog Kenalog 2020-0 No 40mg Common (Triamcinol (Triamcinol 1-21 S pirit one) one) 00:00: - CHI 00 [facility] Bupivicaine Bupivicaine 2020-0 No 2.5mg Common [place] 1-21 Spirit 00:00: - CHI 00 [facility] Kenalog Kenalog 2020-0 No 40mg Common (Triamcinol (Triamcinol 1-21 S pirit one) one) 00:00: - CHI 00 [facility] Bupivicaine Bupivicaine 2020-0 No 2.5mg Common [place] 1-21 Spirit 00:00: - CHI 00 [facility] Kenalog Kenalog 2020-0 No 40mg Common (Triamcinol (Triamcinol 1-21 S pirit one) one) 00:00: - CHI 00 [facility] Bupivicaine Bupivicaine 2020-0 No 5mL Common [place] 6-29 Spirit 00:00: - CHI 00 [facility] Kenalog Kenalog 2020-0 No 40mg Common (Triamcinol (Triamcinol 6-29 S pirit one) one) 00:00: - CHI 00 [facility] Bupivicaine Bupivicaine 2020-0 No 5mL Common [place] 6-29 Spirit 00:00: - CHI 00 [facility] Kenalog Kenalog 2020-0 No 40mg Common (Triamcinol (Triamcinol 6-29 S pirit one) one) 00:00: - CHI 00 [facility] Bupivicaine Bupivicaine 2020-0 No 5mL Common [place] 6-29 Spirit 00:00: - CHI 00 [facility] Kenalog Kenalog 2020-0 No 40mg Common (Triamcinol (Triamcinol 6-29 S pirit one) one) 00:00: - CHI 00 [facility] Bupivicaine Bupivicaine 2020-0 No 5mL Common [place] 6-29 Spirit 00:00: - CHI 00 [facility] Kenalog Kenalog 2020-0 No 40mg Common (Triamcinol (Triamcinol 6-29 S pirit one) one) 00:00: - CHI 00 [facility] Bupivicaine Bupivicaine 2020-0 No 5mL Common [place] 6-29 Spirit 00:00: - CHI 00 [facility] Kenalog Kenalog 2020-0 No 40mg Common (Triamcinol (Triamcinol 6-29 S pirit one) one) 00:00: - CHI 00 [facility] Bupivicaine Bupivicaine 2020-0 No 5mL Common [place] 6-29 Spirit 00:00: - CHI 00 [facility] Kenalog Kenalog 2020-0 No 40mg Common (Triamcinol (Triamcinol 6-29 S pirit one) one) 00:00: - CHI 00 [facility] Bupivicaine Bupivicaine 2020-0 No 5mL Common [place] 6-29 Spirit 00:00: - CHI 00 [facility] Kenalog Kenalog 2020-0 No 40mg Common (Triamcinol (Triamcinol 6-29 S pirit one) one) 00:00: - CHI 00 [facility] Bupivicaine Bupivicaine 2020-0 No 5mL Common [place] 6-29 Spirit 00:00: - CHI 00 [facility] Kenalog Kenalog 2020-0 No 40mg Common (Triamcinol (Triamcinol 6-29 S pirit one) one) 00:00: - CHI 00 [facility] Bupivicaine Bupivicaine 2020-0 No 5mL Common [place] 6-29 Spirit 00:00: - CHI 00 [facility] Kenalog Kenalog 2020-0 No 40mg Common (Triamcinol (Triamcinol 6-29 S pirit one) one) 00:00: - CHI 00 [facility] Bupivicaine Bupivicaine 2020-0 No 5mL Common [place] 6-29 Spirit 00:00: - CHI 00 [facility] Kenalog Kenalog 2020-0 No 40mg Common (Triamcinol (Triamcinol 6-29 S pirit one) one) 00:00: - CHI 00 [facility] Bupivicaine Bupivicaine 2020-0 No 5mL Common [place] 6-29 Spirit 00:00: - CHI 00 [facility] Kenalog Kenalog 2020-0 No 40mg Common (Triamcinol (Triamcinol 6-29 S pirit one) one) 00:00: - CHI 00 [facility] Bupivicaine Bupivicaine 2020-0 No 5mL Common [place] 6-29 Spirit 00:00: - CHI 00 [facility] Kenalog Kenalog 2020-0 No 40mg Common (Triamcinol (Triamcinol 6-29 S pirit one) one) 00:00: - CHI 00 [facility] Bupivicaine Bupivicaine 2020-0 No 5mL Common [place] 6-29 Spirit 00:00: - CHI 00 [facility] Kenalog Kenalog 2020-0 No 40mg Common (Triamcinol (Triamcinol 6-29 S pirit one) one) 00:00: - CHI 00 [facility] Vitamin D Vitamin D Yes Harinder 1 tablet Common [facility] - [facility] Magdalena Root Magdalena Root Yes Harinder as Common Zaman directed Spirit - CH[facility] Tumersaid Tumersaid Yes Harinder not Co mmon Zaman defined Spirit - [facility] Glucosamine Glucosamine Yes Harinder not Common Zaman defined Spirit - [facility] Magdalena Root Magdalena Root No Magdalena 550 [...] No Glucosamin e Zinc Zinc No Zinc Cyclobenzap Cyclobenzap No 1{table QD Cyclobenza rine HCl 10 rine HCl 10 t_at_be radha HCl MG MG dtime_a 10 MG s_neede d} Vitamin D Vitamin D No 1{table QD Vitamin D 2000 UNIT 2000 UNIT t} 2000 UNIT Glucosamine Glucosamine No Glucosamin e Magdalena Root Magdalena Root No Madgalena 550 MG 550 MG Root 550 MG Tumersaid Tumersaid No Tumersaid Zinc Zinc No Zinc Cyclobenzap Cyclobenzap No 1{table QD Cyclobenza rine HCl 10 rine HCl 10 t_at_be radha HCl MG MG dtime_a 10 MG s_neede d} Vitamin D Vitamin D No 1{table QD Vitamin D 2000 UNIT 2000 UNIT t} 2000 UNIT Glucosamine Glucosamine No Glucosamin e Magdalena Root Magdalena Root No Magdalena 550 MG 550 MG Root 550 MG Tumersaid Tumersaid No Tumersaid Glucosamine Glucosamine No Glucosamin e Zinc Zinc No Zinc Tumersaid Tumersaid No Tumersaid Mag[place]ena Root Magdalena Root No Magdalena 550 MG 550 MG Root 550 MG Vitamin D Vitamin D No 1{table QD Vitamin D 2000 UNIT 2000 UNIT t} 2000 UNIT Glucosamine Glucosamine No Glucosamin e Zinc Zinc No Zinc Tumersaid Tumersaid No Tumersaid Immunizations Ordered Filled Date Status Comments Source Immunization Name Immunization Name TDAP 2022-11-26 Completed [facility] 00:00:00 [facility] TDAP 2022-11-26 Completed [facility] 00:00:00 [facility] TDAP 2022-11-26 Completed [facility] 00:00:00 [facility] Bupivicaine [place] Bupivicaine [place] 2020-06-11 Completed [facility] - 16:37:00 [facility] Bupivicaine [place] Bupivicaine [place] 2020-06-11 Completed [facility] - 16:37:00 [facility] Kenalog Kenalog 2020-06-11 Completed [facility] - (Triamcinolone) (Triamcinolone) 16:36:00 [facility] Kenalog Kenalog 2020-06-11 Completed [facility] - (Triamcinolone) (Triamcinolone) 16:36:00 [facility] FluAD FluAD 2020-02-12 Completed [facility] - 08:25:00 [facility] FluAD FluAD 2020-02-12 Completed [facility] - 08:25:00 [facility] FluAD FluAD 2020-02-12 Completed [facility] - 08:25:00 [facility] FluAD FluAD 2020-02-12 Completed [facility] - 08:25:00 [facility] FluAD FluAD 2020-02-12 Completed [facility] - 08:25:00 [facility] FluAD FluAD 2020-02-12 Completed [facility] - 08:25:00 [facility] FluAD FluAD 2020-02-12 Completed [facility] - 08:25:00 [facility] FluAD FluAD 2020-02-12 Completed [facility] - 08:25:00 [facility] FluAD FluAD 2020-02-12 Completed [facility] - 08:25:00 [facility] FluAD FluAD 2020-02-12 Completed [facility] - 08:25:00 [facility] FluAD FluAD 2020-02-12 Completed [facility] - 08:25:00 [facility] FluAD FluAD 2020-02-12 Completed [facility] - 08:25:00 [facility] FluAD FluAD 2020-02-12 Completed [facility] - 08:25:00 [facility] Kenalog Kenalog 2019-11-18 Completed [facility] - (Triamcinolone) (Triamcinolone) 08:43:00 [facility] Kenalog Kenalog 2019-11-18 Completed [facility] - (Triamcinolone) (Triamcinolone) 08:43:00 [facility] Bupivicaine [place] Bupivicaine [place] 2019-11-18 Completed [facility] - 08:42:00 [facility] Bupivicaine [place] Bupivicaine [place] 2019-11-18 Completed [facility] - 08:42:00 [facility] FLUZONE HIGH DOSE FLUZONE HIGH DOSE 2019-01-28 Completed [facility] - OVER 65 OVER 65 08:37:00 [facility] FLUZONE HIGH DOSE FLUZONE HIGH DOSE 2019-01-28 Completed [facility] - OVER 65 OVER 65 08:37:00 [facility] FLUZONE HIGH DOSE FLUZONE HIGH DOSE 2019-01-28 Completed [facility] - OVER 65 OVER 65 08:37:00 [facility] FLUZONE HIGH DOSE FLUZONE HIGH DOSE 2019-01-28 Completed [facility] - OVER 65 OVER 65 08:37:00 [facility] FLUZONE HIGH DOSE FLUZONE HIGH DOSE 2019-01-28 Completed [facility] - OVER 65 OVER 65 08:37:00 [facility] FLUZONE HIGH DOSE FLUZONE HIGH DOSE 2019-01-28 Completed [facility] - OVER 65 OVER 65 08:37:00 [facility] FLUZONE HIGH DOSE FLUZONE HIGH DOSE 2019-01-28 Completed [facility] - OVER 65 OVER 65 08:37:00 [facility] FLUZONE HIGH DOSE FLUZONE HIGH DOSE 2019-01-28 Completed [facility] - OVER 65 OVER 65 08:37:00 [facility] FLUZONE HIGH DOSE FLUZONE HIGH DOSE 2019-01-28 Completed [facility] - OVER 65 OVER 65 08:37:00 [facility] FLUZONE HIGH DOSE FLUZONE HIGH DOSE 2019-01-28 Completed [facility] - OVER 65 OVER 65 08:37:00 [facility] FLUZONE HIGH DOSE FLUZONE HIGH DOSE 2019-01-28 Completed [facility] - OVER 65 OVER 65 08:37:00 [facility] FLUZONE HIGH DOSE FLUZONE HIGH DOSE 2019-01-28 Completed [facility] - OVER 65 OVER 65 08:37:00 [facility] FLUZONE HIGH DOSE FLUZONE HIGH DOSE 2019-01-28 Completed [facility] - OVER 65 OVER 65 08:37:00 [facility] FluAD FluAD Unknown Completed [facility] FLUZONE HIGH DOSE FLUZONE HIGH DOSE Unknown Completed [facility] - OVER 65 OVER 65 [facility] FluAD FluAD Unknown Completed [facility] FLUZONE HIGH DOSE FLUZONE HIGH DOSE Unknown Completed [facility] - OVER 65 OVER 65 [facility] Vital Signs Vital Name Observation Time Observation Value Comments Source Systolic blood 2022-11-26 15:49:00 184 mm[Hg] [facility]iver [facility] Diastolic blood 2022-11-26 15:49:00 92 mm[Hg] Unive rsity [facility] Heart rate 2022-11-26 15:49:00 73 /min [facility] Body temperature 2022-11-26 15:49:00 36.83 [facility] Res[facility] rate 2022-11-26 15:49:00 14 /min [facility] Body height 2022-11-26 15:49:00 172.7 cm [facility] Body weight 2022-11-26 15:49:00 93.532 kg [facility] BMI 2022-11-26 15:49:00 31.35 kg/m2 [facility] Oxygen saturation in 2022-11-26 15:49:00 96 /min [facility] blood by [facility] Pulse oximetry Branch height 2022-07-28 11:00:00 68 [in_i] [facility] weight 2022-07-28 11:00:00 211 [lb_av] [facility] temperature 2022-07-28 11:00:00 98.1 [degF] [facility] bmi 2022-07-28 11:00:00 32.08 kg/m2 [facility] oximetry 2022-07-28 11:00:00 94 % [facility] respiratory rate 2022-07-28 11:00:00 16 /min Comm on [facility] blood pressure 2022-07-28 11:00:00 137 mm[Hg] [facility] - systolic [facility] blood pressure 2022-07-28 11:00:00 78 mm[Hg] [facility] - diastolic [facility] height 2022-06-16 08:20:00 68 [in_i] [facility] weight 2022-06-16 08:20:00 211.4 [lb_av] [facility] temperature 2022-06-16 08:20:00 97.2 [degF] [facility] bmi 2022-06-16 08:20:00 32.14 kg/m2 [facility] oximetry 2022-06-16 08:20:00 98 % [facility] respiratory rate 2022-06-16 08:20:00 18 /min Comm on [facility] blood pressure 2022-06-16 08:20:00 138 mm[Hg] [facility] - [facility] blood pressure 2022-06-16 08:20:00 79 mm[Hg] [facility] - diastolic [facility] height 2022-03-14 08:00:00 68 [in_i] [facility] weight 2022-03-14 08:00:00 210.0 [lb_av] Common [facility] temperature 2022-03-14 08:00:00 97.9 [degF] [facility] bmi 2022-03-14 08:00:00 31.93 kg/m2 [facility] blood pressure 2022-03-14 08:00:00 134 mm[Hg] [facility] - systolic [facility] blood pressure 2022-03-14 08:00:00 84 mm[Hg] [facility] - diastolic [facility] height 2022-01-31 13:45:00 68 [in_i] [facility] weight 2022-01-31 13:45:00 207.7 [lb_av] [facility] - [facility] temperature 2022-01-31 13:45:00 96.3 [degF] [facility] bmi 2022-01-31 13:45:00 31.58 kg/m2 [facility] blood pressure 2022-01-31 13:45:00 138 mm[Hg] [facility] - systolic [facility] blood pressure 2022-01-31 13:45:00 84 mm[Hg] [facility] - [facility] height 2022-01-27 08:50:00 66.5 [in_i] [facility] weight 2022-01-27 08:50:00 203 [lb_av] [facility] temperature 2022-01-27 08:50:00 98.3 [degF] [facility] bmi 2022-01-27 08:50:00 32.27 kg/m2 [facility] oximetry 2022-01-27 08:50:00 95 % [facility] respiratory rate 2022-01-27 08:50:00 18 /min [facility] blood pressure 2022-01-27 08:50:00 136 mm[Hg] [facility] - systolic [facility] blood pressure 2022-01-27 08:50:00 82 mm[Hg] [facility] - [facility] height 2022-01-27 09:00:00 68 [in_i] [facility] weight 2022-01-27 09:00:00 203 [lb_av] [facility] temperature 2022-01-27 09:00:00 98.3 [degF] [facility] bmi 2022-01-27 09:00:00 30.86 kg/m2 [facility] oximetry 2022-01-27 09:00:00 95 % [facility] respiratory rate 2022-01-27 09:00:00 18 /min [facility] blood pressure 2022-01-27 09:00:00 136 mm[Hg] [facility] - systolic [facility] blood pressure 2022-01-27 09:00:00 82 mm[Hg] [facility] - diastolic [facility] height 2022-01-13 08:15:00 68 [in_i] [facility] weight 2022-01-13 08:15:00 209 [lb_av] [facility] temperature 2022-01-13 08:15:00 97.6 [degF] [facility] bmi 2022-01-13 08:15:00 31.77 kg/m2 [facility] blood pressure 2022-01-13 08:15:00 138 mm[Hg] [facility] - [facility] blood pressure 2022-01-13 08:15:00 84 mm[Hg] [facility] - diastolic [facility] Systolic blood 2021-12-25 22:09:00 157 mm[Hg] [facility] Diastolic blood 2021-12-25 22:09:00 85 mm[Hg] [facility] Heart rate 2021-12-25 22:09:00 76 /min [facility] Body temperature 2021-12-25 22:09:00 37 [facility] Respiratory rate 2021-12-25 22:09:00 18 /min [facility] Body height 2021-12-25 22:09:00 172.7 cm [facility] Body weight 2021-12-25 22:09:00 94.348 kg [facility] BMI 2021-12-25 22:09:00 31.63 kg/m2 [facility] Oxygen saturation in 2021-12-25 22:09:00 97 /min [facility] blood by [facility] Pulse oximetry Branch height 2021-12-21 08:00:00 68 [in_i] [facility] weight 2021-12-21 08:00:00 209.1 [lb_av] [facility] temperature 2021-12-21 08:00:00 97.2 [degF] [facility] bmi 2021-12-21 08:00:00 31.79 kg/m2 [facility] blood pressure 2021-12-21 08:00:00 138 mm[Hg] [facility] - [facility] blood pressure 2021-12-21 08:00:00 84 mm[Hg] [facility] - diastolic [facility] height 2021-10-25 08:00:00 68 [in_i] [facility] weight 2021-10-25 08:00:00 207 [lb_av] [facility] temperature 2021-10-25 08:00:00 97.3 [degF] [facility] bmi 2021-10-25 08:00:00 31.47 kg/m2 [facility] blood pressure 2021-10-25 08:00:00 146 mm[Hg] [facility] - [facility] blood pressure 2021-10-25 08:00:00 84 mm[Hg] [facility] - diastolic [facility] height 2021-02-08 08:40:00 68 [in_i] Common [facility] weight 2021-02-08 08:40:00 209.1 [lb_av] [facility] temperature 2021-02-08 08:40:00 98.0 [degF] [facility] bmi 2021-02-08 08:40:00 31.79 kg/m2 [facility] oximetry 2021-02-08 08:40:00 97 % [facility] respiratory rate 2021-02-08 08:40:00 18 /min [facility] on [facility] blood pressure 2021-02-08 08:40:00 138 mm[Hg] [facility] - systolic [facility] blood pressure 2021-02-08 08:40:00 72 mm[Hg] [facility] - diastolic [facility] Procedures Procedure Date / Time Performed Performing Clinician Sourc e XR FOOT <3 VW RIGHT 2022-11-26 16:16:08 Ant Burt [facility] TDAP VACCINE, >11 YRS, 2022-11-26 16:01:50 Ant Burt [facility] ASSIGNMENT OF BENEFITS 2022-11-26 15:37:21 Doctor Unassigned, No General acute hospital POCT SARS-COV-2 2021-12-25 22:20:00 [facility] ANTIGEN (BINAX NOW) Medical Bran ch Encounters Start End Encounter Admission Attending Care Care Encounter Source Date/Time Date/Time Type Type Clinicians Facility Department ID 2022-09-14 Outpatient Mccain, STLMLC [facility] [id number] Common 09:15:00 Earl 13235 [facility] 2022-07-28 Outpatient Mccain, STLC [facility] [id number] Common 10:49:01 Earl 73843 [facility] 2022-06-16 Outpatient Mccain, STLMLC [facility] [id number] Common 07:33:00 Earl 28006 [facility] 2022-01-17 Outpatient Mccain, STLMLC [facility] [id number] Common 11:09:01 Earl [id number] [facility] 2021-10-25 Outpatient Mccain, STLMLC ST[facility] [id number] Common 07:53:00 Earl 61931 [facility] 2021-06-16 Outpatient Mccain, STLC [facility] [id number] Common 14:27:53 Earl 90427 [facility] 2021-06-16 Outpatient Mccain, STLC [facility] [id number] Common 13:51:26 Aerl 55579 [facility] 2021-06-16 Outpatient Mccain, STLMLC [facility] [id number] Common 13:50:23 Earl 44186 [facility] 2021-06-16 Outpatient Mccain, STLMLC [facility] [id number] Common 13:03:35 Earl 47985 [facility] 2021-06-16 Outpatient Mccain, STLMLC [facility] [id number] Common 12:43:15 Earl 82399 [facility] 2021-06-16 Outpatient Mccain, STLMLC [facility] [id number] Common 12:25:45 Earl 42613 [facility] 2021-06-16 Outpatient Mccain, STLMLC [facility] [id number] Common 12:23:39 Earl 73694 [facility] 2021-06-16 Outpatient Mccain, STLMLC [facility] [id number] Common 12:23:14 Earl 34275 [facility] 2021-06-16 Outpatient Mccain, STLMLC [facility] [id number] Common 12:22:53 Earl [id number] [facility] 2021-06-16 Outpatient Mccain, STLMLC [facility] [id number] Common 12:18:10 Earl [id number] [facility] 2021-06-16 Outpatient Mccain, STLC [facility] [id number] Common 12:13:36 Earl 17092 [facility] 2021-06-16 Outpatient Mccain, STLC [facility] [id number] Common 11:28:23 Earl 93936 [facility] 2022-11-26 2022-11-26 Outpatient [facility] [id number] Univers 11:01:19 23:59:00 [facility] 2022-11-26 2022-11-26 [facility] [id number] Univers 11:01:19 23:59:00 Encounter [facility] [id number] ity of [place] [id number] Kenryo as TIERRA?BLEA [id number] Nj jorje MICHELE [address] [facility] 2022-11-26 2022-11-26 Urgent Ant Burt [facility] [id number] Univers 10:40:00 11:20:30 Care Unknown, Attending [facility] [id number] [facility] [id number] [place] as TIERRA?BLEA [id number] Nj dickristal [facility] [address] MEDICAL OFFICE [facility]ILDING 2022-11-26 2022-11-26 Orders Doctor ASHER [id number] Univers 00:00:00 00:00:00 Only Unassigned, GIL [id number] ity of [place] [facility] [id number] [place] as [phone] [address] 2022-07-28 2022-07-28 (TEL) STLMLC STLMLC [id number] Co mmon 00:00:00 00:00:00 [facility] - [facility] 2022-07-28 2022-07-28 OFFICE STLMLC STLMLC [id number] Co mmon 00:00:00 00:00:00 VISIT [facility] ESTAB PT - [facility]I LEVEL 3 [facility] 2022-06-16 2022-06-16 OFFICE STLMLC STLMLC [id number] Co mmon 00:00:00 00:00:00 [facility] ESTAB PT - CHI LEVEL 4 [facility] 2022-03-14 2022-03-14 OFFICE STLMLC STLMLC [id number] Co mmon 00:00:00 00:00:00 VISIT EST Spir it PT LEVEL 3 - [facility] 2022-01-31 2022-01-31 OFFICE STLMLC STLMLC [id number] Co mmon 00:00:00 00:00:00 [facility] ESTAB PT - [facility]I LEVEL 4 [facility] 2022-01-27 2022-01-27 OFFICE STLMLC STLMLC [id number] Co mmon 00:00:00 00:00:00 [facility] ESTAB PT - [facility] LEVEL 4 [facility] 2022-01-27 2022-01-27 SUB ANNUAL STLMLC STLMLC [id number] Common 00:00:00 00:00:00 MCR [facility] WELLNESS - CHI VISIT [facility] 2022-01-13 2022-01-13 OFFICE STLMLC STLMLC [id number] Co mmon 00:00:00 00:00:00 [facility] ESTAB PT - [facility]I LEVEL 4 [facility] 2021-12-27 2021-12-27 (TEL) STLMLC STLMLC [id number] Co mmon 00:00:00 00:00:00 [facility] - [facility] 2021-12-25 2021-12-25 Outpatient R [facility] [id number] Univers 17:00:00 17:25:45 [facility] 2021-12-25 2021-12-25 [facility] Eugenio [facility] [id number] Univers 17:00:00 17:25:45 Care [facility] [id number] it y [facility] [id number] [place] as TIERRA?BLEA [phone] [address] MEDICAL OFFICE BUILDING 2021-12-21 2021-12-21 (TEL) STLMLC STLC [id number] Co mmon 00:00:00 00:00:00 [facility] 2021-12-21 2021-12-21 OFFICE STLMLC STLMLC [id number] Co mmon 00:00:00 00:00:00 [facility]IT [facility] ESTAB PT - CHI LEVEL 4 [facility] 2021-11-12 2021-11-12 (TEL) STLMLC STLMLC [id number] Co mmon 00:00:00 00:00:00 [facility] - [facility] 2021-10-25 2021-10-25 OFFICE STLMLC STLMLC [id number] Co mmon 00:00:00 00:00:00 VISIT [facility] ESTAB PT - CHI LEVEL 4 [facility] 2021-03-10 2021-03-10 (TEL) STLMLC STLMLC [id number] Co mmon 00:00:00 00:00:00 [facility] 2021-02-08 2021-02-08 OFFICE STLMLC STLMLC [id number] Co mmon 00:00:00 00:00:00 VISIT [facility] 4 [facility] 2020-10-05 2020-10-05 Outpatient STLMLC STLMLC [id number] Common 00:00:00 00:00:00 [facility] 2020-10-05 2020-10-05 Outpatient STLMLC STLMLC [id number] Common 00:00:00 00:00:00 [facility] 2020-08-12 2020-08-12 Outpatient STLMLC STLMLC [id number] Common 00:00:00 00:00:00 [facility] 2020-07-28 2020-07-28 Outpatient STLMLC STLMLC [id number] Common 00:00:00 00:00:00 [facility] 2020-06-11 2020-06-11 Outpatient STLMLC STLMLC [id number] Common 00:00:00 00:00:00 [facility] 2020-06-11 2020-06-11 Outpatient STLMLC STLMLC [id number] Common 00:00:00 00:00:00 [facility] 2020-06-01 2020-06-01 Outpatient STLMLC STLMLC [id number] Common 00:00:00 00:00:00 [facility] 2020-05-27 2020-05-27 Outpatient STLMLC STLMLC [id number] Common 00:00:00 00:00:00 [facility] 2020-05-18 2020-05-18 Outpatient STLMLC STLMLC [id number] Common 00:00:00 00:00:00 [facility] 2020-05-05 2020-05-05 Outpatient STLMLC STLMLC [id number] Common 00:00:00 00:00:00 [facility] 2020-05-04 2020-05-04 Outpatient STLMLC STLMLC [id number] Common 00:00:00 00:00:00 [facility] 2020-02-12 2020-02-12 Outpatient STLMLC STLMLC [id number] Common 00:00:00 00:00:00 [facility] 2019-11-18 2019-11-18 [id number] Common 08:15:00 08:15:00 [facility] 2019-10-28 2019-10-28 [facility] [id number] Common 09:30:00 09:30:00 [facility] 2019-10-10 2019-10-10 [facility] [id number] Common 09:00:00 09:00:[address] [facility] 2019-10-10 2019-10-10 [facility] [id number] Common 08:45:00 08:45:[address] [facility] 2019-05-27 2019-05-27 [facility] [id number] Common 08:15:00 08:15:[address] [facility] Results Test Description Test Time Test Comments [...] controls Lab Interpretation (test code = Abnormal 17669-2) [facility] Rt Wo Cont
[2023-03-27 13:04] LABS: Absolute Lymphocytes (CBC) 2.3 K/uL (0.7-4.9); Hematocrit 45.7 % (39.6-49.0); Lymphocytes % 24.5 % (15.3-44.8); MCV 93.4 fL (80-100); MPV 8.1 fL (7.6-11.3); Platelets 238 thou/uL (152-406)
[2023-03-27 13:07] LABS: Protime INR 1.07
[2023-03-27 13:26] LABS: Albumin 3.6 g/dL (3.4-5.0); Bilirubin Direct 0.2 mg/dL (0-0.2); Bilirubin Indirect, Calculated 0.4 mg/dL (0.2-0.8); Bilirubin Total 0.6 mg/dL (0.2-1.0); Potassium 3.8 mEq/L (3.5-5.1); Protein, Total 7.2 g/dL (6.4-8.2); Troponin High Sensitivity 5.2 pg/mL (<58.9)
--- NOTE | 2023-03-27 13:38 | ER ---
Nurse's Notes [facility] Name: Bandar Mayo Age: 67 yrs Sex: Male : 1955 Arrival Date: 03/27/2023 Time: 12:34 Bed 8 Private MD: Diagnosis: Chest pain, unspecified;Dyspnea, unspecified;Unstable angina Presentation: 03/27 12:47 Chief complaint: Patient states: "I've had chest pain since Monday. Today, I started mb9 having SOB and feeling dizzy. Dr. Olsen told me to come to the ER". Coronavirus screen: Vaccine status: Patient reports being unvaccinated. Ebola Screen: No symptoms or risks identified at this time. Initial Sepsis Screen: Does the patient meet any 2 criteria? No. Patient's initial sepsis screen is negative. Does the patient have a suspected source of infection? No. Patient's initial sepsis screen is negative. Risk Assessment: Do you want to hurt yourself or someone else? Patient reports no desire to harm self or others. Onset of symptoms was March 27, 2023. 12:47 Method Of Arrival: Ambulatory mb9 12:47 Acuity: SAMUEL 3 mb9 Triage Assessment: 12:49 General: Appears uncomfortable, Behavior is calm, cooperative. Pain: Complains of pain mb9 in chest Pain does not radiate. Pain currently is 2 out of 10 on a pain scale. Quality of pain is described as pressure, Pain began 2-3 days ago. Is continuous. EENT: No signs and/or symptoms were reported regarding the EENT system. Neuro: Shanks Agitation-Sedation Scale (RASS): 0 - Alert and Calm Level of Consciousness is awake, alert, obeys commands, Oriented to person, place, time, situation, Appropriate for age. Cardiovascular: Reports chest pain, lightheadedness, shortness of breath, Heart tones S1 S2 present Patient's skin is warm and dry. Respiratory: Reports shortness of breath Airway is patent Respiratory effort is even, unlabored, Respiratory pattern is regular, symmetrical, Breath sounds are clear bilaterally. GI: Abdomen is round non-distended, Bowel sounds present X 4 quads. Abd is soft and non tender X 4 quads. : No signs and/or symptoms were reported regarding the genitourinary system. Derm: Skin is pink, warm \\T\\ dry. Musculoskeletal: Range of motion: intact in all extremities. Historical: - Allergies: 12:48 No Known Allergies; mb9 - Home Meds: 12:48 losartan 50 mg oral tablet 1 tab daily [Active]; mb9 - PMHx: 12:48 Hypertensive disorder; mb9 - PSHx: 12:48 Cholecystectomy; carpal tunnel; bilateral shoulders; bilateral knees; mb9 - Immunization history:: Adult Immunizations up to date. - Social history:: Smoking status: Patient denies any tobacco usage or history of. - Family history:: not pertinent. - Hospitalizations: : No recent hospitalization is reported. Screenin:[address] [facility] ED Fall Risk Assessment (Adult) History of falling in the last 3 months, mb9 including since admission No falls in past 3 months (0 pts) Confusion or Disorientation No (0 pts) Intoxicated or Sedated No (0 pts) Impaired Gait No (0 pts) Mobility Assist Device Used No (0 pt) Altered Elimination No (0 pt) Score/Fall Risk Level 0 - 2 = Low Risk Oriented to surroundings, Maintained a safe environment, Educated pt \\T\\ family on fall prevention, incl call for assistance when getting out of bed. Abuse screen: Denies threats or abuse. Nutritional screening: No deficits noted. Tuberculosis screening: No symptoms or risk factors identified. Assessment: 12:51 Reassessment: see triage assessment. mb9 13:41 Reassessment: No changes from previously documented assessment. Patient and/or family mb9 updated on plan of care and expected duration. Pain level reassessed. Patient is alert, oriented x 3, equal unlabored respirations, skin warm/dry/pink. 14:45 Reassessment: See [facility] for further charting. mb9 Vital Signs: 12:47 BP 173 / 89; Pulse 78; Resp 18; Temp 98; Pulse Ox 98% on R/A; Weight 95.25 kg; Height 5 mb9 ft. 8 in. ; Pain 2/10; 13:45 BP 155 / 81; Pulse 70; Resp 17; Pulse Ox 95% ; ls5 12:47 Body Mass Index 31.93 (95.25 kg, 172.72 cm) mb9 12:47 Pain Scale: Adult mb9 ED Course: 12:36 Patient arrived in ED. mg5 12:37 Hardik You MD is Attending Physician. rn 12:41 Elayne Basilio, RN is Primary Nurse. mb9 12:41 Arm band placed on. mb9 12:42 Placed in gown. Bed in low position. Call light in reach. Side rails up X 1. Client mb9 placed on continuous cardiac and pulse oximetry monitoring. NIBP monitoring applied. glass finisher on. 12:48 Triage completed. mb9 12:50 EKG done, by ED staff, reviewed by Hardik You MD. Inserted saline lock: 20 gauge in mb9 right antecubital area, using aseptic technique. Blood collected. 12:51 Patient maintains SpO2 saturation greater than 95% on room air. mb9 12:51 Basic Metabolic Panel Sent. mb9 12:51 CBC with Diff Sent. mb9 12:51 LFT's Sent. mb9 12:51 NT PRO-BNP Sent. mb9 12:51 PT-INR Sent. mb9 12:51 Troponin HS Sent. mb9 13:37 Shaka You MD is Hospitalizing Provider. rn 13:46 XRAY Chest (1 view) In Process Unspecified. EDMS 14:25 No provider procedures requiring assistance completed. Patient admitted, IV remains in mb9 place. Administered Medications: No medications were administered Medication: 14:25 VIS not applicable for this client. mb9 Outcome: 13:38 Decision to Hospitalize by Provider. rn 17:26 Admitted to Med/surg via wheelchair, room 209, with chart, Report called to phyllis Ayon RN 17:26 Condition: stable 17:26 Instructed on the need for admit, 17:42 Patient left the ED. mbMelani Signatures: Dispatcher [employer] EDMS Hardik You MD MD rn Breneman, Mary Beth, RN RN Clyde Shepherd 5 [facility]
--- NOTE | 2023-03-27 13:38 | EDPHYS ---
Physician Documentation [facility] Name: Bandar Mayo Age: 67 yrs Sex: Male : 1955 Arrival Date: 03/27/2023 Time: 12:34 Bed 8 Private MD: ED Physician Hardik You HPI: 03/27 13:30 This 67 yrs old Male presents to ER via Ambulatory with complaints of Chest Pain, Sent rn By 13:30 The patient or guardian reports chest pain that is located primarily in the substernal rn area. 13:32 Onset: 2 day(s) ago. The pain does not radiate. Associated signs and symptoms: rn Pertinent positives: shortness of breath, Pertinent negatives: None. The chest pain is described as a heaviness, a pressure. Duration: The patient or guardian reports multiple episodes, that are intermittent. Modifying factors: The symptoms are alleviated by nothing. the symptoms are aggravated by nothing. Severity of pain: At its worst the pain was moderate in the emergency department the pain has improved. The patient has not experienced similar symptoms in the past. The patient has not recently seen a physician. Patient sent by Dr. Olsen for chest pain and dyspnea episodes happening over the last 2 to 3 days. No fever. No trauma. Reports lasts for an hour or 2 at a time. No current chest pain or shortness of breath. No abdominal pain. Dr. Olsen sent in for admission for heart cath.. Historical: - Allergies: 12:48 No Known Allergies; mb9 - Home Meds: 12:48 losartan 50 mg oral tablet 1 tab daily [Active]; mb9 - PMHx: 12:48 Hypertensive disorder; mb9 - PSHx: 12:48 Cholecystectomy; carpal tunnel; bilateral shoulders; bilateral knees; mb9 - Immunization history:: Adult Immunizations up to date. - Social history:: Smoking status: Patient denies any tobacco usage or history of. - Family history:: not pertinent. - Hospitalizations: : No recent hospitalization is reported. ROS: 13:32 Constitutional: Negative for fever, chills, and weight loss, Cardiovascular: Positive rn for chest pain Respiratory: Positive for shortness of breath Abdomen/GI: Negative for abdominal pain, nausea, vomiting, diarrhea, and constipation, MS/Extremity: Negative for injury and deformity, Skin: Negative for injury, rash, and discoloration, Neuro: Negative for headache, weakness, numbness, tingling, and seizure, Exam: 13:32 Constitutional: This is a well developed, well nourished patient who is awake, alert, rn and in no acute distress. Head/Face: Normocephalic, atraumatic. Cardiovascular: Regular rate and rhythm. No pulse deficits. Respiratory: No increased work of breathing, no retractions or nasal flaring. Abdomen/GI: Soft, non-tender Skin: Warm, dry MS/ Extremity: Pulses equal, no cyanosis. Neurovascular intact. Full, normal range of motion. Equal circumference. Neuro: Awake and alert, GCS 15 13:32 ECG was reviewed by the Attending Physician. Vital Signs: 12:47 BP 173 / 89; Pulse 78; Resp 18; Temp 98; Pulse Ox 98% on R/A; Weight 95.25 kg; Height 5 mb9 ft. 8 in. ; Pain 2/10; 13:45 BP 155 / 81; Pulse 70; Resp 17; Pulse Ox 95% ; ls5 12:47 Body Mass Index 31.93 (95.25 kg, 172.72 cm) mb9 12:47 Pain Scale: Adult mb9 MDM: 12:37 Patient medically screened. rn 13:35 Differential diagnosis: abnormal EKG, acute myocardial infarction, acute pericarditis, rn anxiety, coronary artery disease congestive heart failure costochondritis, gastritis, gastroesophageal reflux disease (GERD), pleurisy, pneumonia, pneumothorax. HEART Score: History: Moderately Suspicious (1), ECG: Non specific repolarization disturbance / LBTB / PM (1), Age: > or = 65 years (2), Risk Factors: 1 or 2 risk factors (1), Troponin: < or = 1 x Normal Limit (0), Total Score = 5. Data reviewed: vital signs, nurses notes, lab test result(s), EKG, and as a result, I will admit patient. Consideration of Admission/Observation Patient was admitted/placed on observation. Escalation of care including admission/observation considered. Management of patient was discussed with the following: Hat Lacer: Dr. Olsen consulted, case discussed, wants patient admitted for heart cath given concerning story.. Counseling: I had a detailed discussion with the patient and/or guardian regarding the historical points, exam findings, and any diagnostic results supporting the discharge/admit diagnosis, lab results, radiology results, the need for further work-up and treatment in the hospital. 03/27 12:37 Order name: Basic Metabolic Panel; Complete Time: 13:30 rn 03/27 12:37 Order name: CBC with Diff; Complete Time: 13:30 rn 03/27 12:37 Order name: LFT's; Complete Time: 13:30 rn 03/27 12:37 Order name: NT PRO-BNP; Complete Time: 13:30 rn 03/27 12:37 Order name: PT-INR; Complete Time: 13:30 rn 03/27 12:37 Order name: Troponin HS; Complete Time: 13:30 rn 03/27 14:18 Order name: Liver (Hepatic) Function EDMS 03/27 14:18 Order name: Thyroid Stimulating Hormone EDMS 03/27 14:18 Order name: Urinalysis w/ reflexes EDMS 03/27 14:18 Order name: CBC with Automated Diff EDMS 03/27 14:18 Order name: CBC with Automated Diff EDMS 03/27 14:18 Order name: CBC with Automated Diff EDMS 03/27 14:18 Order name: CBC with Automated Diff EDMS 03/27 14:18 Order name: Comprehensive Metabolic Panel EDMS 03/27 14:18 Order name: Comprehensive Metabolic Panel EDMS 03/27 14:18 Order name: Comprehensive Metabolic Panel EDMS 03/27 14:18 Order name: Comprehensive Metabolic Panel EDMS 03/27 14:18 Order name: Lipid Profile EDMS 03/27 14:18 Order name: Lipid Profile EDMS 03/27 14:18 Order name: Magnesium EDMS 03/27 14:18 Order name: Magnesium EDMS 03/27 14:18 Order name: Magnesium EDMS 03/27 14:18 Order name: Magnesium EDMS 03/27 14:18 Order name: Phosphorus EDMS 03/27 14:18 Order name: Phosphorus EDMS 03/27 14:18 Order name: Phosphorus EDMS 03/27 14:18 Order name: Phosphorus EDMS 03/27 14:18 Order name: Troponin High Sensitivity EDMS 03/27 14:18 Order name: Troponin High Sensitivity EDMS 03/27 14:18 Order name: Troponin High Sensitivity EDMS 03/27 12:37 Order name: XRAY Chest (1 view); Complete Time: 15:54 rn 03/27 12:37 Order name: EKG; Complete Time: 12:39 rn 03/27 14:17 Order name: CONS Physician Consult EDID 03/27 14:17 Order name: EKG Electrocardiogram EDID 03/27 14:17 Order name: EKG Electrocardiogram EDID 03/27 14:18 Order name: EKG Electrocardiogram EDID 03/27 12:37 Order name: Cardiac monitoring; Complete Time: 12:51 rn 03/27 12:37 Order name: EKG - Nurse/Tech; Complete Time: 12:48 rn 03/27 12:37 Order name: IV Saline Lock; Complete Time: 12:48 rn 03/27 12:37 Order name: Labs collected and sent; Complete Time: 12:48 rn 03/27 12:37 Order name: O2 Per Protocol; Complete Time: 12:51 rn 03/27 12:37 Order name: O2 Sat Monitoring; Complete Time: 12:51 rn EC:32 Rate is 70 beats/min. Rhythm is regular. QRS Jackson is Normal. OH interval is normal. QRS rn interval is normal. QT interval is normal. No Q waves. T waves are Normal. No ST changes noted. Clinical impression: NSR w/ Non-specific ST/T Changes and 1st degree heart block. Interpreted by me. Reviewed by me. Administered Medications: No medications were administered Disposition Summary: 03/27/23 13:38 Hospitalization Ordered Notes: Hospitalization Status: Observation rn Provider: Shaka You rn Condition: Stable rn Problem: new rn Symptoms: have improved rn Bed/Room Type: Standard rn Location: Telemetry/MedSurg (observation)(03/27/23 16:53) Room Assignment: 209(03/27/23 16:53) Diagnosis - Chest pain, unspecified rn - Dyspnea, unspecified rn - Unstable angina rn Forms: - Medication Reconciliation Form rn - SBAR form rn - Leadership Thank You Letter rn Signatures: Dispatcher [employer] [facility] Selam Jaramillo Roman, MD MD rn Bradberry, Kelly, RN RN kb3 Elayne Basilio, RN RN mb9 Corrections: (The following items were deleted from the chart) 14:58 13:38 Telemetry/MedSurg (observation) rn kb3 14:58 13:38 rn kb3 16:53 14:58 [facility] ER HOLD kb3 bd 16:53 14:58 ERHOLD- kb3 bd
[2023-03-27] MEDS ORDERED: ONDANSETRON 4 MG/2 ML VIAL IV PRN (14:12)
[2023-03-27] MEDS ORDERED: ACETAMINOPHEN 500 MG TAB PO PRN (14:12)
--- NOTE | 2023-03-27 14:20 | P.HP ---
Certification for Inpatient Patient admitted to: Observation With expected LOS: <2 Midnights Patient will require the following post-hospital care: None Practitioner: I am a practitioner with admitting privileges, knowledge of patient current condition, hospital course, and medical plan of care. Services: Services provided to patient in accordance with Admission requirements found in Title 42 Section 412.3 of the Code of Federal Regulations Patient History Date of Service: 03/27/23 Reason for admission: Chest pain History of Present Illness: Mr. Mayo is a 67-year-old male with history of hypertension presented to the ER [facility] ambulatory with complaints of chest pain. Patient was sent by his research psychologist Dr. Horne. Patient reports chest pain that is located primarily in the mid substernal area. Pain started 2 days ago. Pain did not radiate. Patient reports multiple episodes of chest pain, that is intermittent, alleviated by nothing, aggravated by nothing. Patient has never experienced similar symptoms in the past. Presently patient denies chest pain or shortness of breath. Patient is positive for shortness of breath, patient is negative for fever chills, abdominal pain, nausea, vomiting. ED course Vital signs blood pressure 173/89, pulse of 78, respiration 18, temperature 98, pulse ox 98% on room air. Initial EKG heart rate 70 bpm, rhythm regular, QRS axis is normal, OR interval is normal, QRS interval is normal, QT interval is normal, no Q waves. T waves are normal, no ST changes noted. Initial laboratory findings are within normal limits. Patient is admitted with a diagnosis of chest pain unspecified, dyspnea, unstable angina Allergies No Known Allergies Allergy (Unverified 04/25/12 23:14) Home medications list reviewed: Yes Home Medications: Losartan/Hydrochlorothiazide [Losartan-Hctz 50-12.5 mg Tab] 50 mg PO DAILY 03/27/23 - Past Medical/Surgical History Diabetic: No -: Hypertension -: Carpal Tunnel Surgery both hands -: Bilateral elbow surgery -: Bilateral Shoulder Tear Surgery -: Cholecystectomy -: Appendectomy -: Bilateral knee surgery - Family History Father Notes: lung cancer - Social History Smoking Status: Never smoker Alcohol use: Yes CD- Drugs: No Caffeine use: Yes Review of Systems 10-point ROS is otherwise unremarkable Physical Examination - Physical Exam General: Alert, Oriented x3 HEENT: Atraumatic, Normocephalic, PERRLA Neck: Supple, 2+ carotid pulse no bruit Respiratory: Clear to auscultation bilaterally, Normal air movement Cardiovascular: No edema, Regular rate/rhythm, Normal S1 S2 Gastrointestinal: Normal bowel sounds, Soft and benign Integumentary: No rashes, No breakdown Neurological: Normal gait, Normal speech, Normal affect - Studies Laboratory Data (last 24 hrs) 03/27/23 03/27/23 03/27/23 12:53 12:53 12:53 WBC 9.60 Hgb 15.9 Hct 45.7 Plt Count 238 PT 11.8 INR 1.07 Sodium 136 Potassium 3.8 BUN 11 Creatinine 0.90 Glucose 101 Total Bilirubin 0.6 AST 57 H ALT 104 H Alkaline Phosphatase 121 H Assessment and Plan - Problems (Diagnosis) (1) Chest pain Onset Date: 06/08/18 Current Visit: No Status: Acute Plan: -Acute, Chest Pain, concern for Acute Coronary Syndrome (Non-ST Segment Elevation Myocardial Infarction) -Based on history and physical examination, cannot exclude ischemia . - Evaluation thus far: - EKG: No obvious ST segment changes, trend - Serial troponin - Ordered transthoracic echocardiogram - Ordered chest x-ray - Ordered d-dimer - Management plan: - Consult Cardiology - recommendations appreciated - S/P aspirin 324 mg PO x 1 in ED - Start daily baby aspirin - Symptom control with PRN acetaminophen, nitroglycerin, morphine - If CAD is confirmed, plan to start beta-lacy, ASHWIN-inhibitor/ARB, statin with 24 hours Qualifiers: Chest pain type: unspecified Qualified Code(s): R07.9 - Chest pain, unspecified (2) Chest pain, rule out acute myocardial infarction Current Visit: No Status: Acute (3) Elevated LFTs Onset Date: 06/08/18 Current Visit: No Status: Acute Plan: Chronic everyday using alcohol Discussed to moderate use of alcohol Patient voiced understanding We will continue to monitor hepatic panel (4) History of alcohol abuse Current Visit: No Status: Acute (5) Hypertension Onset Date: 06/08/18 Current Visit: No Status: Chronic Plan: Chronic, controlled on losartan at home History home medication Low-sodium diet Qualifiers: Hypertension type: primary hypertension Qualified Code(s): I10 - Essential (primary) hypertension Discharge Plan: Home Plan to discharge in: 24 Hours - Advance Directives Does patient have a Living Will: Yes Does patient have a Durable POA for Healthcare: Yes - Code Status/Comfort Care Code Status Assessed: Yes (Full code) Code Status: Full Code (Full code) Physician Review: Patient Assessed, Agree with Above Assessment and Plan Critical Care: No Time Spent Managing Pts Care (In Minutes): 55 (Minutes)
[2023-03-27] MEDS ORDERED: NITROGLYCERIN 0.4 MG/TAB SL PRN (14:51)
[2023-03-27] MEDS ORDERED: MORPHINE 4 MG/ML SYR IV PRN (14:51)
[2023-03-27 14:53] VITALS: BMI 31.7
[2023-03-27] MEDS: ENOXAPARIN 40 MG/0.4 ML SQ SCH (14:56)
[2023-03-27] MEDS ORDERED: ASPIRIN 325 MG TAB PO ONE (15:01)
[2023-03-27] MEDS ORDERED: ENOXAPARIN 40 MG/0.4 ML SQ ONE (15:07)
[2023-03-27] MEDS ORDERED: ASPIRIN 325 MG TAB ONE (15:24)
--- NOTE | 2023-03-27 15:36 | RAD REPORT ---
EXAM DESCRIPTION: RADChest Single View03/27/2023 1:45 pm CLINICAL HISTORY: CHEST PAIN COMPARISON: Chest Single View dated 07/27/2020; Chest Single View dated 06/07/2018; CHEST PA AND LAT 2 VIEW dated 10/29/2012; CHEST SINGLE VIEW dated 04/25/2012 TECHNIQUE: Portable AP view of the chest. FINDINGS: The lungs are clear. No pneumothorax or effusion. The cardiomediastinal contours are unre markable. IMPRESSION: No acute cardiopulmonary process.
[2023-03-27 20:24] LABS: Specific Gravity 1.009 (1.005-1.030); Urine Bilirubin NEGATIVE (Negative); Urine Blood Negative (Negative); Urine Clarity Clear (Clear); Urine Color Light-Yellow (Yellow); Urine Glucose NEGATIVE (Negative); Urine Protein NEGATIVE (Negative); Urine Urobilinogen Normal (Normal)
[2023-03-27 20:58] LABS: Albumin 3.1 g/dL (3.4-5.0); Bilirubin Direct 0.1 mg/dL (0-0.2); Bilirubin Indirect, Calculated 0.3 mg/dL (0.2-0.8); Bilirubin Total 0.4 mg/dL (0.2-1.0); Protein, Total 6.2 g/dL (6.4-8.2); Thyroid Stimulating Hormone 1.92 uIU/mL (0.358-3.740)
[2023-03-28 02:43] LABS: Absolute Lymphocytes (CBC) 2.9 K/uL (0.7-4.9); Hematocrit 41.9 % (39.6-49.0); Lymphocytes % 33.5 % (15.3-44.8); MCV 93.4 fL (80-100); MPV 8.7 fL (7.6-11.3); Platelets 204 thou/uL (152-406); RBC Red Blood Cell Count 4.49 M/uL (4.33-5.43)
[2023-03-28 03:12] LABS: Albumin 3.1 g/dL (3.4-5.0); Bilirubin Total 0.6 mg/dL (0.2-1.0); Magnesium 1.9 mg/dL (1.6-2.4); Phosphorus 3.6 mg/dL (2.5-4.9); Potassium 3.8 mEq/L (3.5-5.1)
[2023-03-28] MEDS: ENOXAPARIN 40 MG/0.4 ML SQ SCH (07:49)
[2023-03-28] MEDS ORDERED: NA CHLORIDE 0.9% 500 ML ONE ×2 (07:58→13:13)
[2023-03-28] MEDS ORDERED: KCL 20 MEQ/100 mL IVPB 20 MEQ/100 ML BAG IV SCH (08:00)
[2023-03-28] MEDS ORDERED: NA CHLORIDE 0.9% 1,000 ML ONE (08:18)
--- NOTE | 2023-03-28 08:21 | P.PN ---
Subjective Date of Service: 03/28/23 Chief Complaint: Chest pain Subjective: No new changes, Ambulating, Improving Patient is alert oriented x3 For heart cath today Patient is n.p.o. Mild chest discomfort on and off no pain at this time Review of Systems 10-point ROS is otherwise unremarkable Physical Examination - Vital Signs Temperature: 99 F Blood Pressure: 139/75 Pulse: 66 Respirations: 18 Pulse Ox (%): 95 - Physical Exam General: Alert, Oriented x3 HEENT: Atraumatic, Normocephalic, PERRLA Neck: 2+ carotid pulse no bruit Respiratory: Clear to auscultation bilaterally, Normal air movement Cardiovascular: No edema, Normal S1 S2 Capillary refill: <2 Seconds Gastrointestinal: Normal bowel sounds, Hypoactive, Soft and benign Musculoskeletal: No clubbing, No swelling Integumentary: No rashes, No breakdown Neurological: Normal gait, Normal speech, Normal affect - Studies Laboratory Data (last 24 hrs) 03/27/23 03/27/23 03/27/23 12:53 12:53 12:53 WBC 9.60 Hgb 15.9 Hct 45.7 Plt Count 238 PT 11.8 INR 1.07 Sodium 136 Potassium 3.8 BUN 11 Creatinine 0.90 Glucose 101 Total Bilirubin 0.6 AST 57 H ALT 104 H Alkaline Phosphatase 121 H Assessment And Plan - Current Problems (Diagnosis) (1) Chest pain Onset Date: 06/08/18 Current Visit: No Status: Acute Plan: -Acute, Chest Pain, concern for Acute Coronary Syndrome (Non-ST Segment Elevation Myocardial Infarction) -Based on history and physical examination, cannot exclude ischemia . - Evaluation thus far: - EKG: No obvious ST segment changes, trend - Serial troponin -ve sofar - Ordered transthoracic echocardiogram - Management plan: - Consult Cardiology -for cardiac cath today - S/P aspirin 324 mg PO x 1 in ED -On daily baby aspirin - Symptom control with PRN acetaminophen, nitroglycerin, morphine - If CAD is confirmed, plan to start beta-lacy, ASHWIN-inhibitor/ARB, statin with 24 hours Qualifiers: Chest pain type: unspecified Qualified Code(s): R07.9 - Chest pain, unspecified (2) Chest pain, rule out acute myocardial infarction Current Visit: No Status: Acute (3) Elevated LFTs Onset Date: 06/08/18 Current Visit: No Status: Acute Plan: Chronic everyday using alcohol Discussed to moderate use of alcohol Patient voiced understanding We will continue to monitor hepatic panel (4) History of alcohol abuse Current Visit: No Status: Acute (5) Hypertension Onset Date: 06/08/18 Current Visit: No Status: Chronic Plan: Chronic, controlled on losartan at home History home medication Low-sodium diet Qualifiers: Hypertension type: primary hypertension Qualified Code(s): I10 - Essential (primary) hypertension Discharge Plan: Home Plan to discharge in: 24 Hours - Code Status/Comfort Care Code Status Assessed: Yes (Full code) Code Status: Full Code Physician Review: Patient Assessed, Agree with Above Assessment and Plan Critical Care: No Time Spent Managing PTS Care (In Minutes): 35 (Minutes)
[2023-03-28] MEDS ORDERED: ASPIRIN EC 81 MG TAB PO SCH (09:00)
[2023-03-28] MEDS ORDERED: HEPA 1000U/500MLS 2,000 UNIT/1,000 ML BAG IV ONE (13:19)
[2023-03-28] MEDS ORDERED: LIDOCAINE 1% 20 ML MDV ONE (13:19)
[2023-03-28] MEDS ORDERED: FENTANYL CITR 100 MCG/2 ML ONE (13:20)
[2023-03-28] MEDS ORDERED: VERAPAMIL HCL 10 MG/4 ML VIAL IV ONE (13:20)
[2023-03-28] MEDS ORDERED: MIDAZOLAM HCL 2 MG/2 ML INJ ONE (13:20)
[2023-03-28] MEDS ORDERED: HEPARIN 5000 UNIT/ML 1 ML VIAL ONE (13:20)
[2023-03-28] MEDS ORDERED: CLOPIDOGREL 75 MG TABLET ONE (13:20)
[2023-03-28] MEDS ORDERED: ATROPINE SULF 1 MG/10 ML SYR IV ONE (13:21)
[2023-03-28] MEDS ORDERED: HEPARIN 10,000 UNIT/10 ML VIAL IV ONE (13:21)
[2023-03-28] MEDS ORDERED: ASPIRIN 325 MG TAB ONE (13:21)
[2023-03-28] MEDS ORDERED: TICAGRELOR 90 MG TABLET PO ONE (13:21)
[2023-03-28 14:03] VITALS: TEMP 99.4
--- NOTE | 2023-03-28 15:30 | OP ---
Date of Procedure: 03/28/2023 Surgeon: AMELIA SAUCEDA Procedures Performed: 1.Selective coronary angiogram. 2.Left heart catheterization. Indication: Unstable angina. Access: Right radial artery 6-Sammarinese closed with TR band. Complications: None. Bleeding: Less than 20 mL. Anesthesia: Total sedation time was 30 minutes. Description Of Procedure: After risks, benefits, alternatives were explained, patient agreed to proc edure and signed informal consent. The patient was brought into cardiac catheterization laboratory, prepped and draped in the usual sterile fashion and then I accessed right radial artery using Inotec AMD ic micropuncture kit, placed 6-Sammarinese Slender sheath and took 5-Sammarinese Flora 4.0 catheter into the ao rtic root, could not engage the left main or right coronary artery. So I exchanged for 6-Sammarinese 3DRC catheter, engaged the RCA, took standard views and the catheter was pushed over the wire into the LV , measured the LVEDP. Pullback did not record any gradient. Then I exchanged for 6-Sammarinese JL3.5 cat heter, engaged the left main, took standard views and then I removed the catheter and the sheath and placed TR band with good hemostasis. Findings: 1.Left main; large and normal. 2.LAD; large vessel, normal all the way to the mid to distal. After the diagonal 2 takeoff, there i s 20% to 30% focal stenosis. Both diagonals are normal. 3.Left circumflex is normal. 4.RCA; large and dominant, has mid 20% to 30% tandem lesions, distally 30% and the PDA and PLB appea rs to be normal. 5.LVEDP borderline elevated at 12 mmHg. Conclusion: 1.Mild nonobstructive coronary artery disease. 2.Mildly elevated LVEDP. Recommendation: Medical management. SR/MODL Voice ID: [id number] Report ID: [id number]
[2023-03-28 15:41] VITALS: O2SAT 97
[2023-03-28 15:50] VITALS: BP 143/69
--- NOTE | 2023-03-28 16:28 | P.DS ---
Admission Date: 03/27/23 Discharge Date: 03/28/23 Discharge Condition: GOOD Reason for Admission: Chest pain - Problems (1) Chest pain Onset Date: 06/08/18 Current Visit: No Status: Acute Qualifiers: Chest pain type: unspecified Qualified Code(s): R07.9 - Chest pain, unspecified (2) Chest pain, rule out acute myocardial infarction Current Visit: No Status: Acute (3) Elevated LFTs Onset Date: 06/08/18 Current Visit: No Status: Acute (4) History of alcohol abuse Current Visit: No Status: Acute (5) Hypertension Onset Date: 06/08/18 Current Visit: No Status: Chronic Qualifiers: Hypertension type: primary hypertension Qualified Code(s): I10 - Essential (primary) hypertension Brief History of Present Illness: Mr. Mayo is a 67-year-old male with history of hypertension presented to the ER [facility] ambulatory with complaints of chest pain. Patient was sent by his wild life manager Dr. Horne. Patient reports chest pain that is located primarily in the mid substernal area. Pain started 2 days ago. Pain did not radiate. Patient reports multiple episodes of chest pain, that is intermittent, allevi ated by nothing, aggravated by nothing. Patient has never experienced similar symptoms in the past. Presently patient denies chest pain or shortness of breath. Patient is positive for shortness of breath, patient is negative for fever chills, abdominal pain, nausea, vomiting. ED course Vital signs blood pressure 173/89, pulse of 78, respiration 18, temperature 98, pulse ox 98% on room air. Initial EKG heart rate 70 bpm, rhythm regular, QRS axis is normal, NE interval is normal, QRS interval is normal, QT interval is normal, no Q waves. T waves are normal, no ST changes noted. Initial lab oratory findings are within normal limits. Patient is admitted with a diagnosis of chest pain unspecified, dyspnea, unstable angina Hospital Course: Mr. Mayo is a pleasant 67-year-old male with a past medical history significant for hypertension who was admitted to the [facility] on 03/27/23 for chest pain. Patient's initial cardiac enzymes were negative, patient admitted on telemetry to monitor heart rate and rhythm. Patient was seen by wild life manager Dr. Olsen On 03/28/2023 patient had cardiac catheterization by Dr. Olsen. No cardiac intervention was done. Patient is deemed medically stable for discharge. Patient was discharged with instructions to schedule follow-up appointments with PCP in 3 to 5 days and wild life manager in 4 weeks. Vital Signs/Physical Exam: Temp Pulse Resp BP Pulse Ox 99.4 F 67 16 143/69 H 92 03/28/23 12:00 03/28/23 15:48 03/28/23 15:48 03/28/23 15:48 03/28/23 12:00 General: Alert, Oriented x3 HEENT: Atraumatic, Normocephalic Neck: 2+ carotid pulse no bruit Respiratory: Clear to auscultation bilaterally, Normal air movement Cardiovascular: No edema, Normal pulses, Normal S1 S2 Capillary refill: <2 Seconds Gastrointestinal: Normal bowel sounds, Soft and benign Musculoskeletal: No clubbing, No contractures Neurological: Normal gait, Normal speech Laboratory Data at Discharge: WBC 8.50 thou/uL (4.3-10.9) 03/28/23 01:47 Hgb 14.3 g/dL (13.6-17.9) D 03/28/23 01:47 Hct 41.9 % (39.6-49.0) 03/28/23 01:47 Plt Count 204 thou/uL (152-406) 03/28/23 01:47 PT 11.8 SECONDS (9.5-12.5) 03/27/23 12:53 INR 1.07 03/27/23 12:53 Sodium 136 mEq/L (136-145) 03/28/23 01:47 Potassium 3.8 mEq/L (3.5-5.1) 03/28/23 01:47 BUN 10 mg/dL (7-18) 03/28/23 01:47 Creatinine 0.75 mg/dL (0.70-1.30) 03/28/23 01:47 Glucose 101 mg/dL (74-106) 03/28/23 01:47 Phosphorus 3.6 mg/dL (2.5-4.9) 03/28/23 01:47 Magnesium 1.9 mg/dL (1.6-2.4) 03/28/23 01:47 Total Bilirubin 0.6 mg/dL (0.2-1.0) 03/28/23 01:47 AST 43 U/L (15-37) H 03/28/23 01:47 ALT 85 U/L (16-61) H 03/28/23 01:47 Alkaline Phosphatase 111 U/L (45-117) 03/28/23 01:47 Triglycerides 127 mg/dL (<150) 03/28/23 01:47 Cholesterol 170 mg/dL (<200) 03/28/23 01:47 HDL Cholesterol 68 mg/dL (40-60) H 03/28/23 01:47 Cholesterol/HDL Ratio 2.50 03/28/23 01:47 Home Medications: Losartan/Hydrochlorothiazide [Losartan-Hctz 50-12.5 mg Tab] 50 mg PO DAILY 03/27/23 Physician Discharge Instructions: Mr. Mayo is a pleasant 67-year-old male with a past medical history significant for hypertension who was admitted to the [facility] on 03/27/23 for chest pain. Patient's initial cardiac enzymes were negative, patient admitted on telemetry to monitor heart rate and rhythm. Patient was seen by wild life manager Dr. Olsen On 03/28/2023 patient had cardiac catheterization by Dr. Olsen. No cardiac intervention was done. Patient is deemed medically stable for discharge. Patient was discharged with instructions to schedule follow-up appointments with PCP in 3 to 5 days and wild life manager in 4 weeks. Diet: Low sodium Activity: Ad emilia Followup: Earl Mccain DO [Primary Care Provider] - Terry Olsen MD [ACTIVE - CAN ADMIT] - Time spent managing pt's care (in minutes): 55 (minutes)
--- NOTE | 2023-03-28 18:24 | CON ---
Date of Consultation: 03/28/2023 Reason For Consultation: Chest pain. History Of Present Illness: This is a 67-year-old male with history of hypertension and left ventric ular hypertrophy. He was evaluated at my office, and he was having chest pains earlier, and we did a stress test and that was normal; however, the patient came back complaining of significant heaviness of his left chest that radiates to the neck and the shoulder with minimal activities along with mini mal shortness of breath. At that time, the patient claimed that his pain was getting more frequent a nd he became very concerned and scared, so he presented to the emergency room and his cardiac enzymes have been negative and chest pain-free this morning. Past Medical History: 1.Hypertension. 2.LVH. Medications: Refer to reconciliation sheet for detailed list. Allergies: NO KNOWN DRUG ALLERGIES. Family History: No premature coronary artery disease or cancer. Social History: He does not smoke or drink. Does not use any drugs. Review of Systems: All systems reviewed and they were negative except as mentioned in the HPI. Physical Examination: Vital Signs: Reviewed. Head and Neck: Pupils are equal and reactive to light. Intact eye movements. No JVD. No cervical lymphadenopathy. Neck is supple. Thyroid is not enlarged. Lungs: Clear to auscultation bilaterally. No rhonchi, wheezing, or crackles. No accessory muscle u se. Heart: Regular rate and rhythm. No extra sounds. Abdomen: Soft, nontender. Bowel sounds positive. No organomegaly. No masses or hernia. No rigidi ty or rebound. Extremities: No edema, clubbing, or cyanosis. Intact pulses. Skin: No rash or nodule. Neurologic: Alert, awake, oriented x3. No acute focal deficits appreciated. Lymph Nodes: No cervical or inguinal lymphadenopathy. Investigations: Cardiac enzymes are negative. BUN is 10, creatinine 0.75, and troponin x3 are negat nate. Assessment And Recommendations: 1.Unstable angina. His chest pain is typical unstable angina. Given the fact that the pain is gett ing more frequent, plan for coronary angiogram to rule out triple-vessel disease or left main disease . To keep n.p.o. for that matter. Continue baby aspirin. 2.Hypertension. Blood pressure is controlled. Continue current therapy. 3.Left ventricular hypertrophy. Blood pressure is controlled and this will be monitored on an outpa tient basis. SR/MODL Voice ID: [id number] Report ID: [id number]
== END 2023-03-28 17:38 | disposition home or self-care (01) | DRG 287 ==
LOC: ER 12:34 → ERHOLD 14:10 → 2ND 17:27
PROVIDERS: ADMIT Internal Medicine Nephrology; ATTEND Internal Medicine Nephrology
PROC: B2111ZZ Fluoroscopy of Multiple Coronary Arteries using Low Osmolar Contrast (ICD-10-PCS; principal; 2023-03-28)
PROC: 4A023N7 Measurement of Cardiac Sampling and Pressure, Left Heart, Percutaneous Approach (ICD-10-PCS; 2023-03-28)
DX: I20.0 Unstable angina (principal); I10 Essential (primary) hypertension; I51.7 Cardiomegaly; R79.89 Other specified abnormal findings of blood chemistry; Z90.49 Acquired absence of other specified parts of digestive tract; Z79.899 Other long term (current) drug therapy
CPT/HCPCS: 36415; 71045; 76937; 80048; 80053; 80061; 80076; 81003; 83735; 83880; 84100; 84443; 84484; 85025; 85379; 85610; 93005; 93458; 99285; C1893; J0461; J1644; J1650; J2001; J2250; J3010; J3480; J7030; J7040; Q9966

== ENCOUNTER 2023-12-09 23:10 | Emergency (ER) | payer OTHER ==
--- OUTSIDE RECORDS SUMMARY | 2023-12-09 23:14 | XMS REPORT | Continuity of Care Document ---
Author Name Unknown Address [address] [facility] [place] [address] [facility] thconnect Address [address] [facility] [address] [place] [address] Care Team Providers Care Hr Shared Services Consultant Name Role Phone Pcp, Patient Does Not Have A Primary Care Physic lencho Earl Mccain Attending Clinician Unavailable ANT BURT Attending Clinician Unavailable Ant Lezama Attending Clinician Unknown, Attending Attending Clinician Unavailab le Doctor Unassigned, Abeytas Attending Clinician U KATHIA Strange Attending Clinician Unavailable Kathia De La Vega MD Attending Clinician Payers Payer Name Policy Type Policy Number Effective Date Expirati on Date Source MEDICARE PART A \T\ B [id number] 2018 00:00:00 COMMERCIAL NON-CONTRACT GENERIC [id number] 2022 00:00:00 MEDICARE LAWITAS MB [id number] C mon [facility] [employer] C1 [id number] [facility] INS[employer]ANCE COMPANY C1 [id number] [facility] MEDICARE NOVITAS MB [id number] C [facility] Problems Condition Name Condition Details Condition Category Status Onset Date Resolution Date Last Treatment Date Treating Clinician Comments Source No known active problems No known active problems Disease [facility] [id number] Primary osteoarthr itis, right shoulder Problem [facility] [id number] Tear of right rotator cuff, unspecifie d tear extent, unspecifie d whether traumatic Problem [facility] [id number] Incomplete tear of right rotator cuff, unspecifie d whether traumatic Problem [facility] [id number] Coronary artery disease involving [place] coronary artery of [place] heart with unstable angina pectoris Problem Common [facility] [id number] Unstable angina Problem [facility] [id number] Alcohol use disorder, mild, abuse Problem [facility] [id number] Fatigue, unspecifie d type Problem [facility] [id number] Former heavy tobacco smoker Problem [facility] [id number] Fatty liver, alcoholic Problem [facility] [id number] Mixed hyperlipid emia Problem [facility] [id number] HTN (hypertens ion), benign Problem [facility] [id number] LEONA (obstructi ve sleep apnea) Problem [facility] [id number] Primary osteoarthr itis of left shoulder Problem [facility] [id number] Adult BMI 31.0-31.9 kg/sq m Problem [facility] [id number] 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 Problem [facility] [id number] Diverticul osis large intestine w/o perforatio n or abscess w/bleeding Problem [facility] [id number] Repetitive intrusions of sleep Problem [facility] 10788287 Vitamin D deficiency disease Problem [facility] 73828943 Other chronic pain Problem [facility] 30599690 Familial hemochroma tosis Problem [facility] [id number] Nontraumat ic tear of left rotator cuff, unspecifie d tear extent Problem [facility] Allergies, Adverse Reactions, Alerts Allergy Name Allergy Type Status Severity Reaction(s) Onset Date Inactive Date Treating Clinician Comments Source NO KNOWN ALLERGIE S Drug Class Active [facility] Social History Social Habit Start Date Stop Date Quantity Comments Source History of Tobacco Use [facility] Sex Assigned At [facility] Exposure to SARS-CoV-2 (event) 2021-12-15 00:00:00 2021-12-25 17:05:00 Yes [facility] Tobacco use and exposure 2021-12-25 00:00:00 2021-12-25 00:00:00 Smokeless tobacco non-user [facility] Smoking Status Start Date Stop Date Source Ex-smoker 2021-12-25 00:00:00 2021-12-25 00:00:00 U [facility] Medications Ordered Medication Name Filled Medication Name Start Date Stop Date Current Medication? Ordering Clinician Indication Dosage Frequency Signature (SIG) Comments Components Source Atorvastati n Calcium 20 MG Atorvastati n Calcium 20 MG 2022-05 1- 00:00: 00 No 1{table t} QD Atorvastat in Calcium 20 MG ciprofloxac in HCl 500 mg tablet 11-26 00:00: 00 12-04 04:59 :00 No [id number] 500mg Take 1 tablet by mouth every 12 (twelve) hours for 7 days. [facility] Bupivicaine [place] Bupivicaine [place] 01-13 00:00: 00 No 5mg [facility] bromphenira mine-pseudo ephedrine-D M (BROMFED DM) 2-30-10 mg/5 mL syrup 12-25 00:00: 00 Yes [id number] 5mL Take 5 mL by mouth 4 (four) times daily as needed for Congestion /Allergies . [facility] nirmatrelvi r-ritonavir (PAXLOVID, EUA,) 150 mg x 2- 100 mg tablet 12-25 00:00: 00 Yes [id number] 3{tbl} Take 3 tablets by mouth in the morning and 3 tablets in the evening. [facility] Kenalog (Triamcinol one) Kenalog (Triamcinol one) 2019- 6 00:00: 00 No 40mg [facility] Zinc Zinc No 1{table t} QD Zinc Losartan Potassium 50 MG Losartan Potassium 50 MG No 1{table t} QD Losartan Potassium 50 MG amLODIPine Besylate 2.5 MG amLODIPine Besylate 2.5 MG No amLODIPine Besylate 2.5 MG Immunizations Ordered Immunization Name Filled Immunization Name Date Status Comments Source TDAP 2022-11-26 00:00:00 Completed [facility] TDAP 2022-11-26 00:00:00 Completed [facility] TDAP 2022-11-26 00:00:00 Completed [facility] Bupivicaine [place] Bupivicaine Eldorado 2020-06-11 16:37:00 Completed [facility] Bupivicaine [place] Bupivicaine [place] 2020-06-11 16:37:00 Completed [facility] Kenalog (Triamcinolone) Kenalog (Triamcinolone) 2020-06-11 16:36:00 Completed [facility] Kenalog (Triamcinolone) Kenalog (Triamcinolone) 2020-06-11 16:36:00 Completed [facility] FluAD FluAD 2020-02-12 08:25:00 Completed [facility] FluAD FluAD 2020-02-12 08:25:00 Completed [facility] FluAD FluAD 2020-02-12 08:25:00 Completed [facility] FluAD FluAD 2020-02-12 08:25:00 Completed [facility] FluAD FluAD 2020-02-12 08:25:00 Completed [facility] FluAD FluAD 2020-02-12 08:25:00 Completed [facility] FluAD FluAD 2020-02-12 08:25:00 Completed [facility] FluAD FluAD 2020-02-12 08:25:00 Completed [facility] FluAD FluAD 2020-02-12 08:25:00 Completed [facility] FluAD FluAD 2020-02-12 08:25:00 Completed [facility] FluAD FluAD 2020-02-12 08:25:00 Completed [facility] FluAD FluAD 2020-02-12 08:25:00 Completed [facility] FluAD FluAD 2020-02-12 08:25:00 Completed [facility] Kenalog (Triamcinolone) Kenalog (Triamcinolone) 2019-11-18 08:43:00 Completed [facility] Kenalog (Triamcinolone) Kenalog (Triamcinolone) 2019-11-18 08:43:00 Completed [facility] Bupivicaine [place] Bupivicaine [place]orado 2019-11-18 08:42:00 Completed [facility] Bupivicaine [place] Bupivicaine [place]ado 2019-11-18 08:42:00 Completed [facility] FLUZONE HIGH DOSE OVER 65 FLUZONE HIGH DOSE OVER 65 2019-01-28 08:37:00 Completed [facility] FLUZONE HIGH DOSE OVER 65 FLUZONE HIGH DOSE OVER 65 2019-01-28 08:37:00 Completed [facility] FLUZONE HIGH DOSE OVER 65 FLUZONE HIGH DOSE OVER 65 2019-01-28 08:37:00 Completed [facility] FLUZONE HIGH DOSE OVER 65 FLUZONE HIGH DOSE OVER 65 2019-01-28 08:37:00 Completed [facility] FLUZONE HIGH DOSE OVER 65 FLUZONE HIGH DOSE OVER 65 2019-01-28 08:37:00 Completed [facility] FLUZONE HIGH DOSE OVER 65 FLUZONE HIGH DOSE OVER 65 2019-01-28 08:37:00 Completed [facility] FLUZONE HIGH DOSE OVER 65 FLUZONE HIGH DOSE OVER 65 2019-01-28 08:37:00 Completed [facility] FLUZONE HIGH DOSE OVER 65 FLUZONE HIGH DOSE OVER 65 2019-01-28 08:37:00 Completed [facility] FLUZONE HIGH DOSE OVER 65 FLUZONE HIGH DOSE OVER 65 2019-01-28 08:37:00 Completed [facility] FLUZONE HIGH DOSE OVER 65 FLUZONE HIGH DOSE OVER 65 2019-01-28 08:37:00 Completed [facility] FLUZONE HIGH DOSE OVER 65 FLUZONE HIGH DOSE OVER 65 2019-01-28 08:37:00 Completed [facility] FLUZONE HIGH DOSE OVER 65 FLUZONE HIGH DOSE OVER 65 2019-01-28 08:37:00 Completed [facility] FLUZONE HIGH DOSE OVER 65 FLUZONE HIGH DOSE OVER 65 2019-01-28 08:37:00 Completed [facility] FluAD FluAD Unknown Completed [facility] FLUZONE HIGH DOSE OVER 65 FLUZONE HIGH DOSE OVER 65 Unknown Completed [facility] FluAD FluAD Unknown Completed [facility] FLUZONE HIGH DOSE OVER 65 FLUZONE HIGH DOSE OVER 65 Unknown Completed [facility] FluAD FluAD Unknown Completed [facility] FLUZONE HIGH DOSE OVER 65 FLUZONE HIGH DOSE OVER 65 Unknown Completed [facility] FluAD FluAD Unknown Completed [facility] FLUZONE HIGH DOSE OVER 65 FLUZONE HIGH DOSE OVER 65 Unknown Completed [facility] FluAD FluAD Unknown Completed [facility] FLUZONE HIGH DOSE OVER 65 FLUZONE HIGH DOSE OVER 65 Unknown Completed [facility] FluAD FluAD Unknown Completed [facility] FLUZONE HIGH DOSE OVER 65 FLUZONE HIGH DOSE OVER 65 Unknown Completed [facility] FluAD FluAD Unknown Completed [facility] FLUZONE HIGH DOSE OVER 65 FLUZONE HIGH DOSE OVER 65 Unknown Completed [facility] FluAD FluAD Unknown Completed [facility] FLUZONE HIGH DOSE OVER 65 FLUZONE HIGH DOSE OVER 65 Unknown Completed [facility] FluAD FluAD Unknown Completed [facility] FLUZONE HIGH DOSE OVER 65 FLUZONE HIGH DOSE OVER 65 Unknown Completed [facility] FluAD FluAD Unknown Completed [facility] FLUZONE HIGH DOSE OVER 65 FLUZONE HIGH DOSE OVER 65 Unknown Completed [facility] FluAD FluAD Unknown Completed [facility] FLUZONE HIGH DOSE OVER 65 FLUZONE HIGH DOSE OVER 65 Unknown Completed [facility] Vital Signs Vital Name Observation Time Observation Value Comments S ource height 2023-10-30 09:20:00 68 [in_i] Commo n [facility] weight 2023-10-30 09:20:00 210 [lb_av] Comm on [facility] temperature 2023-10-30 09:20:00 97.9 [degF] Com [facility] bmi 2023-10-30 09:20:00 31.93 kg/m2 Comm on [facility] oximetry 2023-10-30 09:20:00 98 % Commo n [facility] blood pressure systolic 2023-10-30 09:20:00 136 mm[Hg] [facility] blood pressure diastolic 2023-10-30 09:20:00 60 mm[Hg] [facility] height 2023-06-14 08:50:00 68 [in_i] Commo n [facility] weight 2023-06-14 08:50:00 208.6 [lb_av] Co mmon [facility] temperature 2023-06-14 08:50:00 98.2 [degF] Com [facility] bmi 2023-06-14 08:50:00 31.71 kg/m2 Comm on [facility] oximetry 2023-06-14 08:50:00 97 % Commo n [facility] blood pressure systolic 2023-06-14 08:50:00 136 mm[Hg] Common [facility] blood pressure diastolic 2023-06-14 08:50:00 74 mm[Hg] Common [facility] height 2023-06-14 09:00:00 68 [in_i] Commo n [facility] weight 2023-06-14 09:00:00 208.6 [lb_av] Co mmon [facility] temperature 2023-06-14 09:00:00 98.2 [degF] Com mon [facility] bmi 2023-06-14 09:00:00 31.71 kg/m2 Comm on [facility] oximetry 2023-06-14 09:00:00 97 % Commo n [facility] blood pressure systolic 2023-06-14 09:00:00 136 mm[Hg] Common [facility] blood pressure diastolic 2023-06-14 09:00:00 74 mm[Hg] Common [facility] height 2023-03-31 09:10:00 68 [in_i] Commo n [facility] weight 2023-03-31 09:10:00 208.2 [lb_av] Co mmon [facility] temperature 2023-03-31 09:10:00 98.2 [degF] Com mon [facility] bmi 2023-03-31 09:10:00 31.65 kg/m2 Comm on [facility] oximetry 2023-03-31 09:10:00 97 % Commo n [facility] respiratory rate 2023-03-31 09:10:00 18 /min Common [facility] blood pressure systolic 2023-03-31 09:10:00 135 mm[Hg] Common [facility] blood pressure diastolic 2023-03-31 09:10:00 76 mm[Hg] Common [facility] Body height 2022-11-26 15:49:00 172.7 cm [facility] Body weight 2022-11-26 15:49:00 93.532 kg [facility] BMI 2022-11-26 15:49:00 31.35 kg/m2 [facility] Oxygen saturation in Arterial blood by Pulse oximetry 2022-11-26 15:49:00 96 /min [facility] Systolic blood pressure 2022-11-26 15:49:00 184 mm[Hg] [facility] Diastolic blood pressure 2022-11-26 15:49:00 92 mm[Hg] [facility] Heart rate 2022-11-26 15:49:00 73 /min [facility] Body temperature 2022-11-26 15:49:00 36.83 Holli [facility] Respiratory rate 2022-11-26 15:49:00 14 /min [facility] height 2022-10-11 08:10:00 68 [in_i] Commo n [facility] weight 2022-10-11 08:10:00 205.6 [lb_av] Co mmon [facility] temperature 2022-10-11 08:10:00 98.3 [degF] Com mon [facility] bmi 2022-10-11 08:10:00 31.26 kg/m2 Comm on [facility] oximetry 2022-10-11 08:10:00 94 % Commo n [facility] respiratory rate 2022-10-11 08:10:00 16 /min Common [facility] blood pressure systolic 2022-10-11 08:10:00 130 mm[Hg] Common [facility] blood pressure diastolic 2022-10-11 08:10:00 80 mm[Hg] [facility] height 2022-07-28 11:00:00 68 [in_i] Commo n [facility] weight 2022-07-28 11:00:00 211 [lb_av] Comm on [facility] temperature 2022-07-28 11:00:00 98.1 [degF] Com [facility] bmi 2022-07-28 11:00:00 32.08 kg/m2 Comm on [facility] oximetry 2022-07-28 11:00:00 94 % Commo n [facility] respiratory rate 2022-07-28 11:00:00 16 /min [facility] blood pressure systolic 2022-07-28 11:00:00 137 mm[Hg] Common [facility] blood pressure diastolic 2022-07-28 11:00:00 78 mm[Hg] Common [facility] height 2022-06-16 08:20:00 68 [in_i] Commo n [facility] weight 2022-06-16 08:20:00 211.4 [lb_av] Co [facility] temperature 2022-06-16 08:20:00 97.2 [degF] Com [facility] bmi 2022-06-16 08:20:00 32.14 kg/m2 Comm on [facility] oximetry 2022-06-16 08:20:00 98 % Commo n [facility] respiratory rate 2022-06-16 08:20:00 18 /min [facility] blood pressure systolic 2022-06-16 08:20:00 138 mm[Hg] Common [facility] blood pressure diastolic 2022-06-16 08:20:00 79 mm[Hg] Common [facility] height 2022-03-14 08:00:00 68 [in_i] Commo n [facility] weight 2022-03-14 08:00:00 210.0 [lb_av] Co [facility] temperature 2022-03-14 08:00:00 97.9 [degF] Com [facility] bmi 2022-03-14 08:00:00 31.93 kg/m2 Comm on [facility] blood pressure systolic 2022-03-14 08:00:00 134 mm[Hg] Common [facility] blood pressure diastolic 2022-03-14 08:00:00 84 mm[Hg] Common [facility] height 2022-01-31 13:45:00 68 [in_i] Commo n [facility] weight 2022-01-31 13:45:00 207.7 [lb_av] Co mmon [facility] temperature 2022-01-31 13:45:00 96.3 [degF] Com mon [facility] bmi 2022-01-31 13:45:00 31.58 kg/m2 Comm on [facility] blood pressure systolic 2022-01-31 13:45:00 138 mm[Hg] Common [facility] blood pressure diastolic 2022-01-31 13:45:00 84 mm[Hg] Common [facility] height 2022-01-27 08:50:00 66.5 [in_i] Comm on [facility] weight 2022-01-27 08:50:00 203 [lb_av] Comm on [facility] temperature 2022-01-27 08:50:00 98.3 [degF] Com mon [facility] bmi 2022-01-27 08:50:00 32.27 kg/m2 Comm on [facility] oximetry 2022-01-27 08:50:00 95 % Commo n [facility] respiratory rate 2022-01-27 08:50:00 18 /min Common [facility] blood pressure systolic 2022-01-27 08:50:00 136 mm[Hg] Common [facility] blood pressure diastolic 2022-01-27 08:50:00 82 mm[Hg] Common [facility] height 2022-01-27 09:00:00 68 [in_i] Commo n [facility] weight 2022-01-27 09:00:00 203 [lb_av] Comm on [facility] temperature 2022-01-27 09:00:00 98.3 [degF] Com mon [facility] bmi 2022-01-27 09:00:00 30.86 kg/m2 Comm on [facility] oximetry 2022-01-27 09:00:00 95 % Commo n [facility] respiratory rate 2022-01-27 09:00:00 18 /min Common [facility] blood pressure systolic 2022-01-27 09:00:00 136 mm[Hg] [facility] blood pressure diastolic 2022-01-27 09:00:00 82 mm[Hg] [facility] height 2022-01-13 08:15:00 68 [in_i] Commo n [facility] weight 2022-01-13 08:15:00 209 [lb_av] Comm on [facility] temperature 2022-01-13 08:15:00 97.6 [degF] Com mon [facility] bmi 2022-01-13 08:15:00 31.77 kg/m2 Comm on [facility] blood pressure systolic 2022-01-13 08:15:00 138 mm[Hg] [facility] blood pressure diastolic 2022-01-13 08:15:00 84 mm[Hg] [facility] Systolic blood pressure 2021-12-25 22:09:00 157 mm[Hg] [facility] Diastolic blood pressure 2021-12-25 22:09:00 85 mm[Hg] [facility] Heart rate 2021-12-25 22:09:00 76 /min [facility] Body temperature 2021-12-25 22:09:00 37 Holli [facility] Respiratory rate 2021-12-25 22:09:00 18 /min [facility] Body height 2021-12-25 22:09:00 172.7 cm [facility] Body weight 2021-12-25 22:09:00 94.348 kg [facility] BMI 2021-12-25 22:09:00 31.63 kg/m2 [facility] Oxygen saturation in Arterial blood by Pulse oximetry 2021-12-25 22:09:00 97 /min [facility] height 2021-12-21 08:00:00 68 [in_i] Commo n [facility] weight 2021-12-21 08:00:00 209.1 [lb_av] Co mmon [facility] temperature 2021-12-21 08:00:00 97.2 [degF] Com [facility] bmi 2021-12-21 08:00:00 31.79 kg/m2 Comm on [facility] blood pressure systolic 2021-12-21 08:00:00 138 mm[Hg] Common [facility] blood pressure diastolic 2021-12-21 08:00:00 84 mm[Hg] Common [facility] height 2021-10-25 08:00:00 68 [in_i] Commo n [facility] weight 2021-10-25 08:00:00 207 [lb_av] Comm on [facility] temperature 2021-10-25 08:00:00 97.3 [degF] Com [facility] bmi 2021-10-25 08:00:00 31.47 kg/m2 Comm on [facility] blood pressure systolic 2021-10-25 08:00:00 146 mm[Hg] Common [facility] blood pressure diastolic 2021-10-25 08:00:00 84 mm[Hg] Common [facility] height 2021-02-08 08:40:00 68 [in_i] Commo n [facility] weight 2021-02-08 08:40:00 209.1 [lb_av] Co mmon [facility] temperature 2021-02-08 08:40:00 98.0 [degF] Com mon [facility] bmi 2021-02-08 08:40:00 31.79 kg/m2 Comm on [facility] oximetry 2021-02-08 08:40:00 97 % Commo n [facility] respiratory rate 2021-02-08 08:40:00 18 /min [facility] blood pressure systolic 2021-02-08 08:40:00 138 mm[Hg] Common [facility] blood pressure diastolic 2021-02-08 08:40:00 72 mm[Hg] [facility] Procedures Procedure Date / Time Performed Performing Clinicia n Source XR FOOT <3 VW RIGHT 2022-11-26 16:16:08 Darshan Burt [facility] TDAP VACCINE, >11 YRS, IM 2022-11-26 16:01:50 Ant Burt [facility] ASSIGNMENT OF BENEFITS 2022-11-26 15:37:21 Docto r Unassigned, Abeytas [facility] POCT SARS-COV-2 ANTIGEN (BINAX NOW) 2021-12-25 22:20:00 Maria Guadalupe Cardozo [facility] Encounters Start Date/Time End Date/Time Encounter Type Admission Type Attending Clinicians Care Facility Care Department Encounter ID Source 2023-10-26 11:54:00 Outpatient Mccain, [facility] [id number] [facility] 2023-06-12 10:31:00 [id number] 2023-04-21 08:27:00 [facility] [id number] [facility] 2022-09-14 09:15:00 Outpatient Mccain, [facility] [id number] [facility] 2022-07-28 10:49:01 Outpatient Mccain, [facility] [id number] [facility] 2022-06-16 07:33:00 Outpatient Mccain, Earl [facility] [id number] [facility] 2022-01-17 11:09:01 Outpatient Mccain, Earl [facility] [id number] [facility] 2021-10-25 07:53:00 Outpatient Mccain, Earl [facility] [id number] [facility] 2021-06-16 14:27:53 Outpatient Mccain, Earl [facility] [id number] [facility] 2021-06-16 13:51:26 Outpatient Mccain, Earl [facility] ST[facility] [id number] [facility] 2021-06-16 13:50:23 Outpatient Mccain, Earl [facility] [id number] [facility] 2021-06-16 13:03:35 Outpatient Mccain, Earl [facility] [id number] [facility] 2021-06-16 12:43:15 Outpatient Mccain, Earl [facility] [id number] [facility] 2021-06-16 12:25:45 Outpatient Mccain, Earl [facility] ST[facility] [id number] [facility] 2021-06-16 12:23:39 Outpatient Mccain, Earl [facility] ST[facility] [id number] [facility] 2021-06-16 12:23:14 Outpatient Mccain, Earl [facility] ST[facility] [id number] [facility] 2021-06-16 12:22:53 Outpatient Mccain, Earl [facility] ST[facility] [id number] [facility] 2021-06-16 12:18:10 Outpatient Mccain, Earl [facility] ST[facility] [id number] [facility] 2021-06-16 12:13:36 Outpatient Mccain, Earl STLC STL[facility] [id number] [facility] 2021-06-16 11:28:23 Outpatient Mccain, Earl [facility] ST[facility] [id number] [facility] 2023-11-13 00:00:00 2023-11-13 00:00:00 (TEL) STLMLC STL[facility]C [id number] [facility] 2023-10-30 00:00:00 2023-10-30 00:00:00 OFFICE VISIT ESTAB PT LEVEL 4 STLMLC STLMLC [id number] [facility] 2023-10-30 00:00:00 2023-10-30 00:00:00 (TEL) STLMLC STLMLC [id number] [facility] 2023-07-13 00:00:00 2023-07-13 00:00:00 (TEL) STLMLC STLMLC [id number] [facility] 2023-06-14 00:00:00 2023-06-14 00:00:00 OFFICE VISIT ESTAB PT LEVEL 4 STLMLC STLMLC [id number] [facility] 2023-06-14 00:00:00 2023-06-14 00:00:00 SUB [facility] VISIT STLMLC STLMLC [id number] [facility] 2023-06-14 00:00:00 2023-06-14 00:00:00 (TEL) STLMLC STLMLC [id number] [facility] 2023-03-31 00:00:00 2023-03-31 00:00:00 (HOSP F/U) Hospital Follow Up STLMLC STLMLC [id number] [facility] 2023-03-29 00:00:00 2023-03-29 00:00:00 (TEL) STLMLC STLMLC [id number] [facility] 2023-01-10 00:00:00 2023-01-10 00:00:00 (TEL) STLMLC STLMLC [id number] [facility] 2022-11-26 11:01:19 2022-11-26 23:59:00 Outpatient R ANT BURT [facility] [id number] [facility] 2022-11-26 11:01:19 2022-11-26 23:59:00 Hospital Encounter Ant Burt [facility] [id number] [facility] 2022-11-26 10:40:00 2022-11-26 11:20:30 Urgent Care Ant Burt Unknown, Attending [facility] [id number] [facility] 2022-11-26 00:00:00 2022-11-26 00:00:00 Orders Only Doctor Unassigned, Abeytas [facility] [id number] [facility] 2022-10-11 00:00:00 2022-10-11 00:00:00 OFFICE VISIT ESTAB PT LEVEL 4 STLMLC STLMLC [id number] [facility] 2022-07-28 00:00:00 2022-07-28 00:00:00 (TEL) STLMLC STLMLC [id number] [facility] 2022-07-28 00:00:00 2022-07-28 00:00:00 OFFICE VISIT ESTAB PT LEVEL 3 STLMLC STLMLC [id number] [facility] 2022-06-16 00:00:00 2022-06-16 00:00:00 OFFICE VISIT ESTAB PT LEVEL 4 STLMLC STLMLC [id number] [facility] 2022-03-14 00:00:00 2022-03-14 00:00:00 OFFICE VISIT EST PT LEVEL 3 STLMLC STLMLC [id number] [facility] 2022-01-31 00:00:00 2022-01-31 00:00:00 OFFICE VISIT ESTAB PT LEVEL 4 STLMLC STLMLC [id number] [facility] 2022-01-27 00:00:00 2022-01-27 00:00:00 OFFICE VISIT ESTAB PT LEVEL 4 STLMLC STLMLC [id number] [facility] 2022-01-27 00:00:00 2022-01-27 00:00:00 SUB [facility] VISIT STLMLC STLMLC [id number] [facility] 2022-01-13 00:00:00 2022-01-13 00:00:00 OFFICE VISIT ESTAB PT LEVEL 4 STLMLC STLMLC [id number] [facility] 2021-12-27 00:00:00 2021-12-27 00:00:00 (TEL) STLMLC STLMLC [id number] [facility] 2021-12-25 17:00:00 2021-12-25 17:25:45 Outpatient R KATHIA DE LA VEGA [facility] [id number] [facility] 2021-12-25 17:00:00 2021-12-25 17:25:45 Urgent Care Kathia De La Vega [facility] [id number] [facility] 2021-12-21 00:00:00 2021-12-21 00:00:00 (TEL) STLMLC STLMLC [id number] [facility] 2021-12-21 00:00:00 2021-12-21 00:00:00 OFFICE VISIT ESTAB PT LEVEL 4 STLMLC STLMLC [id number] [facility] 2021-11-12 00:00:00 2021-11-12 00:00:00 (TEL) STLMLC STLMLC [id number] [facility] 2021-10-25 00:00:00 2021-10-25 00:00:00 OFFICE VISIT ESTAB PT LEVEL 4 STLMLC STLMLC [id number] [facility] 2021-03-10 00:00:00 2021-03-10 00:00:00 (TEL) STLMLC STLMLC [id number] [facility] 2021-02-08 00:00:00 2021-02-08 00:00:00 OFFICE VISIT ESTAB PT LEVEL 4 STLMLC STLMLC [id number] [facility] 2020-10-05 00:00:00 2020-10-05 00:00:00 Outpatient STLMLC STLMLC [id number] [facility] 2020-10-05 00:00:00 2020-10-05 00:00:00 Outpatient STLMLC STLMLC [id number] [facility] 2020-08-12 00:00:00 2020-08-12 00:00:00 Outpatient STLMLC STLMLC [id number] [facility] 2020-07-28 00:00:00 2020-07-28 00:00:00 Outpatient STLMLC STLMLC [id number] [facility] 2020-06-11 00:00:00 2020-06-11 00:00:00 Outpatient STLMLC STLMLC [id number] [facility] 2020-06-11 00:00:00 2020-06-11 00:00:00 Outpatient STLMLC STLMLC [id number] [facility] 2020-06-01 00:00:00 2020-06-01 00:00:00 Outpatient STLMLC STLMLC [id number] [facility] 2020-05-27 00:00:00 2020-05-27 00:00:00 Outpatient STLMLC STLMLC [id number] [facility] 2020-05-18 00:00:00 2020-05-18 00:00:00 Outpatient STLMLC STLMLC [id number] [facility] 2020-05-05 00:00:00 2020-05-05 00:00:00 Outpatient STLMLC STLMLC [id number] [facility] 2020-05-04 00:00:00 2020-05-04 00:00:00 Outpatient STLMLC STLMLC [id number] [facility] 2020-02-12 00:00:00 2020-02-12 00:00:00 Outpatient STLMLC STLMLC [id number] [facility] 2019-11-18 08:15:00 2019-11-18 08:15:00 Outpatient [facility] [id number] [facility] 2019-10-28 09:30:00 2019-10-28 09:30:00 Outpatient [facility] [id number] [facility] 2019-10-10 09:00:00 2019-10-10 09:00:00 [address] [facility] [id number] [facility] 2019-10-10 08:45:00 2019-10-10 08:45:00 [address] [facility] [id number] [facility] 2019-05-27 08:15:00 2019-05-27 08:15:[address] [facility] [id number] [facility] Results Test Description Test Time Test Comments Results Result Co [facility] Shoulder Rt Wo Cont
[2023-12-09] MEDS ORDERED: CIPROFLOXACIN HCL 500 MG TAB ONE (23:57)
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
[2023-12-14 14:14] VITALS: BP 138/78; TEMP 98.7; O2SAT 100
== END 2023-12-10 00:55 | disposition home or self-care (01) ==
LOC: ER 23:10
DX: S91.312A Laceration without foreign body, left foot, initial encounter (principal); S91.311A Laceration without foreign body, right foot, initial encounter; W26.8XXA Contact with other sharp object(s), not elsewhere classified, initial encounter; Y93.89 Activity, other specified; Y92.832 Beach as the place of occurrence of the external cause
CPT/HCPCS: 99283